=== PATIENT | male | born 1965 | race Caucasian/White ===

== ENCOUNTER 2020-07-15 11:02 | Inpatient (IN) | payer BC ==
[2020-07-15] MEDS ORDERED: ETOMIDATE 2 MG/ML 10 ML VIAL IVP STA (11:09)
[2020-07-15] MEDS ORDERED: HEPARIN SODIUM,PORCINE 5,000 UNIT/ML 1 ML VIAL IV STA (11:12)
[2020-07-15] MEDS ORDERED: ASPIRIN 81 MG PO STA (11:13)
--- NOTE | 2020-07-15 11:15 | ED ---
CPR HPI - General Stated Complaint: cardiac Time Seen by Provider: 07/15/20 11:02 - History of Present Illness Initial Comments: Patient is a 54-year-old male with past medical history of pulmonary fibrosis who presents to the emergency department status post cardiopulmonary arrest. History is provided by EMS. They report that the patient was at home with his and daughter. He is complaining of indigestion which she frequently has. He was taking Tums and carbon tablets at home without improvement in his symptoms. use the pulse ox on the patient and found his heart rate to be 44. Reported to him that she was given a call EMS and at this time is when the patient collapsed. She started do compressions on the patient. Fire did arrive at the scene and found the patient to be in V. fib. He was shocked twice before EMS arrived. EMS reported that they also found the patient to be in V. fib. He was administered 300 mg of amiodarone, 3 epinephrine and [address] a Kevin tube and were able to get rosc after approximately 20 minutes down time. The patient does present to the emergency department in a sinus rhythm. Patient does not have any previous history of cardiac disease. The remainder of HPI is limited - Related Data Home Medications Medication Instructions Recorded Confirmed Cetirizine HCl 10 mg PO DAILY 07/15/20 07/15/20 Loperamide HCl [Imodium A-D] 2 - 4 mg PO QID PRN 07/15/20 07/15/20 Nintedanib Esylate [Ofev] 150 mg PO Q12H 07/15/20 07/15/20 Omeprazole Magnesium [PriLOSEC OTC] 20 mg PO DAILY 07/15/20 07/15/20 Allergies Allergy/AdvReac Type Severity Reaction Status Date / Time Penicillins Allergy Rash/Hives Verified 07/15/20 12:05 Review of Systems ROS Statement: Those systems with pertinent positive or pertinent negative responses have been documented in the HPI. ROS Other: All systems not noted in ROS Statement are negative. General Exam Limitations: altered mental status General appearance: obtunded Head exam: Present: atraumatic, normocephalic, normal inspection Pupils: Present: other (4 mm, equal, sluggish) ENT exam: Present: normal exam, mucous membranes moist, other (kevin tube in place) Neck exam: Present: normal inspection. Absent: tenderness, meningismus, lymphadenopathy Respiratory exam: Present: normal lung sounds bilaterally, other (spontaneous respirations at 18/min). Absent: respiratory distress, wheezes, rales, rhonchi, stridor Cardiovascular Exam: Present: normal rhythm, tachycardia, normal heart sounds. Absent: systolic murmur, diastolic murmur, rubs, gallop, clicks GI/Abdominal exam: Present: soft, normal bowel sounds. Absent: distended, tenderness, guarding, rebound, rigid Extremities exam: Present: other (no spontanous extremity movement) Neurological exam: Present: altered, other (positive gag, spontanous respirations, opened eyes during tube placement.) Skin exam: Present: diaphoretic, pallor Course Vital Signs 07/15/20 11:10 Pulse Rate 104 H Respiratory 18 Rate Blood Pressure 98/78 O2 Sat by Pulse 100 Oximetry Medical Decision Making - Medical Decision Making Upon arrival the patient is probably placed in the trauma bay 2. He is hooked up to continuous pulse ox and cardiac monitoring. The patient does have a palpable carotid pulse. Bedside heart monitor does demonstrate a sinus tachycardia. I did remove the patient's Kevin tube and replace it with an ET tube. I do attempt to pass the tube the patient does open his eyes and gag. He is given 20 mg of etomidate. Tube was secured and patient does have spontaneous respirations on his own around 18. Blood pressures are obtained. 12-lead EKG was performed which does demonstrate ST elevation in the lateral leads. At this time, STEMI was activated. A portable chest x-rays performed to confirm tube placement. An NG tube was placed. The patient was given 4 chewable aspirins and a bolus of heparin. Dr. Quintanilla does present to the emergency department and agrees to take the patient to the [facility]. Patient's family does present to the emergency department after a short period of time. This is discussed with them that the patient has been sent to the [facility] for which they do understand the treatment plan. Patient remained in critical condition at this time - Lab Data Result diagrams: 07/23/20 10:20 07/23/20 10:20 Lab Results 07/15/20 07/15/20 07/15/20 Range/Units 11: 11: 11:20 WBC 46.1 H (3.8-10.6) k/uL RBC 5.32 (4.30-5.90) m/uL Hgb 16.3 (13.0-17.5) gm/dL Hct 52.4 (39.0-53.0) % MCV 98.5 (80.0-100.0) fL MCH 30.7 (25.0-35.0) pg MCHC 31.1 (31.0-37.0) g/dL RDW 13.3 (11.5-15.5) % Plt Count 385 (150-450) k/uL MPV 8.2 Neutrophils % (Manual) 57 % Band Neuts % (Manual) 14 % Lymphocytes % (Manual) 18 % Monocytes % (Manual) 2 % Eosinophils % (Manual) 1 % Basophils % (Manual) 1 % Metamyelocytes % 7 % Myelocytes % 2 % Neutrophils # (Manual) 32.70 H (1.3-7.7) k/uL Lymphocytes # (Manual) 8.30 H (1.0-4.8) k/uL Monocytes # (Manual) 0.92 (0-1.0) k/uL Eosinophils # (Manual) 0.46 (0-0.7) k/uL Basophils # (Manual) 0.46 H (0-0.2) k/uL Metamyelocytes # (Man) 3.23 H (0) k/uL Myelocytes # (Manual) 0.92 H (0) k/uL Nucleated RBCs 0 (0-0) /100 WBC Manual Slide Review Performed Hypochromasia Slight PT 10.2 (9.0-12.0) sec INR 1.0 (<1.2) APTT 28.0 (22.0-30.0) sec Sodium 137 (137-145) mmol/L Potassium 4.2 (3.5-5.1) mmol/L Chloride 104 (98-107) mmol/L Carbon Dioxide 11 L (22-30) mmol/L Anion Gap 22 mmol/L BUN 13 (9-20) mg/dL Creatinine 1.53 H (0.66-1.25) mg/dL Est GFR (CKD-EPI)AfAm 58 (>60 ml/min/1.73 sqM) Est GFR (CKD-EPI)NonAf 50 (>60 ml/min/1.73 sqM) Glucose 288 H (74-99) mg/dL Calcium 9.0 (8.4-10.2) mg/dL Total Bilirubin 1.0 (0.2-1.3) mg/dL AST 225 H (17-59) U/L ALT 114 H (4-49) U/L Alkaline Phosphatase 189 H (38-126) U/L Troponin I (0.000-0.034) ng/mL Total Protein 7.0 (6.3-8.2) g/dL Albumin 3.5 (3.5-5.0) g/dL //20 Range/Units 11:20 WBC (3.8-10.6) k/uL RBC (4.30-5.90) m/uL Hgb (13.0-17.5) gm/dL Hct (39.0-53.0) % MCV (80.0-100.0) fL MCH (25.0-35.0) pg MCHC (31.0-37.0) g/dL RDW (11.5-15.5) % Plt Count (150-450) k/uL MPV Neutrophils % (Manual) % Band Neuts % (Manual) % Lymphocytes % (Manual) % Monocytes % (Manual) % Eosinophils % (Manual) % Basophils % (Manual) % Metamyelocytes % % Myelocytes % % Neutrophils # (Manual) (1.3-7.7) k/uL Lymphocytes # (Manual) (1.0-4.8) k/uL Monocytes # (Manual) (0-1.0) k/uL Eosinophils # (Manual) (0-0.7) k/uL Basophils # (Manual) (0-0.2) k/uL Metamyelocytes # (Man) (0) k/uL Myelocytes # (Manual) (0) k/uL Nucleated RBCs (0-0) /100 WBC Manual Slide Review Hypochromasia PT (9.0-12.0) sec INR (<1.2) APTT (22.0-30.0) sec Sodium (137-145) mmol/L Potassium (3.5-5.1) mmol/L Chloride (98-107) mmol/L Carbon Dioxide (22-30) mmol/L Anion Gap mmol/L BUN (9-20) mg/dL Creatinine (0.66-1.25) mg/dL Est GFR (CKD-EPI)AfAm (>60 ml/min/1.73 sqM) Est GFR (CKD-EPI)NonAf (>60 ml/min/1.73 sqM) Glucose (74-99) mg/dL Calcium (8.4-10.2) mg/dL Total Bilirubin (0.2-1.3) mg/dL AST (17-59) U/L ALT (4-49) U/L Alkaline Phosphatase (38-126) U/L Troponin I 2.630 H* (0.000-0.034) ng/mL Total Protein (6.3-8.2) g/dL Albumin (3.5-5.0) g/dL - EKG Data EKG Comments: EKG done at 1109 and demonstrates a sinus tachycardia with a ventricular rate of 105. MI interval 154. QRS 84. QTC of 457. There is ST elevation in leads 1 and aVL as well as V2. Reciprocal changes and 2, 3 and aVF Disposition Clinical Impression: Cardiac arrest, Ventricular fibrillation, Ventilator dependence Disposition: ADMITTED IP TO THIS HOSP Condition: Serious Is patient prescribed a controlled substance at d/c from ED?: No Decision to Admit Reason: Admit from EC Decision Date: 07/15/20 Decision Time: 11:27
[2020-07-15] MEDS ORDERED: fentaNYL (PF) 50 MCG/ML 2 ML AMP ONE (11:22)
[2020-07-15] MEDS ORDERED: VERAPAMIL 2.5 MG/ML 2 ML AMP ONE (11:22)
[2020-07-15] MEDS ORDERED: LIDOCAINE 1% INJ 10MG/ML (20 ML MDV) ONE (11:22)
[2020-07-15] MEDS ORDERED: HEPARIN SODIUM 1,000 UN/ML (10ML VL) ONE (11:22)
[2020-07-15] MEDS ORDERED: ASPIRIN 300 MG SUPP RECTAL STA (11:29)
[2020-07-15] MEDS: MIDAZOLAM 2 MG/2 ML VIAL IVP ONE ×2 (11:35→11:42)
[2020-07-15] MEDS ORDERED: IV FLUID CONTINUATION 450 ML IV ONE (11:35)
--- NOTE | 2020-07-15 11:38 | XR ---
EXAMINATION TYPE: XR chest 1V portable DATE OF EXAM: 07/15/2020 HISTORY: Shortness of breath. COMPARISON: 07/15/2020 TECHNIQUE: Single view of the chest is submitted. FINDINGS: Diffuse bilateral infiltrates persist. Endotracheal tube is well-positioned. Hilar and mediastinal structures are within normal limits. Degenerative changes are seen of the dorsal spine. IMPRESSION: 1. Stable diffuse bilateral pulmonary infiltrates.
--- NOTE | 2020-07-15 11:40 | P.CRDCN ---
History of Present Illness Consult date: 07/15/20 History of present illness: HISTORY OF PRESENTING ILLNESS This is a 54-year-old male with past medical history significant for apparent cystic fibrosis and no other known medical history who presents status post cardiac arrest. Patient is intubated and history is obtained per chart and EMS. Patient had apparently been complaining of chest pain since this morning and took some antacids without any improvement. Patient then had a cardiac arrest and CPR was performed for approximately 20 minutes with ROSC obtained by EMS. Patient was found to be in V. fib arrest and patient was cardioverted. Patient presented to emergency department and did have a gag as well as opening eyes however not following commands and therefore patient was intubated. Patient has been off of any pressors and EKG was performed which shows ST elevation in the lateral leads. DIAGNOSTICS EKG reveals sinus tachycardia, ST elevation in 1, aVL with reciprocal ST depressions in inferior leads. Chest xray not interpreted yet however diffuse bilateral pulmonary edema. Laboratory pending REVIEW OF SYSTEMS At the time of my exam: Unable to be obtained secondary to intubated, family not at bedside. Apparently history of chest pain which started this morning PHYSICAL EXAMINATION Blood pressure 98/78 heart rate 104 afebrile and maintaining oxygen saturation on ventilator. CONSTITUTIONAL: Intubated, not responsive HEENT: Head is normocephalic. Pupils are equal, round. Sclerae anicteric. +ET tube. No JVD. No carotid bruit. CHEST EXAMINATION: Bilateral crackles HEART EXAMINATION: Tachycardic rate regular and rhythm. S1, S2 heard. No murmurs, gallops or rub. ABDOMEN: Soft, nontender. Positive bowel sounds. EXTREMITIES: 2+ peripheral pulses, no lower extremity edema and no calf tenderness. NEUROLOGIC EXAMINATION: Sedated and unresponsive on ventilator ASSESSMENT 1. Cardiac arrest with V. fib arrest status post defibrillation 2. Altered mental status, possible anoxic brain injury however patient did receive medications for intubation in the emergency department 3. Lateral STEMI 4. Bilateral pulmonary edema on x-ray PLAN Plan for emergency heart catheterization with possible PCI. Supportive care and monitor neurologic status. Check 2-D echo. Further recommendations to follow. Past Medical History Past Medical History: Unable to Obtain History of Any Multi-Drug Resistant Organisms: None Reported Past Surgical History: Unable to Obtain Past Psychological History: No Psychological Hx Reported Smoking Status: Unknown if ever smoked Past Alcohol Use History: None Reported Past Drug Use History: None Reported Medications and Allergies Allergies Allergy/AdvReac Type Severity Reaction Status Date / Time Unable to Assess Allergy Verified 07/15/20 11:21 Physical Exam Vitals: Vital Signs Pulse Resp BP Pulse Ox 07/15/20 11:10 104 H 18 98/78 100 Intake and Output 07/14/20 07/15/20 07/15/20 22:59 06:59 14:59 Other: Weight 113.398 kg Results Current Medications Generic Name Dose Route Start Last Admin Trade Name Freq PRN Reason Stop Dose Admin Heparin Sodium/Sodium Chloride 250 mls @ 10.002 mls/hr 07/15/20 11:15 25,000 unit/ Sodium Chloride IV .Q24H JB Protocol 8.82 UNITS/KG/HR Intake and Output 07/14/20 07/15/20 07/15/20 22:59 06:59 14:59 Other: Weight 113.398 kg Patient Weight 07/16/20 06:59 Weight 113.398 kg
[2020-07-15] MEDS: fentaNYL (PF) 50 MCG/ML 2 ML AMP IVP ONE ×2 (11:42→12:15)
[2020-07-15] MEDS ORDERED: LIDOCAINE 1% INJ 10MG/ML (20 ML MDV) SQ ONE (11:45)
[2020-07-15] MEDS ORDERED: VERAPAMIL SYRINGE (5 MG/10 ML) INTRAARTER ONE (11:47)
[2020-07-15 11:49] LABS: Albumin 3.5 g/dL (3.5-5.0)
[2020-07-15 11:51] LABS: Prothrombin Time 10.2 sec (9.0-12.0)
[2020-07-15 11:52] LABS: Potassium 4.2 mmol/L (3.5-5.1)
[2020-07-15] MEDS ORDERED: HEPARIN SODIUM 1,000 UN/ML (10ML VL) IV ONE (11:52)
[2020-07-15] MEDS ORDERED: NALOXONE 0.4 MG/ML 1 ML VIAL IV PRN (11:54)
[2020-07-15 12:02] LABS: HCT 52.4 % (39.0-53.0); HGB 16.3 gm/dL (13.0-17.5); Hypochromasia Slight; MCH 30.7 pg (25.0-35.0); MCHC 31.1 g/dL (31.0-37.0); MCV 98.5 fL (80.0-100.0); Mean Platelet Volume 8.2; Platelet Count 385 k/uL (150-450); RBC 5.32 m/uL (4.30-5.90); RDW 13.3 % (11.5-15.5); WBC 46.1 k/uL (3.8-10.6)
[2020-07-15] MEDS ORDERED: TIROFIBAN BOLUS 12.5MG/250 ML BAG IV ONE (12:05)
[2020-07-15] MEDS ORDERED: IOPAMIDOL-370 150ML BTL INJ ONE (12:05)
[2020-07-15] MEDS ORDERED: TIROFIBAN 12.5MG-250ML NS 250 ML IV ONE (12:11)
[2020-07-15] MEDS ORDERED: MIDAZOLAM 2 MG/2 ML VIAL IVP ONE (12:15)
[2020-07-15] MEDS ORDERED: IOPAMIDOL-370 100ML BTL INJ ONE (12:16)
--- NOTE | 2020-07-15 12:20 | P.PRCINT ---
Percutaneous Coronary Int. - Percutaneous Coronary Intervention Percutaneous Coronary Intervention: Procedures performed: Bilateral coronary angiography, PCI of the mid LAD with a 3.5 x 12 mm Xience CHAVA Procedure performed by: Dr Romeo Quintanilla DO Indications: Cardiac arrest, lateral STEMI HPI: Patient is a pleasant 54-year-old male with history of cystic fibrosis who presents secondary to cardiac arrest. Apparently he had been having chest pain throughout the morning and then had cardiac arrest with approximately 20 minutes of CPR performed. He was found to be in V. fib and cardioverted. He presented to emergency department and was intubated and had EKG performed that showed lateral ST elevations. Conscious sedation: Conscious sedation was performed under the direct supervion of myself using Versed and Fentanyl for a total of 26 mins. Description of procedure: The risks, benefits and alternatives of heart catheterization and PCI were explained in detail to the patient's family before the procedure and informed consent was obtained. Patient was prepped and draped in the usual fashion. 2% lidocaine was used to anesthetize the right radial artery area. A 6Fr sheath was placed in the right radial artery using modified Seldinger technique. Right coronary angiography was performed with a 5-Fijian FR5 catheter in various views. Left coronary angiography was performed with a 6-Fijian CLS 3.5 guide in various views. A decision was made to intervene on the LAD. Heparin was given for an ACT greater than 250. A 0.014 BMW wire was placed in the distal vessel. Next predilation was performed using a 2.5 x 12mm balloon. A 3.5 x 12 m Xience CHAVA stent was then placed. Angiograms were obtained in multiple views. Pre intervention there was 90 % stenosis and RICARDA 2 flow and post intervention there was 0% residual stenosis and RICARDA 3 flow and no evidence of any dissection. The re was apical 100% stenosis however this was felt best treated medically. The wire was then removed and final angiograms were obtained. The radial sheath was pulled and a TR band was placed with hemostasis achieved. The patient tolerated the procedure well. The patient was transferred to the post catheterization holding area in stable condition. Conclusions: 1. Successful PCI of mid LAD with a 3.5 x 12 mm Xience CHAVA. 2. V. fib cardiac arrest 3. Lateral STEMI Plan: 1. Aggressive risk factor modifications per most recent ACC/AHA guidelines. 2. Continue dual antiplatelets for 12 months. 3. Check 2-D echo. Monitor neurologic status.
[2020-07-15] MEDS ORDERED: NITROGLYCERIN SL TABS 0.4 MG TAB SUBLINGUAL PRN (12:21)
[2020-07-15] MEDS ORDERED: MAG HYDROX/AL HYDROX/SIMETH 30 ML CUP PO PRN (12:21)
[2020-07-15] MEDS ORDERED: ATROPINE SULFATE 0.1 MG/ML 10ML SYRINGE IV PRN (12:21)
[2020-07-15] MEDS ORDERED: ZOLPIDEM 5 MG TAB PO PRN (12:21)
[2020-07-15] MEDS ORDERED: RX INFO: IV CONTRAST WAS GIVEN 1 EACH MISC MISCELLANE PRN (12:21)
[2020-07-15] MEDS ORDERED: TICAGRELOR 90 MG TAB PO STA (12:23)
--- NOTE | 2020-07-15 12:39 | P.PN ---
Progress Note - Text Progress Note Date: 07/15/20 Cardiology progress note, addendum: Discussed with and family and they admit that patient does have a history of pulmonary fibrosis and had been seeing Dr Teresa Rosario out of [facility]. Patient has been getting worked up for possible lung transplant and in fact had an outpt heart cath scheduled for next week for transplant evaluation. We will consult Pulmonary and recommendations appreciated. Romeo Quintanilla, DO
[2020-07-15] MEDS ORDERED: TICAGRELOR 90 MG TAB ONE (12:45)
[2020-07-15 12:56] LABS: Band Neutrophils % 14 %; Basophils # (M) 0.46 k/uL (0-0.2); Eosinophils # (M) 0.46 k/uL (0-0.7); Metamyelocytes # (M) 3.23 k/uL (0); Metamyelocytes % 7 %; Monocytes # (M) 0.92 k/uL (0-1.0); Myelocytes # (M) 0.92 k/uL (0); Myelocytes % 2 %; Neutrophils % (M) 57 %; Nucleated Red Blood Cells 0 /100 WBC (0-0); Total Cells Counted 200
[2020-07-15 13:41] LABS: ABG Base Excess -9.9 mmol/L; ABG HCO3 18 mmol/L (21-25); ABG PCO2 43 mmHg (35-45); ABG PH 7.22 (7.35-7.45); ABG PO2 >400 mmHg (83-108); ABG TCO2 19 mmol/L (19-24); Allen Test Performed? Yes
[2020-07-15] MEDS ORDERED: SODIUM CHLORIDE 0.9% 500 ML 500 ML IV ONE ×2 (13:45→18:43)
[2020-07-15] MEDS ORDERED: SODIUM BICARB 8.4% 50 ML VIAL (1 MEQ/ML) IV ONE (14:25)
--- NOTE | 2020-07-15 17:27 | CT ---
EXAMINATION TYPE: CT brain wo con DATE OF EXAM: 07/15/2020 COMPARISON: None HISTORY: Fall, cardiac arrest. CT DLP: 1115.4 mGycm Automated exposure control for dose reduction was used. Ventricles and sulci appear normal. There is no mass effect nor midline shift. There is no sign of in tracranial hemorrhage. The calvarium is intact. There is no evidence of cerebral edema. There is mild left frontal scalp soft tissue swelling. IMPRESSION: No acute intracranial abnormality.
[2020-07-15 17:34] LABS: Glucose,Whole Blood 124 mg/dL (75-99)
--- NOTE | 2020-07-15 17:43 | P.CNPUL ---
History of Present Illness Consult date: 07/15/20 Requesting physician: Darnell Claudio Reason for consult: other (Critical care management) Chief complaint: Cardiac arrest History of present illness: This is a 54-year-old male patient with known history of pulmonary fibrosis and apparently is on the transplant list at the [facility]. He was supposed to have a pulmonary function tests done today however he was not feeling well. He was complaining of indigestion and developed worsening shortness of breath and his heart rate was 44. Before the was able to call EMS he collapsed at home. He was found to be in ventricular fibrillation and was shocked twice by the fire department. Upon arrival by EMS he was still in ventricular fibrillation had 4 more shocks 3 of epinephrine and bolused with amiodarone. He did develop return of spontaneous circulation and brought here to the emergency room. EKG revealed ST segment elevation in the lateral leads and the patient was subsequently taken emergently to [facility]. He had undergone stenting to the mid LAD lesion that was 90% stenosed. He remained intubated on mechanical ventilator and return to the intensive care unit where he is seen today in consultation. Computed tomography scan of the brain revealed no acute intracranial abnormality. Current vent settings are assist control at a rate of 18, tidal volume 450, FiO2 40% and a PEEP of 5 and arterial blood gases on 100% FiO2 revealed a pO2 greater than 400, pCO2 43 and a pH of 7.22. White count 46. Hemoglobin 16.3. Platelets 385. Sodium 137. Potassium 4.2. Creatinine 1.53. Glucose 288. AST 225. ALT 114. Troponin 2.63. Echocardiogram pending. Currently on propofol at 30 mcg/kg/m. Heparin drip. He was initiated on Brilinta. Review of Systems ROS unobtainable: due to endotracheal tube Past Medical History Past Medical History: Chest Pain / Angina, GERD/Reflux Additional Past Medical History / Comment(s): Idiopathic Pulm Fibrosis, chronic diahrrea, former smoker History of Any Multi-Drug Resistant Organisms: None Reported Past Surgical History: No Surgical Hx Reported Past Psychological History: No Psychological Hx Reported Smoking Status: Former smoker Past Alcohol Use History: None Reported Past Drug Use History: None Reported Medications and Allergies Home Medications Medication Instructions Recorded Confirmed Type Cetirizine HCl 10 mg PO DAILY 07/15/20 07/15/20 History Loperamide HCl [Imodium A-D] 2 - 4 mg PO QID PRN 07/15/20 07/15/20 History Nintedanib Esylate [Ofev] 150 mg PO Q12H 07/15/20 07/15/20 History Omeprazole Magnesium [PriLOSEC OTC] 20 mg PO DAILY 07/15/20 07/15/20 History Allergies Allergy/AdvReac Type Severity Reaction Status Date / Time Penicillins Allergy Rash/Hives Verified 07/15/20 12:05 Physical Exam Vitals: Vital Signs Temp Pulse Pulse Resp BP BP Pulse Ox 07/15/20 13:55 104 H 18 109/75 98 07/15/20 13:25 97 18 122/80 100 07/15/20 13:10 95 19 121/79 100 07/15/20 12:55 92 18 122/81 100 07/15/20 12:40 96.4 F L 94 18 129/79 100 07/15/20 11:10 104 H 18 98/78 100 Intake and Output 07/15/20 07/15/20 07/15/20 06:59 14:59 22:59 Intake Total 761.4 0.227 Output Total 300 Balance 461.4 0.227 Intake: IV 520.7 Intake, IV Titration 90.7 0.227 Amount Tirofiban 12.5MG-250Ml Ns 90.7 250 ml @ 0 mls/hr IV . [facility] Rx#: [id number] propofoL 1,000 mg In 0.227 Empty Bag 1 bag @ Titrate IV .Q0M [facility] Rx#: [id number] Oral 150 Output: Urine 300 Other: Weight 113.398 kg 113.398 kg GENERAL EXAM: Intubated, sedated 54-year-old gentleman. HEAD: Normocephalic. EYES: Normal reaction of pupils, equal size. NOSE: Clear with pink turbinates. THROAT: Oral endotracheal and gastric tube secured in place. No erythema or exudates. NECK: No masses, no JVD. CHEST: No chest wall deformity. LUNGS: Equal air entry with coarse crackles in the bilateral posterior bases. CVS: S1 and S2 normal with no audible murmur, regular rhythm. ABDOMEN: No hepatosplenomegaly, normal bowel sounds, no guarding or rigidity. SPINE: No scoliosis or deformity SKIN: No rashes CENTRAL NERVOUS SYSTEM: No focal deficits, tone is normal in all 4 extremities. EXTREMITIES: There is no peripheral edema. No clubbing, no cyanosis. Peripheral pulses are intact. Results - Laboratory Findings CBC and BMP: 07/15/20 11:20 07/15/20 11:20 ABG ABG pH 7.22 (7.35-7.45) L 07/15/20 13:26 ABG pCO2 43 mmHg (35-45) 07/15/20 13:26 ABG pO2 >400 mmHg (83-108) H 07/15/20 13:26 ABG O2 Saturation 100.0 % (94-97) H 07/15/20 13:26 PT/INR, D-dimer PT 10.2 sec (9.0-12.0) 07/15/20 11: INR 1.0 (<1.2) 07/15/20 11:20 Abnormal lab findings: Abnormal Labs 07/15/20 07/15/20 07/15/20 11:20 11:20 11:20 WBC 46.1 H Neutrophils # (Manual) 32.70 H Lymphocytes # (Manual) 8.30 H Basophils # (Manual) 0.46 H Metamyelocytes # (Man) 3.23 H Myelocytes # (Manual) 0.92 H ABG pH ABG pO2 ABG HCO3 ABG O2 Saturation Carbon Dioxide 11 L Creatinine 1.53 H Glucose 288 H AST 225 H ALT 114 H Alkaline Phosphatase 189 H Troponin I 2.630 H* 07/15/20 13:26 WBC Neutrophils # (Manual) Lymphocytes # (Manual) Basophils # (Manual) Metamyelocytes # (Man) Myelocytes # (Manual) ABG pH 7.22 L ABG pO2 >400 H ABG HCO3 18 L ABG O2 Saturation 100.0 H Carbon Dioxide Creatinine Glucose AST ALT Alkaline Phosphatase Troponin I - Diagnostic Findings Chest x-ray: image reviewed Assessment and Plan Assessment: 1 Cardiopulmonary arrest secondary to an acute ST segment elevation myocardial infarction approximately 20 minutes of CPR was performed including several defibrillations for ventricular fibrillation with subsequent return of spontaneous circulation 2 Coronary artery disease with 90s percent occlusion of the mid LAD with subsequent stent placement today 3 Acute hypoxic respiratory failure secondary to above currently intubated on mechanical ventilator 4 History of pulmonary fibrosis, reportedly on the transplant list at [facility] 5 History of chronic tobacco dependence Plan: The patient was seen and evaluated by Dr. Patton Chest x-ray, labs and ABGs reviewed Continue current ventilator settings for now Assess neurologic status Computed tomography scan of the brain revealed no acute intracranial process Repeat chest x-ray and ABGs in the a.m. We will continue to follow and make further recommendations based on his clinical status I, the cosigning physician, performed a history & physical examination of the patient. Lungs sounds lateral course crackles in the bases. Maintaining good O2 saturations in the 90s on 30% FiO2 via the mechanical ventilator. I discussed the assessment and plan of care with my nurse practitioner, Nette Dudley. I attest to the above consultation as dictated by her. Time with Patient: Greater than 30
--- NOTE | 2020-07-15 18:07 | P.CNNES ---
History of Present Illness Consult date: 07/15/20 Requesting physician: Darnell Claudio Reason for Consult: cardiac arrest and fall History of Present Illness: This is a 54 year-old gentleman with history of pulmonary fibrosis who presented to the emergency department on 07/15/2020 at around 1102 because of cardiac arrest. Patient is unable to by the history because of his condition therefore history is obtained from medical records. No family members at bedside. A ccording to the medical records the patient was at home with his and daughter. He was complaining of indigestion and was frequent. So he started taking Tums without any improvement in his symptoms. used the pulse ox on the patient and found his heart rate to be 44. She went to call EMS and then the patient stood up and fell in a closet. He had cardiac arrest lasting for 20 minutes. He had CPR. He was in Vib per EMS and was shocked twice by EMS. Any during 300 mg was administered, 3 epinephrine and for additional shocks. ROSC was achieved. Patient presented emergency department in a sinus rhythm. He presented emergency department and was intubated. His initial vitals were blood pressure of 598/78, heart rate 104, respiratory of 18, temperature of 96.4 Fahrenheit axillary and the pulse ox of 100% on the mechanical ventilation EKG and was reported as sinus tachycardia with occasional premature ventricular complexes. Low voltage QRS. Septal infarct, age undetermined. Lateral injury pattern. Acute NC/STEMI. Abnormal EKG. Patient was taken to the cardiac cath and he had a successful PCI of mild LAD. The cardiac cath the patient received Versed and fentanyl for a total of 26 minutes. His white blood cells on presentation was 46.1 and it was then neutrophilic but this seems reactive. Troponin is 2.63. Glucose is 288. Creatinine is 1.530. Per the patient ICU nurse she stated that the patient was biting on the vent tube and and as a result the head to start him on propofol. There is no seizure-like activity noted. Review of Systems The review of system as limited because of his condition but the prone positive and negative aspiration right. Past Medical History Past Medical History: Chest Pain / Angina, GERD/Reflux Additional Past Medical History / Comment(s): Idiopathic Pulm Fibrosis, chronic diahrrea, former smoker History of Any Multi-Drug Resistant Organisms: None Reported Past Surgical History: No Surgical Hx Reported Past Psychological History: No Psychological Hx Reported Smoking Status: Former smoker Past Alcohol Use History: None Reported Past Drug Use History: None Reported Medications and Allergies Home Medications Medication Instructions Recorded Confirmed Type Cetirizine HCl 10 mg PO DAILY 07/15/20 07/15/20 History Loperamide HCl [Imodium A-D] 2 - 4 mg PO QID PRN 07/15/20 07/15/20 History Nintedanib Esylate [Ofev] 150 mg PO Q12H 07/15/20 07/15/20 History Omeprazole Magnesium [PriLOSEC OTC] 20 mg PO DAILY 07/15/20 07/15/20 History Allergies Allergy/AdvReac Type Severity Reaction Status Date / Time Penicillins Allergy Rash/Hives Verified 07/15/20 12:05 Physical Examination - Vital Signs Vital Signs: Vital Signs Temp Pulse Pulse Resp BP BP Pulse Ox 07/15/20 13:55 104 H 18 109/75 98 07/15/20 13:25 97 18 122/80 100 07/15/20 13:10 95 19 121/79 100 07/15/20 12:55 92 18 122/81 100 07/15/20 12:40 96.4 F L 94 18 129/79 100 07/15/20 11:10 104 H 18 98/78 100 Intake and Output 07/15/20 07/15/20 07/15/20 06:59 14:59 22:59 Intake Total 761.4 Output Total 300 Balance 461.4 Intake: IV 520.7 Intake, IV Titration 90.7 Amount Tirofiban 12.5MG-250Ml Ns 90.7 250 ml @ 0 mls/hr IV . [facility] Rx#: [id number] Oral 150 Output: Urine 300 Other: Weight 113.398 kg 113.398 kg GENERAL: The patient is intubated on ventilator and on Propofol drip 50mcg/kg/min. HENT: Neck is supple. Left forehead has slight edema from fall. CHEST: The heart rate is regular rate rhythm. No murmurs to auscultation. LUNG: Intubad and on Mechanical ventilaror. Not in acute respiratory distress. Clear to auscultation throughout. Breathing over the vent. ABDOMEN/GI: Bowel sounds present in all 4 quadrants. No tenderness to palpation throughout. NEUROLOGICAL: Limited since patient on sedation. Higher mental function: The patient is comatose, GCS 3. Not opening eyes or following commands. Pupils are rounds and are about 2mm bilaterally and sluggishly reactive to light. Pupils are midline and no gaze deviation. +ve corneal reflex bilaterally. +Positive gag reflex. No facial weakness. Motor: Strength unable to assess because of patient's condition. No spontaneous movement noted. Sensation: Could not be assessed. Reflexes: 1+ throughout. Plantars are mute bilaterally. Results Ventilation study is a PT of 10.2, INR is 1.0, PTT of 28.0. - Laboratory Findings CBC and BMP: 07/15/20 11:20 07/15/20 11:20 Abnormal Lab Findings: Abnormal Labs 07/15/20 07/15/20 07/15/20 11: 11: 11:20 WBC 46.1 H Neutrophils # (Manual) 32.70 H Lymphocytes # (Manual) 8.30 H Basophils # (Manual) 0.46 H Metamyelocytes # (Man) 3.23 H Myelocytes # (Manual) 0.92 H ABG pH ABG pO2 ABG HCO3 ABG O2 Saturation Carbon Dioxide 11 L Creatinine 1.53 H Glucose 288 H AST 225 H ALT 114 H Alkaline Phosphatase 189 H Troponin I 2.630 H* 07/15/20 13:26 WBC Neutrophils # (Manual) Lymphocytes # (Manual) Basophils # (Manual) Metamyelocytes # (Man) Myelocytes # (Manual) ABG pH 7.22 L ABG pO2 >400 H ABG HCO3 18 L ABG O2 Saturation 100.0 H Carbon Dioxide Creatinine Glucose AST ALT Alkaline Phosphatase Troponin I Assessment and Plan Assessment: This is a 54 year-old gentleman with history of pulmonary fibrosis who presented to the emergency department on 07/15/2020 because of cardiac arrest at home lasting 20 minutes. CPR was started and he was in V-fib and received shocked by EMS. As result he was intubated and on ventilaror. EKG showed STEMI Encephalopathy the due primarily anoxic brain injury from his cardiac arrest an d elevated LFT, ALMAZ and current sedation (on Propofol) and received IV sedation during PCI. Cardiac arrest lasting 20 minutes STEMI status post PCI Elevated troponin due to above Acute hypoxic respiratory failure requiring mechanical ventilation Acute kidney injury Elevated liver function tests due to above (like as shock to liver) History of pulmonary fibrosis Plan: CT of the head: No acute intracranial abnormality. I personally reviewed it in the felt maybe there's very subtle loss of vega-white matter differentiation otherwise there is no acute ischemia or any inflammation or hemorrhages seen on the CT of the head that. For now we'll will not start the patient on any antiepileptic drug as since there is no clinical seizure. I notified the nurse to have the holidays sedation and to have good neuro-exam. If patient continues to have change in mentation the will consider getting the routine EEG. Cardiology is on board. Patient is currently on aspirin 81 mg 's well as the Berlant 90 mg twice a day started by cardiology. I'll defer the medical managements and the respiratory management to the primary team/ICU team. The plan was discussed with the patient ICU nurse. Thank you for the consultation. Jose Villa M.D. Neuro-hospitalist Time with Patient: Greater than 30
--- NOTE | 2020-07-15 18:34 | P.HPIM ---
History of Present Illness H&P Date: 07/15/20 Chief Complaint: V Fib Arrest 54 year old man with history of pulmonary fibrosis in line to receive lung transplant (treated with nintedanib) presented after complaining of indigestion, then having syncopal, then pulseless episode. He was down for approximately 20 minutes prior to EMS arrival, during which time his had begun chest compressions. Initial rhythm was V Fib, and patient was shocked 4 times en route with ROSC; he also rec'd 300mg amiodarone, and 3 rounds of epinephrine during the code. Patient was intubated in the field, and had gag reflex. Pt was seen in the emergency room and noted to have septo-lateral STEMI, and cath lab radiology technician was called emergently. Pt underwent revascularation of 90% occluded mid- LAD, with noted 100% apical occlusion. Pt was loaded with brillinta in the lab, and returned to the ICU in stable condition. ROS could not be completed due to patient medical condition. Review of Systems See HPI Past Medical History Past Medical History: Chest Pain / Angina, GERD/Reflux Additional Past Medical History / Comment(s): Idiopathic Pulm Fibrosis, chronic diahrrea, former smoker History of Any Multi-Drug Resistant Organisms: None Reported Past Surgical History: No Surgical Hx Reported Past Psychological History: No Psychological Hx Reported Smoking Status: Former smoker Past Alcohol Use History: None Reported Past Drug Use History: None Reported Medications and Allergies Home Medications Medication Instructions Recorded Confirmed Type Cetirizine HCl 10 mg PO DAILY 07/15/20 07/15/20 History Loperamide HCl [Imodium A-D] 2 - 4 mg PO QID PRN 07/15/20 07/15/20 History Nintedanib Esylate [Ofev] 150 mg PO Q12H 07/15/20 07/15/20 History Omeprazole Magnesium [PriLOSEC OTC] 20 mg PO DAILY 07/15/20 07/15/20 History Allergies Allergy/AdvReac Type Severity Reaction Status Date / Time Penicillins Allergy Rash/Hives Verified 07/15/20 12:05 Physical Exam Osteopathic Statement: *. No significant issues noted on an osteopathic structural exam other than those noted in the History and Physical/Consult. Vitals: Vital Signs Temp Pulse Pulse Resp BP BP Pulse Ox 07/15/20 18:00 104 H 26 H 95/74 96 07/15/20 17:45 104 H 20 95/74 07/15/20 17:30 107 H 20 104/72 99 07/15/20 17:15 104/72 07/15/20 17:00 104/72 07/15/20 16:45 109 H 20 103/60 07/15/20 16:30 106 H 20 101/79 07/15/20 16:15 107 H 20 99/79 07/15/20 16:00 106 H 20 107/71 07/15/20 15:45 106 H 20 104/82 07/15/20 15:30 104 H 24 101/71 95 07/15/20 15:15 104 H 26 H 108/78 07/15/20 15:00 97.5 F L 105 H 18 95 07/15/20 13:55 104 H 18 109/75 98 07/15/20 13:25 97 18 122/80 100 07/15/20 13:10 95 19 121/79 100 07/15/20 12:55 92 18 122/81 100 07/15/20 12:40 96.4 F L 94 18 129/79 100 07/15/20 11:10 104 H 18 98/78 100 Intake and Output 07/15/20 07/15/20 07/15/20 06:59 14:59 22:59 Intake Total 761.4 237.134 Output Total 300 110 Balance 461.4 127.134 Intake: IV 520.7 225 NS @ 75 225 Intake, IV Titration 90.7 12.134 Amount Tirofiban 12.5MG-250Ml Ns 90.7 250 ml @ 0 mls/hr IV . [facility] Rx#: [id number] propofoL 1,000 mg In 12.134 Empty Bag 1 bag @ Titrate IV .Q0M [facility] Rx#: [id number] Oral 150 Output: Urine 300 110 Other: Weight 113.398 kg 113.398 kg Gen: Sedated, intubated HEENT: normocephalic, atraumatic, no JVD Resp: vent settings- rate 18, FiO2 100%, TV 450, PEEP 5 CVS: good distal perfusion x 4, RRR, no murmurs, clicks, gallops GI: soft, NTTP, ND : no SPT, no CVAT, rose catheter is present MSK: no pitting edema, no clubbing Neuro: +gag reflex, cough reflex; difficult to examine remainder of neuro due to sedation Results CBC & Chem 7: 07/15/20 11:20 07/15/20 11: Labs: Abnormal Lab Results - Last 24 Hours (Table) 07/15/20 07/15/20 07/15/20 Range/Units 11: 11: 11: WBC 46.1 H (3.8-10.6) k/uL Neutrophils # (Manual) 32.70 H (1.3-7.7) k/uL Lymphocytes # (Manual) 8.30 H (1.0-4.8) k/uL Basophils # (Manual) 0.46 H (0-0.2) k/uL Metamyelocytes # (Man) 3.23 H (0) k/uL Myelocytes # (Manual) 0.92 H (0) k/uL ABG pH (7.35-7.45) ABG pO2 (83-108) mmHg ABG HCO3 (21-25) mmol/L ABG O2 Saturation (94-97) % Carbon Dioxide 11 L (22-30) mmol/L Creatinine 1.53 H (0.66-1.25) mg/dL Glucose 288 H (74-99) mg/dL POC Glucose (mg/dL) (75-99) mg/dL AST 225 H (17-59) U/L ALT 114 H (4-49) U/L Alkaline Phosphatase 189 H (38-126) U/L Troponin I 2.630 H* (0.000-0.034) ng/mL 07/15/20 07/15/20 Range/Units 13:26 17:32 WBC (3.8-10.6) k/uL Neutrophils # (Manual) (1.3-7.7) k/uL Lymphocytes # (Manual) (1.0-4.8) k/uL Basophils # (Manual) (0-0.2) k/uL Metamyelocytes # (Man) (0) k/uL Myelocytes # (Manual) (0) k/uL ABG pH 7.22 L (7.35-7.45) ABG pO2 >400 H (83-108) mmHg ABG HCO3 18 L (21-25) mmol/L ABG O2 Saturation 100.0 H (94-97) % Carbon Dioxide (22-30) mmol/L Creatinine (0.66-1.25) mg/dL Glucose (74-99) mg/dL POC Glucose (mg/dL) 124 H (75-99) mg/dL AST (17-59) U/L ALT (4-49) U/L Alkaline Phosphatase (38-126) U/L Troponin I (0.000-0.034) ng/mL Thrombosis Risk Factor Assmnt - Choose All That Apply Any of the Below Risk Factors Present?: Yes Each Factor Represents 1 point: Acute [place], Age 41-60 years, Medical pt on bed rest, Obesity (BMI >25) Thrombosis Risk Factor Assessment Total Risk Factor Score: 4 Thrombosis Risk Factor Assessment Level: Moderate Risk Assessment and Plan Assessment: 1. Ventricular Fibrillation related Cardiac Arrest 2. Marcus-lateral STEMI, successful revascularization 3. Pulmonary Fibrosis on nintedanib 4. Anoxic Brain Injury, suspected but not confirmed 54 year old man with pulmonary fibrosis on nintedanib presented with cardiac arrest related to v fib secondary to marcus-lateral STEMI, who underwent successful revascularization with initial neurological status undetermined, but hopeful given gag and cough reflex. Plan: - admit to ICU, telemetry - ICU consult, Neuro consult, Cardiology consult - continue DAPT - sedation trial tomorrow with assessment of neurological function - CTH rule out intracranial bleed - monitor I/Os - titrate on metoprolol in next 24 hours if pressures tolerate - echocardiogram to evaluate function Full Code
[2020-07-15 19:07] LABS: ABG Base Excess -4.9 mmol/L; ABG HCO3 20 mmol/L (21-25); ABG Oxygen Saturation 98.2 % (94-97); ABG PCO2 35 mmHg (35-45); ABG PH 7.37 (7.35-7.45); ABG PO2 132 mmHg (83-108); ABG TCO2 21 mmol/L (19-24); Allen Test Performed? Yes
[2020-07-15] MEDS: TICAGRELOR 90 MG TAB PO SCH (20:46)
[2020-07-15] MEDS: METOPROLOL TARTRATE 25 MG TAB PO SCH (20:46)
[2020-07-15] MEDS: CHLORHEXIDINE GLUCONATE 15 ML CUP MUCOUS MEM SCH (20:46)
[2020-07-16] MEDS: ACETAMINOPHEN TAB 325 MG TAB PO PRN (00:42)
[2020-07-16 04:09] LABS: Glucose,Whole Blood 97 mg/dL (75-99)
[2020-07-16] MEDS: HEPARIN SOD,PORK IN 0.45% NACL 25,000 UNIT in 0.45% NACL 1 250ML.BAG IV SCH ×2 (04:44→12:17)
[2020-07-16 04:45] LABS: ABG Base Excess -3.9 mmol/L; ABG HCO3 21 mmol/L (21-25); ABG Oxygen Saturation 99.4 % (94-97); ABG PCO2 34 mmHg (35-45); ABG PO2 129 mmHg (83-108); ABG TCO2 22 mmol/L (19-24); Allen Test Performed? Yes
[2020-07-16 05:27] LABS: Basophils % (A) 0 %; Eosinophils # (A) 0.1 k/uL (0-0.7); Eosinophils % (A) 0 %; HCT 49.3 % (39.0-53.0); HGB 15.7 gm/dL (13.0-17.5); Lymphocytes # (A) 2.1 k/uL (1.0-4.8); Lymphocytes % (A) 10 %; MCH 30.4 pg (25.0-35.0); MCHC 31.9 g/dL (31.0-37.0); MCV 95.4 fL (80.0-100.0); Mean Platelet Volume 6.9; Monocytes # (A) 0.9 k/uL (0-1.0); Monocytes % (A) 4 %; Neutrophils # (A) 18.8 k/uL (1.3-7.7); Neutrophils % (A) 85 %; Platelet Count 335 k/uL (150-450); RBC 5.17 m/uL (4.30-5.90); RDW 13.7 % (11.5-15.5)
[2020-07-16 06:01] LABS: Magnesium 1.8 mg/dL (1.6-2.3); Phosphorus 4.7 mg/dL (2.5-4.5); Potassium 4.9 mmol/L (3.5-5.1)
--- NOTE | 2020-07-16 08:02 | XR ---
EXAMINATION TYPE: XR chest 1V DATE OF EXAM: 07/16/2020 COMPARISON: 07/15/2020 HISTORY: SOB, Follow Up FINDINGS: Endotracheal tube unchanged in position. NG tube is now seen coursing into the stomach. She's bilateral infiltrates redemonstrated. Stable appearance of the cardio-mediastinal structures at this time. Pleural effusion unchanged. IMPRESSION: 1. Stable infiltrates. Appropriate placement of NG tube. Clinical correlation and follow up until res olution is recommended.
[2020-07-16 08:10] LABS: Glucose,Whole Blood 107 mg/dL (75-99)
[2020-07-16] MEDS: FUROSEMIDE 10 MG/ML 4 ML VIAL IV SCH (08:23)
[2020-07-16] MEDS: ASPIRIN 81 MG PO SCH (08:23)
[2020-07-16] MEDS: CHLORHEXIDINE GLUCONATE 15 ML CUP MUCOUS MEM SCH ×2 (08:23→21:56)
[2020-07-16] MEDS: METOPROLOL TARTRATE 25 MG TAB PO SCH ×2 (08:23→21:56)
[2020-07-16] MEDS: TICAGRELOR 90 MG TAB PO SCH ×2 (08:23→21:56)
[2020-07-16] MEDS: PANTOPRAZOLE 40 MG/10 ML VIAL IV SCH (08:23)
--- NOTE | 2020-07-16 10:16 | P.PN ---
Subjective Principal diagnosis: Cardiac arrest Objective - Vital Signs Vital signs: Vital Signs Temp 98.4 F 07/16/20 08:00 Pulse 89 07/16/20 10:00 Resp 18 07/16/20 10:00 BP 102/75 07/16/20 10:00 Pulse Ox 97 07/16/20 10:00 Intake & Output 07/15/20 07/16/20 07/16/20 18:59 06:59 18:59 Intake Total 685.869 5381.597 75 Output Total 410 420 40 Balance 238.612 5773.597 35 Weight 113.398 kg Intake: IV 745.7 1400 75 NS @ 75 225 900 75 Sodium Chloride 0.9% 500 500 ml 500 ml @ 999 mls/hr IV .[facility] Rx#:[id number] Intake, IV Titration 102.834 229.597 Amount Tirofiban 12.5MG-250Ml Ns 90.7 250 ml @ 0 mls/hr IV . [facility] Rx#: [id number] propofoL 1,000 mg In 12.134 229.597 Empty Bag 1 bag @ Titrate IV .Q0M [facility] Rx#: [id number] Oral 150 Output: Urine 410 420 40 Other: Voiding Method Indwelling Catheter Indwelling Catheter - Exam GENERAL: The patient is intubated on ventilator HENT: Neck is supple. cardiac : The heart rate is regular rate rhythm. No murmurs to auscultation. LUNG: Intubad and on Mechanical ventilaror. ABDOMEN/GI: Bowel sounds present in all 4 quadrants. No tenderness to palpation throughout. NEUROLOGICAL: Limited since patient on sedation. - Labs CBC & Chem 7: 07/16/20 04:46 07/16/20 04:46 Labs: Abnormal Lab Results - Last 24 Hours (Table) 07/15/20 07/15/20 07/15/20 Range/Units 11: 11: 11: WBC 46.1 H (3.8-10.6) k/uL Neutrophils # (1.3-7.7) k/uL Neutrophils # (Manual) 32.70 H (1.3-7.7) k/uL Lymphocytes # (Manual) 8.30 H (1.0-4.8) k/uL Basophils # (Manual) 0.46 H (0-0.2) k/uL Metamyelocytes # (Man) 3.23 H (0) k/uL Myelocytes # (Manual) 0.92 H (0) k/uL ABG pH (7.35-7.45) ABG pCO2 (35-45) mmHg ABG pO2 (83-108) mmHg ABG HCO3 (21-25) mmol/L ABG O2 Saturation (94-97) % Sodium (137-145) mmol/L Carbon Dioxide 11 L (22-30) mmol/L Creatinine 1.53 H (0.66-1.25) mg/dL Glucose 288 H (74-99) mg/dL POC Glucose (mg/dL) (75-99) mg/dL Phosphorus (2.5-4.5) mg/dL AST 225 H (17-59) U/L ALT 114 H (4-49) U/L Alkaline Phosphatase 189 H (38-126) U/L Troponin I 2.630 H* (0.000-0.034) ng/mL 07/15/20 07/15/20 07/15/20 Range/Units 13:26 17:32 19:01 WBC (3.8-10.6) k/uL Neutrophils # (1.3-7.7) k/uL Neutrophils # (Manual) (1.3-7.7) k/uL Lymphocytes # (Manual) (1.0-4.8) k/uL Basophils # (Manual) (0-0.2) k/uL Metamyelocytes # (Man) (0) k/uL Myelocytes # (Manual) (0) k/uL ABG pH 7.22 L (7.35-7.45) ABG pCO2 (35-45) mmHg ABG pO2 >400 H 132 H (83-108) mmHg ABG HCO3 18 L 20 L (21-25) mmol/L ABG O2 Saturation 100.0 H 98.2 H (94-97) % Sodium (137-145) mmol/L Carbon Dioxide (22-30) mmol/L Creatinine (0.66-1.25) mg/dL Glucose (74-99) mg/dL POC Glucose (mg/dL) 124 H (75-99) mg/dL Phosphorus (2.5-4.5) mg/dL AST (17-59) U/L ALT (4-49) U/L Alkaline Phosphatase (38-126) U/L Troponin I (0.000-0.034) ng/mL 07/16/20 07/16/20 07/16/20 Range/Units 04:43 04:46 04:46 WBC 22.0 H (3.8-10.6) k/uL Neutrophils # 18.8 H (1.3-7.7) k/uL Neutrophils # (Manual) (1.3-7.7) k/uL Lymphocytes # (Manual) (1.0-4.8) k/uL Basophils # (Manual) (0-0.2) k/uL Metamyelocytes # (Man) (0) k/uL Myelocytes # (Manual) (0) k/uL ABG pH (7.35-7.45) ABG pCO2 34 L (35-45) mmHg ABG pO2 129 H (83-108) mmHg ABG HCO3 (21-25) mmol/L ABG O2 Saturation 99.4 H (94-97) % Sodium 136 L (137-145) mmol/L Carbon Dioxide (22-30) mmol/L Creatinine 1.37 H (0.66-1.25) mg/dL Glucose 120 H (74-99) mg/dL POC Glucose (mg/dL) (75-99) mg/dL Phosphorus 4.7 H (2.5-4.5) mg/dL AST (17-59) U/L ALT (4-49) U/L Alkaline Phosphatase (38-126) U/L Troponin I (0.000-0.034) ng/mL 07/16/20 Range/Units 08:09 WBC (3.8-10.6) k/uL Neutrophils # (1.3-7.7) k/uL Neutrophils # (Manual) (1.3-7.7) k/uL Lymphocytes # (Manual) (1.0-4.8) k/uL Basophils # (Manual) (0-0.2) k/uL Metamyelocytes # (Man) (0) k/uL Myelocytes # (Manual) (0) k/uL ABG pH (7.35-7.45) ABG pCO2 (35-45) mmHg ABG pO2 (83-108) mmHg ABG HCO3 (21-25) mmol/L ABG O2 Saturation (94-97) % Sodium (137-145) mmol/L Carbon Dioxide (22-30) mmol/L Creatinine (0.66-1.25) mg/dL Glucose (74-99) mg/dL POC Glucose (mg/dL) 107 H (75-99) mg/dL Phosphorus (2.5-4.5) mg/dL AST (17-59) U/L ALT (4-49) U/L Alkaline Phosphatase (38-126) U/L Troponin I (0.000-0.034) ng/mL Microbiology - Last 24 Hours (Table) 07/15/20 23:00 Urine Culture - Preliminary Urine,Catheterized Assessment and Plan Plan: 1. Ventricular Fibrillation related Cardiac Arrest 2. Marcus-lateral STEMI, successful revascularization 3. Pulmonary Fibrosis on nintedanib 4. Encephalopathy the due primarily anoxic brain injury from his cardiac arrest 5. Leukocytosis 6. ALMAZ 2/2 decreased perfusion : scr 1.3 54 year old man with pulmonary fibrosis on nintedanib presented with cardiac arrest related to v fib secondary to marcus-lateral STEMI, who underwent successful revascularization Plan: - ICU consult, Neuro consult, Cardiology consult - on metoprolol , aspirin, Lasix and heparin. Continue supportive care Continue to check neurological status
--- NOTE | 2020-07-16 11:46 | P.PN ---
Subjective Progress Note Date: 07/16/20 Principal diagnosis: Cardiac arrest and [place] This is a 54-year-old gentleman with history of pulmonary fibrosis who was being evaluated at [facility] for possible lung transplant. He was apparently scheduled to have a cardiac catheterization next week. He however was admitted with chest pain and cardiac arrest with resuscitation that was about 20 minutes long. Are Patient revealed critical lesion in the mid LAD and total occlusion of the distal LAD. Patient had stent placement of the mid LAD. Patient has been maintaining sinus rhythm. Patient is intubated. Apparently patient has brain stem reflexes. Still has signs of anoxic encephalopathy. Patient is having good urinary output. Patient is on antiplatelet agents and beta blockers being given through the NG tube. Vital signs are stable. We'll continue current medical therapy. Pulmonary is also following along with neurology. It. Prognosis is guarded at this time Objective - Vital Signs Vital signs: Vital Signs Temp 98.4 F 07/16/20 08:00 Pulse 91 07/16/20 11:00 Resp 11 L 07/16/20 11:00 BP 106/72 07/16/20 11:00 Pulse Ox 97 07/16/20 11:00 Intake & Output 07/15/20 07/16/20 07/16/20 18:59 06:59 18:59 Intake Total 568.316 9498.597 375 Output Total 410 420 640 Balance 797.952 9960.597 -265 Weight 113.398 kg Intake: IV 745.7 1400 375 NS @ 75 225 900 375 Sodium Chloride 0.9% 500 500 ml 500 ml @ 999 mls/hr IV .Q31M [facility] Rx#:[id number] Intake, IV Titration 102.834 229.597 Amount Tirofiban 12.5MG-250Ml Ns 90.7 250 ml @ 0 mls/hr IV . [facility] Rx#: [id number] propofoL 1,000 mg In 12.134 229.597 Empty Bag 1 bag @ Titrate IV .Q0M [facility] Rx#: [id number] Oral 150 Output: Urine 410 420 640 Other: Voiding Method Indwelling Catheter Indwelling Catheter Indwelling Catheter - Exam GENERAL EXAM: Patient is intubated and sedated HEENT: Normocephalic. Normal reaction of pupils, equal size, normal range of extraocular motion. No erythema or exudates in the throat. NECK: No masses, no nuchal rigidity. CHEST: No chest wall deformity. LUNGS: Diminished air entry HEART: S1 and S2 normal . ABDOMEN: Soft SKIN: No rashes CENTRAL NERVOUS SYSTEM: As per neurology. Patient has brain stem reflexes EXTREMITIES: No cyanosis, clubbing or edema. - Labs CBC & Chem 7: 07/16/20 04:46 07/16/20 04:46 Labs: Abnormal Lab Results - Last 24 Hours (Table) 07/15/20 07/15/20 07/15/20 Range/Units 11: 11: 11: WBC 46.1 H (3.8-10.6) k/uL Neutrophils # (1.3-7.7) k/uL Neutrophils # (Manual) 32.70 H (1.3-7.7) k/uL Lymphocytes # (Manual) 8.30 H (1.0-4.8) k/uL Basophils # (Manual) 0.46 H (0-0.2) k/uL Metamyelocytes # (Man) 3.23 H (0) k/uL Myelocytes # (Manual) 0.92 H (0) k/uL ABG pH (7.35-7.45) ABG pCO2 (35-45) mmHg ABG pO2 (83-108) mmHg ABG HCO3 (21-25) mmol/L ABG O2 Saturation (94-97) % Sodium (137-145) mmol/L Carbon Dioxide 11 L (22-30) mmol/L Creatinine 1.53 H (0.66-1.25) mg/dL Glucose 288 H (74-99) mg/dL POC Glucose (mg/dL) (75-99) mg/dL Phosphorus (2.5-4.5) mg/dL AST 225 H (17-59) U/L ALT 114 H (4-49) U/L Alkaline Phosphatase 189 H (38-126) U/L Troponin I 2.630 H* (0.000-0.034) ng/mL 07/15/20 07/15/20 07/15/20 Range/Units 13:26 17:32 19:01 WBC (3.8-10.6) k/uL Neutrophils # (1.3-7.7) k/uL Neutrophils # (Manual) (1.3-7.7) k/uL Lymphocytes # (Manual) (1.0-4.8) k/uL Basophils # (Manual) (0-0.2) k/uL Metamyelocytes # (Man) (0) k/uL Myelocytes # (Manual) (0) k/uL ABG pH 7.22 L (7.35-7.45) ABG pCO2 (35-45) mmHg ABG pO2 >400 H 132 H (83-108) mmHg ABG HCO3 18 L 20 L (21-25) mmol/L ABG O2 Saturation 100.0 H 98.2 H (94-97) % Sodium (137-145) mmol/L Carbon Dioxide (22-30) mmol/L Creatinine (0.66-1.25) mg/dL Glucose (74-99) mg/dL POC Glucose (mg/dL) 124 H (75-99) mg/dL Phosphorus (2.5-4.5) mg/dL AST (17-59) U/L ALT (4-49) U/L Alkaline Phosphatase (38-126) U/L Troponin I (0.000-0.034) ng/mL 07/16/20 07/16/20 07/16/20 Range/Units 04:43 04:46 04:46 WBC 22.0 H (3.8-10.6) k/uL Neutrophils # 18.8 H (1.3-7.7) k/uL Neutrophils # (Manual) (1.3-7.7) k/uL Lymphocytes # (Manual) (1.0-4.8) k/uL Basophils # (Manual) (0-0.2) k/uL Metamyelocytes # (Man) (0) k/uL Myelocytes # (Manual) (0) k/uL ABG pH (7.35-7.45) ABG pCO2 34 L (35-45) mmHg ABG pO2 129 H (83-108) mmHg ABG HCO3 (21-25) mmol/L ABG O2 Saturation 99.4 H (94-97) % Sodium 136 L (137-145) mmol/L Carbon Dioxide (22-30) mmol/L Creatinine 1.37 H (0.66-1.25) mg/dL Glucose 120 H (74-99) mg/dL POC Glucose (mg/dL) (75-99) mg/dL Phosphorus 4.7 H (2.5-4.5) mg/dL AST (17-59) U/L ALT (4-49) U/L Alkaline Phosphatase (38-126) U/L Troponin I (0.000-0.034) ng/mL 07/16/20 Range/Units 08:09 WBC (3.8-10.6) k/uL Neutrophils # (1.3-7.7) k/uL Neutrophils # (Manual) (1.3-7.7) k/uL Lymphocytes # (Manual) (1.0-4.8) k/uL Basophils # (Manual) (0-0.2) k/uL Metamyelocytes # (Man) (0) k/uL Myelocytes # (Manual) (0) k/uL ABG pH (7.35-7.45) ABG pCO2 (35-45) mmHg ABG pO2 (83-108) mmHg ABG HCO3 (21-25) mmol/L ABG O2 Saturation (94-97) % Sodium (137-145) mmol/L Carbon Dioxide (22-30) mmol/L Creatinine (0.66-1.25) mg/dL Glucose (74-99) mg/dL POC Glucose (mg/dL) 107 H (75-99) mg/dL Phosphorus (2.5-4.5) mg/dL AST (17-59) U/L ALT (4-49) U/L Alkaline Phosphatase (38-126) U/L Troponin I (0.000-0.034) ng/mL Microbiology - Last 24 Hours (Table) 07/15/20 23:00 Urine Culture - Preliminary Urine,Catheterized Assessment and Plan (1) S/P coronary artery stent placement Current Visit: Yes Status: Acute Code(s): Z95.5 - PRESENCE OF CORONARY ANGIOPLASTY IMPLANT AND GRAFT SNOMED Code(s): 062456916 (2) Cardiac arrest Current Visit: Yes Status: Acute Code(s): I46.9 - CARDIAC ARREST, CAUSE UNSPECIFIED SNOMED Code(s): 127873118 (3) Hypoxic encephalopathy Current Visit: Yes Status: Acute Code(s): G93.1 - ANOXIC BRAIN DAMAGE, NOT ELSEWHERE CLASSIFIED SNOMED Code(s): 295362916 (4) History of pulmonary fibrosis Current Visit: Yes Status: Acute Code(s): Z87.09 - PERSONAL HISTORY OF OTHER DISEASES OF THE RESPIRATORY SYSTEM SNOMED Code(s): 517515372 Plan: Continue current management. Echocardiogram tomorrow. Further recommendations depend upon clinical course. Time with Patient: Less than 30
[2020-07-16 12:16] LABS: Hemoglobin A1C 5.6 % (4.0-6.0)
--- NOTE | 2020-07-16 13:00 | P.PN ---
Subjective Progress Note Date: 07/16/20 Patient was seen at bedside and the per the patient nurse the patient is on IV Propofol 10 mcg/kg/min. the propofol was off the patient is not followed commands but would open his eyes. There is no jerk in the of any of the extremities. There is no fixed gaze deviation noted by the nurse at. He continues to be breathing over the events. Objective - Vital Signs Vital signs: Vital Signs Temp 98.4 F 07/16/20 08:00 Pulse 91 07/16/20 11:00 Resp 11 L 07/16/20 11:00 BP 106/72 07/16/20 11:00 Pulse Ox 97 07/16/20 11:00 Intake & Output 07/15/20 07/16/20 07/16/20 18:59 06:59 18:59 Intake Total 274.001 3859.597 375 Output Total 410 420 640 Balance 488.129 2485.597 -265 Weight 113.398 kg Intake: IV 745.7 1400 375 NS @ 75 225 900 375 Sodium Chloride 0.9% 500 500 ml 500 ml @ 999 mls/hr IV .Q31M [facility] Rx#:[id number] Intake, IV Titration 102.834 229.597 Amount Tirofiban 12.5MG-250Ml Ns 90.7 250 ml @ 0 mls/hr IV . [facility] Rx#: [id number] propofoL 1,000 mg In 12.134 229.597 Empty Bag 1 bag @ Titrate IV .Q0M [facility] Rx#: [id number] Oral 150 Output: Urine 410 420 640 Other: Voiding Method Indwelling Catheter Indwelling Catheter Indwelling Catheter - Exam GENERAL: The patient is intubated on ventilator and on IV Propofol drip 10mcg/kg/min and was held upon examining patient. HENT: Neck is supple. Left forehead has slight edema from fall. NEUROLOGICAL: Limited since patient on sedation. Higher mental function: The patient is comatose, GCS 3. Opening the eyes occasionally to voice. Otherwise not following commands. Pupils are rounds and are about 3mm bilaterally and sluggishly reactive to light. Pupils are midline and no gaze deviation. +ve corneal reflex bilaterally. +Positive gag and cough reflex. No facial weakness. Motor: Strength unable to assess because of patient's condition. No spontaneous movement noted. Sensation: Could not be assessed. Reflexes: 1+ throughout. Plantars are mute bilaterally. - Labs CBC & Chem 7: 07/16/20 04:46 07/16/20 04:46 Labs: Abnormal Lab Results - Last 24 Hours (Table) 07/15/20 07/15/20 07/15/20 Range/Units 11:20 13:26 17:32 WBC (3.8-10.6) k/uL Neutrophils # (1.3-7.7) k/uL Neutrophils # (Manual) 32.70 H (1.3-7.7) k/uL Lymphocytes # (Manual) 8.30 H (1.0-4.8) k/uL Basophils # (Manual) 0.46 H (0-0.2) k/uL Metamyelocytes # (Man) 3.23 H (0) k/uL Myelocytes # (Manual) 0.92 H (0) k/uL ABG pH 7.22 L (7.35-7.45) ABG pCO2 (35-45) mmHg ABG pO2 >400 H (83-108) mmHg ABG HCO3 18 L (21-25) mmol/L ABG O2 Saturation 100.0 H (94-97) % Sodium (137-145) mmol/L Creatinine (0.66-1.25) mg/dL Glucose (74-99) mg/dL POC Glucose (mg/dL) 124 H (75-99) mg/dL Phosphorus (2.5-4.5) mg/dL 07/15/20 07/16/20 07/16/20 Range/Units 19:01 04:43 04:46 WBC (3.8-10.6) k/uL Neutrophils # (1.3-7.7) k/uL Neutrophils # (Manual) (1.3-7.7) k/uL Lymphocytes # (Manual) (1.0-4.8) k/uL Basophils # (Manual) (0-0.2) k/uL Metamyelocytes # (Man) (0) k/uL Myelocytes # (Manual) (0) k/uL ABG pH (7.35-7.45) ABG pCO2 34 L (35-45) mmHg ABG pO2 132 H 129 H (83-108) mmHg ABG HCO3 20 L (21-25) mmol/L ABG O2 Saturation 98.2 H 99.4 H (94-97) % Sodium 136 L (137-145) mmol/L Creatinine 1.37 H (0.66-1.25) mg/dL Glucose 120 H (74-99) mg/dL POC Glucose (mg/dL) (75-99) mg/dL Phosphorus 4.7 H (2.5-4.5) mg/dL 07/16/20 07/16/20 Range/Units 04:46 08:09 WBC 22.0 H (3.8-10.6) k/uL Neutrophils # 18.8 H (1.3-7.7) k/uL Neutrophils # (Manual) (1.3-7.7) k/uL Lymphocytes # (Manual) (1.0-4.8) k/uL Basophils # (Manual) (0-0.2) k/uL Metamyelocytes # (Man) (0) k/uL Myelocytes # (Manual) (0) k/uL ABG pH (7.35-7.45) ABG pCO2 (35-45) mmHg ABG pO2 (83-108) mmHg ABG HCO3 (21-25) mmol/L ABG O2 Saturation (94-97) % Sodium (137-145) mmol/L Creatinine (0.66-1.25) mg/dL Glucose (74-99) mg/dL POC Glucose (mg/dL) 107 H (75-99) mg/dL Phosphorus (2.5-4.5) mg/dL Microbiology - Last 24 Hours (Table) 07/15/20 23:00 Urine Culture - Preliminary Urine,Catheterized Assessment and Plan Assessment: This is a 54 year-old gentleman with history of pulmonary fibrosis who presented to the emergency department on 07/15/2020 because of cardiac arrest at home lasting 20 minutes. CPR was started and he was in V-fib and received shocked by EMS. As result he was intubated and on ventilaror. EKG showed STEMI Encephalopathy the due primarily anoxic brain injury from his cardiac arrest and elevated LFT, ALMAZ and current sedation (on Propofol) and received IV sedation during PCI. Cardiac arrest lasting 20 minutes STEMI status post PCI Elevated troponin due to above Acute hypoxic respiratory failure requiring mechanical ventilation Acute kidney injury Elevated liver function tests due to above (like as shock to liver) History of pulmonary fibrosis Plan: CT of the head: No acute intracranial abnormality. I personally reviewed it in the felt maybe there's very subtle loss of vega-white matter differentiation otherwise there is no acute ischemia or any inflammation or hemorrhages seen on the CT of the head that. I'll get an EEG for tomorrow (07/17/2020). All loss start the patient on any antiepileptic drug unless there is epileptiform discharges or seizure seen on EEG. I cannot assess the patient's cognitive condition at this moment since too early . Cardiology is on board. Patient is currently on aspirin 81 mg 's well as the Berlant 90 mg twice a day started by cardiology. I'll defer the medical managements and the respiratory management to the primary team/ICU team. The plan was discussed with the patient ICU nurse. Will continue to follow. Jose Villa M.D. Neuro-hospitalist Time with Patient: Greater than 30
--- NOTE | 2020-07-16 13:16 | P.PN ---
Subjective Progress Note Date: 07/16/20 Principal diagnosis: Cardiac arrest This is a 54-year-old male patient with known history of pulmonary fibrosis and apparently is on the transplant list at the [facility]. He was supposed to have a pulmonary function tests done today however he was not feeling well. He was complaining of indigestion and developed worsening shortness of breath and his heart rate was 44. Before the was able to call EMS he collapsed at home. He was found to be in ventricular fibrillation and was shocked twice by the fire department. Upon arrival by EMS he was still in ventricular fibrillation had 4 more shocks 3 of epinephrine and bolused with amiodarone. He did develop return of spontaneous circulation and brought here to the emergency room. EKG revealed ST segment elevation in the lateral leads and the patient was subsequently taken emergently to the [facility]. He had undergone stenting to the mid LAD lesion that was 90% stenosed. He remained intubated on mechanical ventilator and return to the intensive care unit where he is seen today in consultation. Computed tomography scan of the brain revealed no acute intracranial abnormality. Current vent settings are assist control at a rate of 18, tidal volume 450, FiO2 40% and a PEEP of 5 and arterial blood gases on 100% FiO2 revealed a pO2 greater than 400, pCO2 43 and a pH of 7.22. White count 46. Hemoglobin 16.3. Platelets 385. Sodium 137. Potassium 4.2. Creatinine 1.53. Glucose 288. AST 225. ALT 114. Troponin 2.63. Echocardiogram pending. Currently on propofol at 30 mcg/kg/m. Heparin drip. He was initiated on Brilinta. Patient was reevaluated today on 07/16/20, patient remains in the ICU, intubated and mechanically ventilated. He is on assist control rate of 18 tidal volume is 450 FiO2 is 40% and PEEP of 5 ABG showed a pO2 of 129 pCO2 of 34 pH of 7.40. Patient is presently on propofol at 10 mcg/kg/m. Chest x-ray showed interstitial lung disease, cannot rule out underlying congestive heart failure, however I did recommend one dose of Lasix 40 mg IV push 1. Patient is not responsive to any stimuli, opens eyes only there is downward gaze deviation. Breathing over the ventilator set rate all labs were reviewed chest x-ray was also reviewed and the patient will be started on enteral feeding. Objective - Vital Signs Vital signs: Vital Signs Temp 98.4 F 07/16/20 08:00 Pulse 91 07/16/20 11:00 Resp 11 L 07/16/20 11:00 BP 106/72 07/16/20 11:00 Pulse Ox 97 07/16/20 11:00 Intake & Output 07/15/20 07/16/20 07/16/20 18:59 06:59 18:59 Intake Total 931.109 5563.597 375 Output Total 410 420 640 Balance 990.685 4166.597 -265 Weight 113.398 kg Intake: IV 745.7 1400 375 NS @ 75 225 900 375 Sodium Chloride 0.9% 500 500 ml 500 ml @ 999 mls/hr IV .Q31M [facility] Rx#:[id number] Intake, IV Titration 102.834 229.597 Amount Tirofiban 12.5MG-250Ml Ns 90.7 250 ml @ 0 mls/hr IV . [facility] Rx#: [id number] propofoL 1,000 mg In 12.134 229.597 Empty Bag 1 bag @ Titrate IV .Q0M [facility] Rx#: [id number] Oral 150 Output: Urine 410 420 640 Other: Voiding Method Indwelling Catheter Indwelling Catheter Indwelling Catheter - Exam GENERAL EXAM: Intubated, sedated 54-year-old gentleman. HEAD: Normocephalic. EYES: Pupils are 3 mm, sluggishly reactive to light. NOSE: Clear with pink turbinates. THROAT: Oral endotracheal and gastric tube secured in place. No erythema or exudates. NECK: No masses, no JVD. CHEST: No chest wall deformity. LUNGS: Equal air entry with coarse crackles in the bilateral posterior bases. CVS: S1 and S2 normal with no audible murmur, regular rhythm. ABDOMEN: No hepatosplenomegaly, normal bowel sounds, no guarding or rigidity. SPINE: No scoliosis or deformity SKIN: No rashes CENTRAL NERVOUS SYSTEM: Limited mostly because of sedation, patient has a [place] Coma Scale score of 3 opens eyes intermittently. Not following any commands. Pupils are sluggishly reactive. Positive brainstem reflexes. EXTREMITIES: There is no peripheral edema. No clubbing, no cyanosis. Peripheral pulses are intact. - Labs CBC & Chem 7: 07/16/20 04:46 11/26/20 04:46 Labs: Abnormal Lab Results - Last 24 Hours (Table) 07/15/20 07/15/20 07/15/20 Range/Units 13:26 17:32 19:01 WBC (3.8-10.6) k/uL Neutrophils # (1.3-7.7) k/uL ABG pH 7.22 L (7.35-7.45) ABG pCO2 (35-45) mmHg ABG pO2 >400 H 132 H (83-108) mmHg ABG HCO3 18 L 20 L (21-25) mmol/L ABG O2 Saturation 100.0 H 98.2 H (94-97) % Sodium (137-145) mmol/L Creatinine (0.66-1.25) mg/dL Glucose (74-99) mg/dL POC Glucose (mg/dL) 124 H (75-99) mg/dL Phosphorus (2.5-4.5) mg/dL 07/16/20 07/16/20 07/16/20 Range/Units 04:43 04:46 04:46 WBC 22.0 H (3.8-10.6) k/uL Neutrophils # 18.8 H (1.3-7.7) k/uL ABG pH (7.35-7.45) ABG pCO2 34 L (35-45) mmHg ABG pO2 129 H (83-108) mmHg ABG HCO3 (21-25) mmol/L ABG O2 Saturation 99.4 H (94-97) % Sodium 136 L (137-145) mmol/L Creatinine 1.37 H (0.66-1.25) mg/dL Glucose 120 H (74-99) mg/dL POC Glucose (mg/dL) (75-99) mg/dL Phosphorus 4.7 H (2.5-4.5) mg/dL 07/16/20 Range/Units 08:09 WBC (3.8-10.6) k/uL Neutrophils # (1.3-7.7) k/uL ABG pH (7.35-7.45) ABG pCO2 (35-45) mmHg ABG pO2 (83-108) mmHg ABG HCO3 (21-25) mmol/L ABG O2 Saturation (94-97) % Sodium (137-145) mmol/L Creatinine (0.66-1.25) mg/dL Glucose (74-99) mg/dL POC Glucose (mg/dL) 107 H (75-99) mg/dL Phosphorus (2.5-4.5) mg/dL Microbiology - Last 24 Hours (Table) 07/15/20 23:00 Urine Culture - Preliminary Urine,Catheterized Assessment and Plan Assessment: Impression: Cardiopulmonary arrest secondary to acute ST elevation myocardial infarction, prolonged downtime/CPR including several defibrillations until the patient had return of spontaneous circulation. Suspect anoxic brain injury and anoxic metabolic encephalopathy Coronary artery disease with 90% occlusion of mid LAD, status post stent placement. Acute hypoxic respiratory failure secondary to cardiac arrest requiring intubation and mechanical ventilation. History of severe idiopathic pulmonary fibrosis/UIP supposedly the patient is on the list for lung transplant at the [facility] admission. History of chronic tobacco dependence. Recommendation: Continue ventilatory support. Trial of diuresis, chest x-ray is not clear whether this is all fibrosis or could be a component of congestive heart failure, cannot tell, uncertain. Continue the same ventilatory settings. Enteral feeding via nasogastric tube. Continue to monitor daily neurological status with neurology. Depending on his neurological status or improvement, CODE STATUS and possibly comfort care measures may have to be discussed with the family in the next 24-48 hours. Again prognosis is extremely poor and guarded. Critical care time is 33 minutes Time with Patient: Greater than 30
[2020-07-16 17:10] LABS: Glucose,Whole Blood 94 mg/dL (75-99)
[2020-07-17 00:44] LABS: Glucose,Whole Blood 112 mg/dL (75-99)
[2020-07-17 05:32] LABS: Basophils % (A) 0 %; Eosinophils # (A) 0.2 k/uL (0-0.7); Eosinophils % (A) 1 %; HGB 14.2 gm/dL (13.0-17.5); Lymphocytes # (A) 1.9 k/uL (1.0-4.8); Lymphocytes % (A) 10 %; MCH 31.4 pg (25.0-35.0); MCHC 33.7 g/dL (31.0-37.0); MCV 93.1 fL (80.0-100.0); Monocytes # (A) 0.9 k/uL (0-1.0); Monocytes % (A) 4 %; Neutrophils # (A) 16.9 k/uL (1.3-7.7); Neutrophils % (A) 84 %; Platelet Count 278 k/uL (150-450); RBC 4.51 m/uL (4.30-5.90); RDW 13.5 % (11.5-15.5)
[2020-07-17 05:43] LABS: African American GFR (CKD) >90 (>60 ml/min/1.73 sqM); Anion Gap 3 mmol/L; Blood Urea Nitrogen 12 mg/dL (9-20); Calcium 8.7 mg/dL (8.4-10.2); Carbon Dioxide 28 mmol/L (22-30); Chloride 108 mmol/L (98-107); Glucose 114 mg/dL (74-99); Non-African American GFR(CKD) 88 (>60 ml/min/1.73 sqM); Potassium 4.1 mmol/L (3.5-5.1); Sodium 139 mmol/L (137-145)
[2020-07-17 06:34] LABS: Glucose,Whole Blood 108 mg/dL (75-99)
[2020-07-17 07:03] LABS: ABG Base Excess 2.6 mmol/L; ABG HCO3 27 mmol/L (21-25); ABG Oxygen Saturation 98.7 % (94-97); ABG PCO2 39 mmHg (35-45); ABG PH 7.45 (7.35-7.45); ABG PO2 161 mmHg (83-108); ABG TCO2 28 mmol/L (19-24); Allen Test Performed? Yes
--- NOTE | 2020-07-17 07:52 | XR ---
EXAMINATION TYPE: XR chest 1V DATE OF EXAM: 07/17/2020 COMPARISON: 07/16/2020 HISTORY: SOB, Follow Up FINDINGS: Indwelling tubes and catheters are unchanged. Diffuse bilateral patchy infiltrates appear unchanged. Stable appearance of the cardio-mediastinal structures at this time. IMPRESSION: 1. Stable portable chest. Clinical correlation and follow up until resolution is recommended.
[2020-07-17] MEDS: METOPROLOL TARTRATE 25 MG TAB PO SCH ×2 (08:07→20:07)
[2020-07-17] MEDS: CHLORHEXIDINE GLUCONATE 15 ML CUP MUCOUS MEM SCH ×2 (08:07→20:07)
[2020-07-17] MEDS: ASPIRIN 81 MG PO SCH (08:07)
[2020-07-17] MEDS: TICAGRELOR 90 MG TAB PO SCH ×2 (08:07→20:07)
[2020-07-17] MEDS: PANTOPRAZOLE 40 MG/10 ML VIAL IV SCH (08:07)
[2020-07-17] MEDS: FUROSEMIDE 10 MG/ML 4 ML VIAL IV SCH (08:07)
[2020-07-17] MEDS: HEPARIN SOD,PORK IN 0.45% NACL 25,000 UNIT in 0.45% NACL 1 250ML.BAG IV SCH (09:13)
--- NOTE | 2020-07-17 09:27 | P.PN ---
Subjective Progress Note Date: 07/17/20 The patient was seen at bedside and he remains to be intubated on ventilator. Per the nurse when the patient is off sedation (Propofol drip), he is not responding or following command. No seizure-like activity witnessed by the nurse. No gaze deviation. Overnight he was yawning. Sometimes he was biting on the tube so the sedation had to restarted. His Propofol drip was held for 30 minutes prior to arrival and he is not following commands. His white blood cells are trending down on presentation he had 46.1 and outs 20.0 likely to reactive from his myocardial infarction Objective - Vital Signs Vital signs: Vital Signs Temp 98.8 F 07/17/20 05:00 Pulse 89 07/17/20 06:00 Resp 23 07/17/20 06:00 BP 103/71 07/17/20 06:00 Pulse Ox 96 07/17/20 06:00 Intake & Output 07/16/20 07/17/20 07/17/20 18:59 06:59 18:59 Intake Total 1066.924 924.679 Output Total 1255 720 Balance -188.076 204.679 Weight 106 kg Intake: IV 900 825 NS @ 75 900 825 Intake, IV Titration 166.924 99.679 Amount propofoL 1,000 mg In 78.926 99.679 Empty Bag 1 bag @ Titrate IV .Q0M [facility] Rx#: [id number] propofoL 1,000 mg In 87.998 Empty Bag 1 bag @ Titrate IV .Q0M [facility] Rx#: [id number] Output: Gastric Drainage 250 Urine 1255 470 Other: Voiding Method Indwelling Catheter Indwelling Catheter - Exam GENERAL: The patient is intubated on ventilator and on IV Propofol drip--held for 30 minutes prior to arrival. HENT: Neck is supple. Left forehead has slight edema from fall. NEUROLOGICAL: Limited because of patient's condition Higher mental function: The patient is comatose. GCS 6 (E4, V1, M1). Eyes are open but not following commands or attempting to verbalize. Pupils are rounds and are about 3mm bilaterally and sluggishly reactive to light. Pupils are midline and no gaze deviation. +ve corneal reflex bilaterally. +Positive gag and cough reflex. No facial weakness. Motor: Strength unable to assess because of patient's condition. No spontaneous movement noted. Sensation: Could not be assessed. Reflexes: 1+ throughout. Plantars are mute bilaterally. - Labs CBC & Chem 7: 07/17/20 04:20 07/17/20 04:20 Labs: Abnormal Lab Results - Last 24 Hours (Table) 07/16/20 07/17/20 07/17/20 Range/Units 08:09 00:42 04:20 WBC 20.0 H (3.8-10.6) k/uL Neutrophils # 16.9 H (1.3-7.7) k/uL ABG pO2 (83-108) mmHg ABG HCO3 (21-25) mmol/L ABG Total CO2 (19-24) mmol/L ABG O2 Saturation (94-97) % Chloride (98-107) mmol/L Glucose (74-99) mg/dL POC Glucose (mg/dL) 107 H 112 H (75-99) mg/dL 07/17/20 07/17/20 07/17/20 Range/Units 04:20 06:33 07:00 WBC (3.8-10.6) k/uL Neutrophils # (1.3-7.7) k/uL ABG pO2 161 H (83-108) mmHg ABG HCO3 27 H (21-25) mmol/L ABG Total CO2 28 H (19-24) mmol/L ABG O2 Saturation 98.7 H (94-97) % Chloride 108 H (98-107) mmol/L Glucose 114 H (74-99) mg/dL POC Glucose (mg/dL) 108 H (75-99) mg/dL Microbiology - Last 24 Hours (Table) 07/15/20 23:00 Urine Culture - Final Urine,Catheterized Assessment and Plan Assessment: This is a 54 year-old gentleman with history of pulmonary fibrosis who presented to the emergency department on 07/15/2020 because of cardiac arrest at home lasting 20 minutes. CPR was started and he was in V-fib and received shocked by EMS. As result he was intubated and on ventilaror. EKG showed STEMI Anoxic brain injury due to cardiac arrest (unsure to what degree) Encephalopathy the due primarily anoxic brain injury from his cardiac arrest and elevated LFT, ALMAZ and current sedation (on Propofol) and received IV sedation during PCI. Cardiac arrest lasting 20 minutes STEMI status post PCI Elevated troponin due to above Leukocystosis--likely reactive Acute hypoxic respiratory failure requiring mechanical ventilation Acute kidney injury--resolved Elevated liver function tests due to above (like as shock to liver) History of pulmonary fibrosis Plan: CT of the head: No acute intracranial abnormality. I personally reviewed it in the felt maybe there's very subtle loss of vega-white matter differentiation otherwise there is no acute ischemia or any inflammation or hemorrhages seen on the CT of the head that. Pending EEG for today. I will not start the patient on any antiepileptic drug unless there is epileptiform discharges or seizure seen on EEG. I ordered repeat LFTs and I ordered ammonia level and TSH level. I will repeat CT head today. I cannot assess the patient expected cognitive recovery at this time as it is too soon to state. I think with time will have a better idea how patient does. Cardiology is on board. Patient is currently on aspirin 81 mg 's well as the Berlant 90 mg twice a day started by cardiology. I'll defer the medical managements and the respiratory management to the primary team/ICU team. I spoke with the patient's (Francisca) via phone and notified her of the patient condition and that I cannot state to what degree his anoxic brain injury and to what degree his recovery will be at this time. I told her within 1-2 weeks post cardiac arrest we will have a better understanding of his condition. The plan was discussed with the patient ICU team. There is no neurology coverage over the weekend. Please Perfect Serve me if any concerns. Jose Villa M.D. Neuro-hospitalist Time with Patient: Less than 30
[2020-07-17 11:09] LABS: Glucose,Whole Blood 110 mg/dL (75-99)
--- NOTE | 2020-07-17 11:52 | P.PN ---
Subjective Principal diagnosis: Cardiac arrest remains intubated on MV Objective - Vital Signs Vital signs: Vital Signs Temp 99.9 F H 07/17/20 08:00 Pulse 86 07/17/20 11:00 Resp 18 07/17/20 11:08 BP 106/71 07/17/20 11:00 Pulse Ox 97 07/17/20 11:00 Intake & Output 07/16/20 07/17/20 07/17/20 18:59 06:59 18:59 Intake Total 0021.307 1886.679 435.34 Output Total 1255 750 780 Balance -188.076 349.679 -344.66 Weight 106 kg Intake: IV 900 900 375 NS @ 75 900 900 375 Intake, IV Titration 166.924 199.679 0.34 Amount propofoL 1,000 mg In 78.926 199.679 0.34 Empty Bag 1 bag @ Titrate IV .Q0M [facility] Rx#: [id number] propofoL 1,000 mg In 87.998 Empty Bag 1 bag @ Titrate IV .Q0M [facility] Rx#: [id number] Other 60 Output: Gastric Drainage 250 Urine 1255 500 780 Other: Voiding Method Indwelling Catheter Indwelling Catheter Indwelling Catheter - Exam GENERAL: The patient is intubated on ventilator HENT: Neck is supple. cardiac : The heart rate is regular rate rhythm. No murmurs to auscultation. LUNG: Intubad and on Mechanical ventilaror.decreased bs ABDOMEN/GI: Bowel sounds present in all 4 quadrants. No tenderness to palpation throughout. NEUROLOGICAL: Limited since patient on sedation. - Labs CBC & Chem 7: 07/17/20 04:20 07/17/20 04:20 Labs: Abnormal Lab Results - Last 24 Hours (Table) 07/17/20 07/17/20 07/17/20 Range/Units 00:42 04:20 04:20 WBC 20.0 H (3.8-10.6) k/uL Neutrophils # 16.9 H (1.3-7.7) k/uL ABG pO2 (83-108) mmHg ABG HCO3 (21-25) mmol/L ABG Total CO2 (19-24) mmol/L ABG O2 Saturation (94-97) % Chloride 108 H (98-107) mmol/L Glucose 114 H (74-99) mg/dL POC Glucose (mg/dL) 112 H (75-99) mg/dL AST (17-59) U/L ALT (4-49) U/L 07/17/20 07/17/20 07/17/20 Range/Units 06:33 07:00 08:39 WBC (3.8-10.6) k/uL Neutrophils # (1.3-7.7) k/uL ABG pO2 161 H (83-108) mmHg ABG HCO3 27 H (21-25) mmol/L ABG Total CO2 28 H (19-24) mmol/L ABG O2 Saturation 98.7 H (94-97) % Chloride (98-107) mmol/L Glucose (74-99) mg/dL POC Glucose (mg/dL) 108 H (75-99) mg/dL AST 172 H (17-59) U/L ALT 97 H (4-49) U/L 07/17/20 Range/Units 11:08 WBC (3.8-10.6) k/uL Neutrophils # (1.3-7.7) k/uL ABG pO2 (83-108) mmHg ABG HCO3 (21-25) mmol/L ABG Total CO2 (19-24) mmol/L ABG O2 Saturation (94-97) % Chloride (98-107) mmol/L Glucose (74-99) mg/dL POC Glucose (mg/dL) 110 H (75-99) mg/dL AST (17-59) U/L ALT (4-49) U/L Microbiology - Last 24 Hours (Table) 07/15/20 23:00 Urine Culture - Final Urine,Catheterized Assessment and Plan Plan: 1. Ventricular Fibrillation related Cardiac Arrest 2. Marcus-lateral STEMI, successful revascularization 3. Pulmonary Fibrosis on nintedanib 4. Encephalopathy the due primarily anoxic brain injury from his cardiac arrest 5. Leukocytosis down to 20,000 6. ALMAZ 2/2 decreased perfusion : scr 1.3 , resolved 54 year old man with pulmonary fibrosis on nintedanib presented with cardiac arrest related to v fib secondary to marcus-lateral STEMI, who underwent successful revascularization Plan: - ICU consult, Neuro consult, Cardiology consult, input appreciated - on metoprolol , aspirin, Lasix and heparin. Continue supportive care Continue to check neurological status
--- NOTE | 2020-07-17 11:58 | P.PN ---
Subjective Progress Note Date: 07/17/20 Principal diagnosis: Cardiac arrest and DC This is a 54-year-old gentleman with history of pulmonary fibrosis who was being evaluated at [facility] for possible lung transplant. He was apparently scheduled to have a cardiac catheterization next week. He however was admitted with chest pain and cardiac arrest with resuscitation that was about 20 minutes long. Are Patient revealed critical lesion in the mid LAD and total occlusion of the distal LAD. Patient had stent placement of the mid LAD. Patient has been maintaining sinus rhythm. Patient is intubated. Apparently patient has brain stem reflexes. Still has signs of anoxic encephalopathy. Patient is having good urinary output. Patient is on antiplatelet agents and beta blockers being given through the NG tube. Vital signs are stable. We'll continue current medical therapy. Pulmonary is also following along with neurology. It. Prognosis is guarded at this time. 07/17/2020: This patient with pulmonary fibrosis who was admitted with cardiac arrest seemed to be hemodynamically stable. His mental status hasn't shown much improvement. He is off sedation so far no clear signs of improvement in his mental status. No arrhythmias noted. Vital signs are otherwise stable. Chest x-rays clear. Continue his Supportive care. Continue current medical therapy. Neuro follow-up and recommendations. Prognosis seemed to be poor at this time Objective - Vital Signs Vital signs: Vital Signs Temp 99.9 F H 07/17/20 08:00 Pulse 86 07/17/20 11:00 Resp 18 07/17/20 11:08 BP 106/71 07/17/20 11:00 Pulse Ox 97 07/17/20 11:00 Intake & Output 07/16/20 07/17/20 07/17/20 18:59 06:59 18:59 Intake Total 1039.699 2023.679 510.34 Output Total 1255 750 930 Balance -188.076 349.679 -419.66 Weight 106 kg Intake: IV 900 900 450 NS @ 75 900 900 450 Intake, IV Titration 166.924 199.679 0.34 Amount propofoL 1,000 mg In 78.926 199.679 0.34 Empty Bag 1 bag @ Titrate IV .Q0M [facility] Rx#: [id number] propofoL 1,000 mg In 87.998 Empty Bag 1 bag @ Titrate IV .Q0M [facility] Rx#: [id number] Other 60 Output: Gastric Drainage 250 Urine 1255 500 930 Other: Voiding Method Indwelling Catheter Indwelling Catheter Indwelling Catheter - Exam GENERAL EXAM: Patient is intubated and sedated HEENT: Normocephalic. Normal reaction of pupils, equal size, normal range of extraocular motion. No erythema or exudates in the throat. NECK: No masses, no nuchal rigidity. CHEST: No chest wall deformity. LUNGS: Diminished air entry HEART: S1 and S2 normal . ABDOMEN: Soft SKIN: No rashes CENTRAL NERVOUS SYSTEM: As per neurology. Patient has brain stem reflexes EXTREMITIES: No cyanosis, clubbing or edema. - Labs CBC & Chem 7: 07/17/20 04:20 07/17/20 04:20 Labs: Abnormal Lab Results - Last 24 Hours (Table) 07/17/20 07/17/20 07/17/20 Range/Units 00:42 04:20 04:20 WBC 20.0 H (3.8-10.6) k/uL Neutrophils # 16.9 H (1.3-7.7) k/uL ABG pO2 (83-108) mmHg ABG HCO3 (21-25) mmol/L ABG Total CO2 (19-24) mmol/L ABG O2 Saturation (94-97) % Chloride 108 H (98-107) mmol/L Glucose 114 H (74-99) mg/dL POC Glucose (mg/dL) 112 H (75-99) mg/dL AST (17-59) U/L ALT (4-49) U/L 07/17/20 07/17/20 07/17/20 Range/Units 06:33 07:00 08:39 WBC (3.8-10.6) k/uL Neutrophils # (1.3-7.7) k/uL ABG pO2 161 H (83-108) mmHg ABG HCO3 27 H (21-25) mmol/L ABG Total CO2 28 H (19-24) mmol/L ABG O2 Saturation 98.7 H (94-97) % Chloride (98-107) mmol/L Glucose (74-99) mg/dL POC Glucose (mg/dL) 108 H (75-99) mg/dL AST 172 H (17-59) U/L ALT 97 H (4-49) U/L 07/17/20 Range/Units 11:08 WBC (3.8-10.6) k/uL Neutrophils # (1.3-7.7) k/uL ABG pO2 (83-108) mmHg ABG HCO3 (21-25) mmol/L ABG Total CO2 (19-24) mmol/L ABG O2 Saturation (94-97) % Chloride (98-107) mmol/L Glucose (74-99) mg/dL POC Glucose (mg/dL) 110 H (75-99) mg/dL AST (17-59) U/L ALT (4-49) U/L Microbiology - Last 24 Hours (Table) 07/15/20 23:00 Urine Culture - Final Urine,Catheterized Assessment and Plan (1) S/P coronary artery stent placement Current Visit: Yes Status: Acute Code(s): Z95.5 - PRESENCE OF CORONARY ANGIOPLASTY IMPLANT AND GRAFT SNOMED Code(s): 174385330 (2) Cardiac arrest Current Visit: Yes Status: Acute Code(s): I46.9 - CARDIAC ARREST, CAUSE UNSPECIFIED SNOMED Code(s): 957617443 (3) Hypoxic encephalopathy Current Visit: Yes Status: Acute Code(s): G93.1 - ANOXIC BRAIN DAMAGE, NOT ELSEWHERE CLASSIFIED SNOMED Code(s): 144828510 (4) History of pulmonary fibrosis Current Visit: Yes Status: Acute Code(s): Z87.09 - PERSONAL HISTORY OF OTHER DISEASES OF THE RESPIRATORY SYSTEM SNOMED Code(s): 756121238 Plan: Hemodynamically stable. Neurologically no significant improvement. Continue current measures and supportive care.
--- NOTE | 2020-07-17 14:58 | EEG ---
ELECTROENCEPHALOGRAM REPORT EEG REPORT: DATE OF SERVICE: 07/17/2020 CLINICAL HISTORY: This is a 54-year-old gentleman with reported history of pulmonary hypertension that presented to the Emergency Department on 07/15/2020 after cardiac arrest lasting for 20 minutes. The patient continues to have altered mental status. This video EEG was obtained to evaluate for seizure and epileptiform activity. RELEVANT MEDICATION: Patient is on IV propofol drip and was held for 30 minutes prior to the EEG procedure. EEG TYPE: A routine 21 channel EEG was performed with video using the 10-20 electrode placement system. DESCRIPTION: Wakefulness is only obtained. There is no posterior dominant rhythm seen over bilateral hemisphere. The background consists of low voltage 7-8 hertz non rhythmic, over the bilateral hemisphere. There was no physiological stage 2 sleep. There are excessive fast activity seen over bilateral hemisphere. INTERICTAL AND ICTAL: None ACTIVATION PROCEDURE: Photic stimulation was performed and no photic drive was seen over bilateral hemispheres. Hyperventilation was not performed. CLINICAL INTERPRETATION: This is an abnormal routine EEG. The background slowing is suggestive of mild to moderate encephalopathy. There are no focal slowing, epileptiform discharges or seizure seen during the study. The excessive fast activity seen is likely due to medication effect. Clinical correlation is recommended. MMODL / IJN: [id number] / MATTHEW
--- NOTE | 2020-07-17 15:01 | P.PN ---
Subjective Progress Note Date: 07/17/20 Principal diagnosis: Cardiac arrest This is a 54-year-old male patient with known history of pulmonary fibrosis and apparently is on the transplant list at the [facility]. He was supposed to have a pulmonary function tests done today however he was not feeling well. He was complaining of indigestion and developed worsening shortness of breath and his heart rate was 44. Before the was able to call EMS he collapsed at home. He was found to be in ventricular fibrillation and was shocked twice by the fire department. Upon arrival by EMS he was still in ventricular fibrillation had 4 more shocks 3 of epinephrine and bolused with amiodarone. He did develop return of spontaneous circulation and brought here to the emergency room. EKG revealed ST segment elevation in the lateral leads and the patient was subsequently taken emergently to the [facility]. He had undergone stenting to the mid LAD lesion that was 90% stenosed. He remained intubated on mechanical ventilator and return to the intensive care unit where he is seen today in consultation. Computed tomography scan of the brain revealed no acute intracranial abnormality. Current vent settings are assist control at a rate of 18, tidal volume 450, FiO2 40% and a PEEP of 5 and arterial blood gases on 100% FiO2 revealed a pO2 greater than 400, pCO2 43 and a pH of 7.22. White count 46. Hemoglobin 16.3. Platelets 385. Sodium 137. Potassium 4.2. Creatinine 1.53. Glucose 288. AST 225. ALT 114. Troponin 2.63. Echocardiogram pending. Currently on propofol at 30 mcg/kg/m. Heparin drip. He was initiated on Brilinta. Patient was reevaluated today on 07/16/20, patient remains in the ICU, intubated and mechanically ventilated. He is on assist control rate of 18 tidal volume is 450 FiO2 is 40% and PEEP of 5 ABG showed a pO2 of 129 pCO2 of 34 pH of 7.40. Patient is presently on propofol at 10 mcg/kg/m. Chest x-ray showed interstitial lung disease, cannot rule out underlying congestive heart failure, however I did recommend one dose of Lasix 40 mg IV push 1. Patient is not responsive to any stimuli, opens eyes only there is downward gaze deviation. Breathing over the ventilator set rate all labs were reviewed chest x-ray was also reviewed and the patient will be started on enteral feeding. Patient was reevaluated today on 07/17/20, remains in the ICU, intubated, and mechanically ventilated. His ventilator settings are assist control rate of 18 tidal volume is 450 FiO2 is 40% and PEEP is 5. ABG showed a pO2 of 161 pCO2 of 39 pH of 7.45. Patient was on minimal dose of propofol at 30 mcg/kg/m, however I recommended that we hold propofol this morning, and would like to assess mental status again off propofol. Patient is also scheduled to have EGD this mo rning. Patient is not responding to any commands, no gaze deviation noted today. At times noted by nurses that he was biting on the endotracheal tube had to be placed on small amount of sedation. Chest x-ray continues to show diffuse interstitial lung disease consistent with pulmonary fibrosis. His WBC count today is 20 hemoglobin is 14.2 hematocrit is 42. Electrolytes are normal, renal profile is normal. Liver enzymes, are borderline elevated/AST and ALP. Ammonia level is normal. Objective - Vital Signs Vital signs: Vital Signs Temp 98.6 F 07/17/20 12:00 Pulse 92 07/17/20 13:00 Resp 28 H 07/17/20 13:00 BP 112/76 07/17/20 13:00 Pulse Ox 94 L 07/17/20 13:00 Intake & Output 07/16/20 07/17/20 07/17/20 18:59 06:59 18:59 Intake Total 1349.412 6460.679 737.778 Output Total 3531 671 5858 Balance -188.076 349.679 -287.222 Weight 106 kg Intake: IV 900 900 675 NS @ 75 900 900 675 Intake, IV Titration 166.924 199.679 2.778 Amount propofoL 1,000 mg In 78.926 199.679 2.778 Empty Bag 1 bag @ Titrate IV .Q0M [facility] Rx#: [id number] propofoL 1,000 mg In 87.998 Empty Bag 1 bag @ Titrate IV .Q0M [facility] Rx#: [id number] Other 60 Output: Gastric Drainage 250 Urine 7548 046 2265 Other: Voiding Method Indwelling Catheter Indwelling Catheter Indwelling Catheter - Exam GENERAL EXAM: Intubated, sedated 54-year-old gentleman. HEAD: Normocephalic. EYES: Pupils are 3 mm, sluggishly reactive to light. NOSE: Clear with pink turbinates. THROAT: Oral endotracheal and gastric tube secured in place. No erythema or exudates. NECK: No masses, no JVD. CHEST: No chest wall deformity. LUNGS: Equal air entry with coarse crackles in the bilateral posterior bases. CVS: S1 and S2 normal with no audible murmur, regular rhythm. ABDOMEN: No hepatosplenomegaly, normal bowel sounds, no guarding or rigidity. SPINE: No scoliosis or deformity SKIN: No rashes CENTRAL NERVOUS SYSTEM: Sedated, opens eyes intermittently. Not following any commands. Pupils are sluggishly reactive. Positive brainstem reflexes. EXTREMITIES: There is no peripheral edema. No clubbing, no cyanosis. Peripheral pulses are intact. - Labs CBC & Chem 7: 07/17/20 04:20 07/17/20 04:20 Labs: Abnormal Lab Results - Last 24 Hours (Table) 07/17/20 07/17/20 07/17/20 Range/Units 00:42 04:20 04:20 WBC 20.0 H (3.8-10.6) k/uL Neutrophils # 16.9 H (1.3-7.7) k/uL ABG pO2 (83-108) mmHg ABG HCO3 (21-25) mmol/L ABG Total CO2 (19-24) mmol/L ABG O2 Saturation (94-97) % Chloride 108 H (98-107) mmol/L Glucose 114 H (74-99) mg/dL POC Glucose (mg/dL) 112 H (75-99) mg/dL AST (17-59) U/L ALT (4-49) U/L 07/17/20 07/17/20 07/17/20 Range/Units 06:33 07:00 08:39 WBC (3.8-10.6) k/uL Neutrophils # (1.3-7.7) k/uL ABG pO2 161 H (83-108) mmHg ABG HCO3 27 H (21-25) mmol/L ABG Total CO2 28 H (19-24) mmol/L ABG O2 Saturation 98.7 H (94-97) % Chloride (98-107) mmol/L Glucose (74-99) mg/dL POC Glucose (mg/dL) 108 H (75-99) mg/dL AST 172 H (17-59) U/L ALT 97 H (4-49) U/L 07/17/20 Range/Units 11:08 WBC (3.8-10.6) k/uL Neutrophils # (1.3-7.7) k/uL ABG pO2 (83-108) mmHg ABG HCO3 (21-25) mmol/L ABG Total CO2 (19-24) mmol/L ABG O2 Saturation (94-97) % Chloride (98-107) mmol/L Glucose (74-99) mg/dL POC Glucose (mg/dL) 110 H (75-99) mg/dL AST (17-59) U/L ALT (4-49) U/L Microbiology - Last 24 Hours (Table) 07/15/20 23:00 Urine Culture - Final Urine,Catheterized Assessment and Plan Assessment: Impression: Cardiopulmonary arrest secondary to acute ST elevation myocardial infarction, prolonged downtime/CPR including several defibrillations until the patient had return of spontaneous circulation. Suspect anoxic brain injury and anoxic metabolic encephalopathy Coronary artery disease with 90% occlusion of mid LAD, status post stent placement. Acute hypoxic respiratory failure secondary to cardiac arrest requiring intubation and mechanical ventilation. History of severe idiopathic pulmonary fibrosis/UIP supposedly the patient is on the list for lung transplant at the [facility] admission. History of chronic tobacco dependence. Recommendation: Continue ventilatory support. Nutritional support. Continue the same ventilatory settings. Hemodynamic support if necessary. Enteral feeding via nasogastric tube. Continue to monitor daily neurological status Discussed his condition with neurology on the case today. Uncertain at this point whether the patient would have any reversible neurological function. Depending on his neurological status or improvement, further decisions will be made. Critical care time is greater than 30 minutes. Time with Patient: Greater than 30
[2020-07-17 17:07] LABS: Glucose,Whole Blood 91 mg/dL (75-99)
--- NOTE | 2020-07-17 18:26 | CT ---
EXAMINATION TYPE: CT brain wo con DATE OF EXAM: 07/17/2020 COMPARISON: 03/14/2020 HISTORY: ams CT DLP: 1172.4 mGycm Automated exposure control for dose reduction was used. Ventricles have normal size. There is no mass effect nor midline shift. There is no sign of intracran ial hemorrhage. The calvarium is intact. There appears to be some effacement of the sulci in both cer ebral hemispheres. There is slight loss of the normal vega-white matter differential density. The rem ainder of exam is unremarkable. IMPRESSION: There appears to be some diffuse cerebral edema which is a change compared to recent exam.
[2020-07-17] MEDS: ACETAMINOPHEN TAB 325 MG TAB PO PRN (22:09)
[2020-07-17 23:21] LABS: Glucose,Whole Blood 101 mg/dL (75-99)
[2020-07-18 04:35] LABS: Basophils # (A) 0.1 k/uL (0-0.2); Basophils % (A) 0 %; Eosinophils # (A) 0.3 k/uL (0-0.7); Eosinophils % (A) 2 %; HCT 41.9 % (39.0-53.0); HGB 13.1 gm/dL (13.0-17.5); Lymphocytes # (A) 2.4 k/uL (1.0-4.8); Lymphocytes % (A) 15 %; MCH 29.7 pg (25.0-35.0); MCHC 31.3 g/dL (31.0-37.0); MCV 94.7 fL (80.0-100.0); Mean Platelet Volume 7.1; Monocytes # (A) 0.8 k/uL (0-1.0); Monocytes % (A) 5 %; Neutrophils # (A) 12.2 k/uL (1.3-7.7); Neutrophils % (A) 77 %; Platelet Count 255 k/uL (150-450); RBC 4.42 m/uL (4.30-5.90); RDW 13.9 % (11.5-15.5)
[2020-07-18 04:51] LABS: ALT 70 U/L (4-49); AST 121 U/L (17-59); African American GFR (CKD) >90 (>60 ml/min/1.73 sqM); Alkaline Phosphatase 85 U/L (38-126); Anion Gap 0 mmol/L; Blood Urea Nitrogen 15 mg/dL (9-20); Calcium 8.9 mg/dL (8.4-10.2); Carbon Dioxide 32 mmol/L (22-30); Chloride 105 mmol/L (98-107); Glucose 107 mg/dL (74-99); Non-African American GFR(CKD) 81 (>60 ml/min/1.73 sqM); Sodium 137 mmol/L (137-145); Total Bilirubin 1.7 mg/dL (0.2-1.3)
[2020-07-18 04:58] LABS: ABG Base Excess 3.7 mmol/L; ABG HCO3 28 mmol/L (21-25); ABG Oxygen Saturation 97.3 % (94-97); ABG PCO2 41 mmHg (35-45); ABG PH 7.44 (7.35-7.45); ABG PO2 97 mmHg (83-108); ABG TCO2 29 mmol/L (19-24); Allen Test Performed? Yes
[2020-07-18 06:07] LABS: Glucose,Whole Blood 90 mg/dL (75-99)
--- NOTE | 2020-07-18 07:07 | XR ---
EXAMINATION TYPE: XR chest 1V DATE OF EXAM: 07/18/2020 CLINICAL HISTORY: Difficulty breathing progress study. TECHNIQUE: Single AP portable semiupright view of the chest is obtained. COMPARISON: Chest x-ray from one day earlier and older studies FINDINGS: Stable endotracheal and orogastric tubes. Reticular increased markings bilaterally remain present. Cardiac silhouette size stable and mildly en larged. Multilevel spurring in the thoracic spine is redemonstrated. No pleural effusion or pneumotho rax noted. IMPRESSION: Diffuse bilateral edema and/or infiltrates suspected. Cannot exclude underlying chronic f ibrotic change without older comparison x-ray. No significant change from one day earlier.
[2020-07-18] MEDS ORDERED: MANNITOL 20% PMX 500 ML in SALINE 1 500ML.BAG IV ONE ×2 (07:30→14:00)
--- NOTE | 2020-07-18 07:48 | P.PN ---
Progress Note - Text Progress Note Date: 07/18/20 CT head on 07/17/20 that was done late during the day: was reported as there appears to be some diffuse cerebral edema which is a change compared to recent exam (07/15/20). I personally reviewed the CT head and felt there is loss of vega and white matter differentiation throughout as result of cerebral edema. The lateral ventricles and third ventricles seem somewhat constricted while the 4th ventricle is open. As of result of cerebral edema from cardiac arrest, I ordered Mannitol 1g/kg nahid ding dose STAT dose and for another repeat in 6 hours. I also started the patient on 3% hyertonic 40cc/hour. Na goal is 145-155. Na Q4-6 hour checks Osmolality Q4-6 hour checks. The Plan was discussed with the patient's nurse. Please Perfect Serve me if needed.
[2020-07-18] MEDS ORDERED: SODIUM CHLORIDE 3%(HYPERTONIC) 500 ML IV ONE (08:00)
[2020-07-18] MEDS ORDERED: SODIUM CHLORIDE 0.9% 1,000 ML IV ONE (08:09)
--- NOTE | 2020-07-18 09:09 | P.PN ---
Subjective Progress Note Date: 07/18/20 Principal diagnosis: Cardiac arrest and [place] This is a 54-year-old gentleman with history of pulmonary fibrosis who was being evaluated at [facility] for possible lung transplant. He was apparently scheduled to have a cardiac catheterization next week. He however was admitted with chest pain and cardiac arrest with resuscitation that was about 20 minutes long. Are Patient revealed critical lesion in the mid LAD and total occlusion of the distal LAD. Patient had stent placement of the mid LAD. Patient has been maintaining sinus rhythm. Patient is intubated. Apparently patient has brain stem reflexes. Still has signs of anoxic encephalopathy. Patient is having good urinary output. Patient is on antiplatelet agents and beta blockers being given through the NG tube. Vital signs are stable. We'll continue current medical therapy. Pulmonary is also following along with neurology. It. Prognosis is guarded at this time. 07/17/2020: This patient with pulmonary fibrosis who was admitted with cardiac arrest seemed to be hemodynamically stable. His mental status hasn't shown much improvement. He is off sedation so far no clear signs of improvement in his mental status. No arrhythmias noted. Vital signs are otherwise stable. Chest x-rays clear. Continue his Supportive care. Continue current medical therapy. Neuro follow-up and recommendations. Prognosis seemed to be poor at this time. 07/18/2020: This patient's mental status hasn't shown any improvement. Apparently, computed tomography scan showed edema of the brain. Patient is being treated with 3% normal saline. Chest x-ray shows diffuse infiltrates consistent with pulmonary fibrosis. Cardiac was patient remains stable and no arrhythmias noted. Patient is going to have an echocardiogram. Continue current medical therapy. Prognosis is guarded Objective - Vital Signs Vital signs: Vital Signs Temp 98.4 F 07/18/20 04:00 Pulse 80 07/18/20 07:00 Resp 21 07/18/20 07:00 BP 101/69 07/18/20 07:00 Pulse Ox 99 07/18/20 07:00 Intake & Output 07/17/20 07/18/20 07/18/20 18:59 06:59 18:59 Intake Total 1985.876 0361.718 100.122 Output Total 1600 360 30 Balance -497.032 719.718 70.122 Weight 101.3 kg Intake: IV 975 825 75 NS @ 75 975 825 75 Intake, IV Titration 67.968 254.718 25.122 Amount propofoL 1,000 mg In 67.968 254.718 25.122 Empty Bag 1 bag @ Titrate IV .Q0M [facility] Rx#: [id number] Other 60 Output: Urine 1600 360 30 Other: Voiding Method Indwelling Catheter Indwelling Catheter - Exam GENERAL EXAM: Patient is intubated and sedated HEENT: Normocephalic. Normal reaction of pupils, equal size, normal range of extraocular motion. No erythema or exudates in the throat. NECK: No masses, no nuchal rigidity. CHEST: No chest wall deformity. LUNGS: Diminished air entry HEART: S1 and S2 normal . ABDOMEN: Soft SKIN: No rashes CENTRAL NERVOUS SYSTEM: As per neurology. Patient has brain stem reflexes EXTREMITIES: No cyanosis, clubbing or edema. - Labs CBC & Chem 7: 07/18/20 04:05 07/18/20 04:05 Labs: Abnormal Lab Results - Last 24 Hours (Table) 07/17/20 07/17/20 07/17/20 Range/Units 08:39 11:08 23:20 WBC (3.8-10.6) k/uL Neutrophils # (1.3-7.7) k/uL ABG HCO3 (21-25) mmol/L ABG Total CO2 (19-24) mmol/L ABG O2 Saturation (94-97) % Carbon Dioxide (22-30) mmol/L Glucose (74-99) mg/dL POC Glucose (mg/dL) 110 H 101 H (75-99) mg/dL Total Bilirubin (0.2-1.3) mg/dL AST 172 H (17-59) U/L ALT 97 H (4-49) U/L Total Protein (6.3-8.2) g/dL Albumin (3.5-5.0) g/dL 07/18/20 07/18/20 07/18/20 Range/Units 04:05 04:05 04:54 WBC 16.0 H (3.8-10.6) k/uL Neutrophils # 12.2 H (1.3-7.7) k/uL ABG HCO3 28 H (21-25) mmol/L ABG Total CO2 29 H (19-24) mmol/L ABG O2 Saturation 97.3 H (94-97) % Carbon Dioxide 32 H (22-30) mmol/L Glucose 107 H (74-99) mg/dL POC Glucose (mg/dL) (75-99) mg/dL Total Bilirubin 1.7 H (0.2-1.3) mg/dL AST 121 H (17-59) U/L ALT 70 H (4-49) U/L Total Protein 6.0 L (6.3-8.2) g/dL Albumin 3.0 L (3.5-5.0) g/dL Microbiology - Last 24 Hours (Table) 07/15/20 23:00 Urine Culture - Final Urine,Catheterized Assessment and Plan (1) S/P coronary artery stent placement Current Visit: Yes Status: Acute Code(s): Z95.5 - PRESENCE OF CORONARY ANGIOPLASTY IMPLANT AND GRAFT SNOMED Code(s): 723137553 (2) Cardiac arrest Current Visit: Yes Status: Acute Code(s): I46.9 - CARDIAC ARREST, CAUSE UNSPECIFIED SNOMED Code(s): 074826134 (3) Hypoxic encephalopathy Current Visit: Yes Status: Acute Code(s): G93.1 - ANOXIC BRAIN DAMAGE, NOT ELSEWHERE CLASSIFIED SNOMED Code(s): 063310564 (4) History of pulmonary fibrosis Current Visit: Yes Status: Acute Code(s): Z87.09 - PERSONAL HISTORY OF OTHER DISEASES OF THE RESPIRATORY SYSTEM SNOMED Code(s): 333645614 Plan: No significant change in the mental status. Cardiac was stable. Patient is going to get an echocardiogram and continue current medical therapy
--- NOTE | 2020-07-18 10:39 | P.PN ---
Subjective Principal diagnosis: Cardiac arrest remains intubated on MV sedation turned off responds to painful stimuli Objective - Vital Signs Vital signs: Vital Signs Temp 98.4 F 07/18/20 04:00 Pulse 80 07/18/20 07:00 Resp 21 07/18/20 07:00 BP 101/69 07/18/20 07:00 Pulse Ox 99 07/18/20 07:00 Intake & Output 07/17/20 07/18/20 07/18/20 18:59 06:59 18:59 Intake Total 8990.154 0194.718 100.122 Output Total 1600 360 30 Balance -497.032 719.718 70.122 Weight 101.3 kg 101.3 kg Intake: IV 975 825 75 NS @ 75 975 825 75 Intake, IV Titration 67.968 254.718 25.122 Amount propofoL 1,000 mg In 67.968 254.718 25.122 Empty Bag 1 bag @ Titrate IV .Q0M [facility] Rx#: [id number] Other 60 Output: Urine 1600 360 30 Other: Voiding Method Indwelling Catheter Indwelling Catheter - Exam GENERAL: The patient is intubated on ventilator, off sedation HENT: Neck is supple. cardiac : The heart rate is regular rate rhythm. No murmurs to auscultation. LUNG: Intubad and on Mechanical ventilaror.decreased bs ABDOMEN/GI: Bowel sounds present in all 4 quadrants. No tenderness to palpation throughout. NEUROLOGICAL: responds to painful stimuli - Labs CBC & Chem 7: 07/18/20 04:05 07/18/20 04:05 Labs: Abnormal Lab Results - Last 24 Hours (Table) 07/17/20 07/17/20 07/18/20 Range/Units 11:08 23:20 04:05 WBC 16.0 H (3.8-10.6) k/uL Neutrophils # 12.2 H (1.3-7.7) k/uL ABG HCO3 (21-25) mmol/L ABG Total CO2 (19-24) mmol/L ABG O2 Saturation (94-97) % Carbon Dioxide (22-30) mmol/L Glucose (74-99) mg/dL POC Glucose (mg/dL) 110 H 101 H (75-99) mg/dL Total Bilirubin (0.2-1.3) mg/dL AST (17-59) U/L ALT (4-49) U/L Total Protein (6.3-8.2) g/dL Albumin (3.5-5.0) g/dL 07/18/20 07/18/20 Range/Units 04:05 04:54 WBC (3.8-10.6) k/uL Neutrophils # (1.3-7.7) k/uL ABG HCO3 28 H (21-25) mmol/L ABG Total CO2 29 H (19-24) mmol/L ABG O2 Saturation 97.3 H (94-97) % Carbon Dioxide 32 H (22-30) mmol/L Glucose 107 H (74-99) mg/dL POC Glucose (mg/dL) (75-99) mg/dL Total Bilirubin 1.7 H (0.2-1.3) mg/dL AST 121 H (17-59) U/L ALT 70 H (4-49) U/L Total Protein 6.0 L (6.3-8.2) g/dL Albumin 3.0 L (3.5-5.0) g/dL Assessment and Plan Plan: 1. Ventricular Fibrillation related Cardiac Arrest, 2D ECHO 2. Marcus-lateral STEMI, successful revascularization 3. Pulmonary Fibrosis on nintedanib 4. Encephalopathy the due primarily anoxic brain injury from his cardiac arrest 5. Leukocytosis down to 16,000 6. ALMAZ 2/2 decreased perfusion : scr 1.3 , resolved down to 1 7. Cerebral edema on brain CT: neurology following , on hypertonic solution 54 year old man with pulmonary fibrosis on nintedanib presented with cardiac arrest related to v fib secondary to marcus-lateral STEMI, who underwent successful revascularization Plan: - ICU consult, Neuro consult, Cardiology consult, input appreciated - on metoprolol , aspirin, Lasix and heparin. Continue supportive care Continue to check neurological status off sedation on 3% saline
--- NOTE | 2020-07-18 11:26 | XR ---
EXAMINATION TYPE: XR chest 1V portable DATE OF EXAM: 07/18/2020 CLINICAL HISTORY: Right sided central venous catheter placement. TECHNIQUE: Single AP portable semiupright view of the chest is obtained. COMPARISON: Chest x-ray from earlier today and older studies FINDINGS: New right subclavian Mediport catheter terminating in SVC. No pneumothorax noted. Stable endotracheal and orogastric tubes. Reticular increased markings diffusely and bilaterally rem ain present. Cardiac silhouette size stable and mildly enlarged. Multilevel spurring in the thoracic spine is redemonstrated. IMPRESSION: New right subclavian central venous catheter terminates in SVC. No pneumothorax. Other fi ndings stable.
--- NOTE | 2020-07-18 12:01 | ECHOF ---
Referral Reason:cardiac arrest MEASUREMENTS -------- HEIGHT: 180.3 cm WEIGHT: 101.2 kg BP: IVSd: 0.8 cm (0.6 - 1.1) LVIDd: 4.1 cm (3.9 - 5.3) LVPWd: 1.1 cm (0.6 - 1.1) EDV(Teich): 76 ml IVSs: 1.2 cm LVIDs: 3.6 cm LVPWs: 1.3 cm %IVS Thck: 55 % ESV(Teich): 53 ml EF(Teich): 30 % %FS: 14 % SV(Teich): 23 ml LVLd A4C: 8.8 cm LVEDV MOD A4C: 125 ml LVLs A4C: 8.4 cm LVESV MOD A4C: 72 ml LVEF MOD A4C: 42 % SV MOD A4C: 53 ml LALs A4C: 4.7 cm LAAs A4C: 15.8 cm LAESV A-L A4C: 45 ml LAESV MOD A4C: 43 ml LALs A2C: 4.9 cm LAAs A2C: 12.9 cm LAESV A-L A2C: 29 ml LAESV MOD A2C: 27 ml LAESV(A-L): 37 ml LAESV Index (A-L): 16.75 ml/m Ao Diam: 2.8 cm (2.0 - 3.7) LA Diam: 2.9 cm (2.7 - 3.8) AV Cusp: 2.1 cm (1.5 - 2.6) EPSS: 0.3 cm MV E Jamal: 0.77 m/s MV DecT: 176 ms MV Dec Door: 4.4 m/s MV A Jamal: 0.76 m/s MV E/A Ratio: 1.02 MV PHT: 51 ms MR Vmax: 1.53 m/s MR maxP.41 mmHg AV Vmax: 1.07 m/s AV maxP.56 mmHg TR Vmax: 1.70 m/s TR maxP.53 mmHg RAP: 5.00 mmHg RVSP: 16.53 mmHg MV EF SLOPE: 94.85 mm/s (70 - 150) MV EXCURSION: 21.17 mm (> 18.000) FINDINGS -------- This was a technically difficult study with suboptimal views. Pt. on a vent. The left ventricular size is normal. Left ventricular wall thickness is normal. Overall left vent ricular systolic function is moderate-severely impaired with, an EF between 30 - 35 %. Basal le septal LV wall motion is hypokinetic. Mid anteroseptal LV wall motion is hypokinetic. Apical an terior LV wall motion is hypokinetic. Apical lateral LV wall motion is hypokinetic. Apical infe rior LV wall motion is hypokinetic. Apical septum LV wall motion is hypokinetic. The right ventricle is normal in size. The left atrial size is normal. Normal LA size by volume 22+/-6 ml/m2. The right atrial size is normal. The aortic valve is trileaflet and appears structurally normal. The mitral valve is normal. There is trace mitral regurgitation. The tricuspid valve appears structurally normal. Trace tricuspid regurgitation present. Right deanna tricular systolic pressure is normal at < 35 mmHg. The pulmonic valve was not well visualized. The aortic root size is normal. There is no pericardial effusion. CONCLUSIONS -------- 1. The left ventricular size is normal. 2. Left ventricular wall thickness is normal. 3. Overall left ventricular systolic function is moderate-severely impaired with, an EF between 30 - 35 %. 4. Basal anteroseptal LV wall motion is hypokinetic. 5. Mid anteroseptal LV wall motion is hypokinetic. 6. Apical anterior LV wall motion is hypokinetic. 7. Apical lateral LV wall motion is hypokinetic. 8. Apical inferior LV wall motion is hypokinetic. 9. Apical septum LV wall motion is hypokinetic. 10. There is trace mitral regurgitation. 11. Trace tricuspid regurgitation present. 12. There is no pericardial effusion. ACQUISITIONS LIBRARIAN: Monica Valles, JANNETTE
[2020-07-18 12:05] LABS: Glucose,Whole Blood 94 mg/dL (75-99)
[2020-07-18 12:52] LABS: Sodium 138 mmol/L (137-145)
[2020-07-18] MEDS: CHLORHEXIDINE GLUCONATE 15 ML CUP MUCOUS MEM SCH ×2 (12:55→20:32)
[2020-07-18] MEDS: ASPIRIN 81 MG PO SCH (12:55)
[2020-07-18] MEDS: METOPROLOL TARTRATE 25 MG TAB PO SCH ×2 (12:55→20:32)
[2020-07-18] MEDS: PANTOPRAZOLE 40 MG/10 ML VIAL IV SCH (12:55)
[2020-07-18] MEDS: FUROSEMIDE 10 MG/ML 4 ML VIAL IV SCH (12:55)
[2020-07-18] MEDS: TICAGRELOR 90 MG TAB PO SCH ×2 (12:55→20:33)
--- NOTE | 2020-07-18 14:12 | P.PN ---
Subjective Progress Note Date: 07/18/20 Principal diagnosis: Cardiac arrest This is a 54-year-old male patient with known history of pulmonary fibrosis and apparently is on the transplant list at the [facility]. He was supposed to have a pulmonary function tests done today however he was not feeling well. He was complaining of indigestion and developed worsening shortness of breath and his heart rate was 44. Before the was able to call EMS he collapsed at home. He was found to be in ventricular fibrillation and was shocked twice by the fire department. Upon arrival by EMS he was still in ventricular fibrillation had 4 more shocks 3 of epinephrine and bolused with amiodarone. He did develop return of spontaneous circulation and brought here to the emergency room. EKG revealed ST segment elevation in the lateral leads and the patient was subsequently taken emergently to the [facility]. He had undergone stenting to the mid LAD lesion that was 90% stenosed. He remained intubated on mechanical ventilator and return to the intensive care unit where he is seen today in consultation. Computed tomography scan of the brain revealed no acute intracranial abnormality. Current vent settings are assist control at a rate of 18, tidal volume 450, FiO2 40% and a PEEP of 5 and arterial blood gases on 100% FiO2 revealed a pO2 greater than 400, pCO2 43 and a pH of 7.22. White count 46. Hemoglobin 16.3. Platelets 385. Sodium 137. Potassium 4.2. Creatinine 1.53. Glucose 288. AST 225. ALT 114. Troponin 2.63. Echocardiogram pending. Currently on propofol at 30 mcg/kg/m. Heparin drip. He was initiated on Brilinta. Patient was reevaluated today on 07/16/20, patient remains in the ICU, intubated and mechanically ventilated. He is on assist control rate of 18 tidal volume is 450 FiO2 is 40% and PEEP of 5 ABG showed a pO2 of 129 pCO2 of 34 pH of 7.40. Patient is presently on propofol at 10 mcg/kg/m. Chest x-ray showed interstitial lung disease, cannot rule out underlying congestive heart failure, however I did recommend one dose of Lasix 40 mg IV push 1. Patient is not responsive to any stimuli, opens eyes only there is downward gaze deviation. Breathing over the ventilator set rate all labs were reviewed chest x-ray was also reviewed and the patient will be started on enteral feeding. Patient was reevaluated today on 07/17/20, remains in the ICU, intubated, and mechanically ventilated. His ventilator settings are assist control rate of 18 tidal volume is 450 FiO2 is 40% and PEEP is 5. ABG showed a pO2 of 161 pCO2 of 39 pH of 7.45. Patient was on minimal dose of propofol at 30 mcg/kg/m, however I recommended that we hold propofol this morning, and would like to assess mental status again off propofol. Patient is also scheduled to have EGD this mo rning. Patient is not responding to any commands, no gaze deviation noted today. At times noted by nurses that he was biting on the endotracheal tube had to be placed on small amount of sedation. Chest x-ray continues to show diffuse interstitial lung disease consistent with pulmonary fibrosis. His WBC count today is 20 hemoglobin is 14.2 hematocrit is 42. Electrolytes are normal, renal profile is normal. Liver enzymes, are borderline elevated/AST and ALP. Ammonia level is normal. Patient was reevaluated today on 07/18/20, remains intubated and mechanically ventilated. Patient is presently on assist control rate of 18 tidal volume is 450 FiO2 40% and PEEP is 5. ABG showed a pO2 of 97 pCO2 41 pH of 7.44. Patient is now off propofol, he was on 20 mcg/kg/m, and the plan is to hold off propofol lung enough to continue to assess mental status. Patient remains unresponsive to any stimuli. CT of the brain yesterday showed diffuse cerebral edema, and he is down placed on mannitol by neurology at 1 g/kg loading dose, and he was placed on 3% hypertonic saline at 40 mL per hour. The goal is to reach a sodium of 145-155. Considering the patient has poor IV access, went ahead and placed a right subclavian central line. Also placed a left radial arterial line for hemodynamic monitoring. Chest x-ray continues to show evidence of pulmonary fibrosis. Consistent with usual interstitial pneumonitis/UIP. Labs today showed WBC of 16 hemoglobin is 13.0. Celexa lites are normal renal profile is normal. Objective - Vital Signs Vital signs: Vital Signs Temp 99.7 F H 07/18/20 13:00 Pulse 101 H 07/18/20 13:00 Resp 27 H 07/18/20 13:00 BP 123/84 07/18/20 11:00 Pulse Ox 96 07/18/20 13:00 Intake & Output 07/17/20 07/18/20 07/18/20 18:59 06:59 18:59 Intake Total 3000.208 1037.718 2355.122 Output Total 1600 360 185 Balance -497.032 292.152 4015.122 Weight 101.3 kg 101.3 kg Intake: IV 753 205 6469 Mannitol 20% Pmx 500 ml 1000 In Saline 1 500ml.bag @ 500 mls/hr IV ONCE ONE Rx #:[id number] NS @ 75 975 825 330 Sodium Chloride 0.9% 1, 1000 000 ml @ 999 mls/hr IV . Q1H1M [facility] Rx#:[id number] Intake, IV Titration 67.968 254.718 25.122 Amount propofoL 1,000 mg In 67.968 254.718 25.122 Empty Bag 1 bag @ Titrate IV .Q0M [facility] Rx#: [id number] Other 60 Output: Urine 1600 360 185 Other: Voiding Method Indwelling Catheter Indwelling Catheter ABP, PAP, CO, CI - Last Documented Arterial Blood Pressure 156/78 - Exam GENERAL EXAM: Intubated, sedated 54-year-old gentleman. HEAD: Normocephalic. Endotracheal tube is intact, however the patient has significant whitish secretions and requires frequent suctioning. EYES: Pupils are 3 mm, sluggishly reactive to light. NOSE: Clear with pink turbinates. THROAT: Oral endotracheal and gastric tube secured in place. No erythema or exudates. NECK: No masses, no JVD. CHEST: No chest wall deformity. LUNGS: Equal air entry with coarse crackles in the bilateral posterior bases. CVS: S1 and S2 normal with no audible murmur, regular rhythm. ABDOMEN: No hepatosplenomegaly, normal bowel sounds, no guarding or rigidity. SKIN: No rashes CENTRAL NERVOUS SYSTEM: Sedated, opens eyes intermittently. Not following any commands. Pupils are sluggishly reactive. Positive brainstem reflexes. EXTREMITIES: There is no peripheral edema. positive clubbing, no cyanosis. Peripheral pulses are intact. - Labs CBC & Chem 7: 07/18/20 04:05 07/18/20 12:30 Labs: Abnormal Lab Results - Last 24 Hours (Table) 07/17/20 07/18/20 07/18/20 Range/Units 23:20 04:05 04:05 WBC 16.0 H (3.8-10.6) k/uL Neutrophils # 12.2 H (1.3-7.7) k/uL ABG HCO3 (21-25) mmol/L ABG Total CO2 (19-24) mmol/L ABG O2 Saturation (94-97) % Carbon Dioxide 32 H (22-30) mmol/L Glucose 107 H (74-99) mg/dL POC Glucose (mg/dL) 101 H (75-99) mg/dL Total Bilirubin 1.7 H (0.2-1.3) mg/dL AST 121 H (17-59) U/L ALT 70 H (4-49) U/L Total Protein 6.0 L (6.3-8.2) g/dL Albumin 3.0 L (3.5-5.0) g/dL 07/18/20 Range/Units 04:54 WBC (3.8-10.6) k/uL Neutrophils # (1.3-7.7) k/uL ABG HCO3 28 H (21-25) mmol/L ABG Total CO2 29 H (19-24) mmol/L ABG O2 Saturation 97.3 H (94-97) % Carbon Dioxide (22-30) mmol/L Glucose (74-99) mg/dL POC Glucose (mg/dL) (75-99) mg/dL Total Bilirubin (0.2-1.3) mg/dL AST (17-59) U/L ALT (4-49) U/L Total Protein (6.3-8.2) g/dL Albumin (3.5-5.0) g/dL Assessment and Plan Assessment: Impression: Cardiopulmonary arrest secondary to acute ST elevation myocardial infarction, prolonged downtime/CPR including several defibrillations until the patient had return of spontaneous circulation. Suspect anoxic brain injury and anoxic metabolic encephalopathy. No change in neurological status since admission. Coronary artery disease with 90% occlusion of mid LAD, status post stent placement. Acute hypoxic respiratory failure secondary to cardiac arrest requiring intubation and mechanical ventilation. History of severe idiopathic pulmonary fibrosis/UIP supposedly the patient is on the list for lung transplant at the [facility] admission. History of chronic tobacco dependence. Diffuse cerebral edema secondary to anoxic brain injury and cardiac arrest. Neurology is recommending mannitol. And hypertonic saline. Severe clubbing secondary to underlying interstitial lung disease/UIP. Recommendation: Continue mannitol and hypertonic saline. Continue ventilatory support. Nutritional support./Enteral feeding. Continue the same ventilatory settings. Hemodynamic support Continue to monitor neurological status daily. Depending on his neurological status or improvement, further decisions will be made. And then would be able to approach the family regarding comfort care measures depending on the recommendation of the neurologist. Critical care time is greater than 30 minutes. Excluding time placed on procedures. Time with Patient: Greater than 30
[2020-07-18 14:47] LABS: Appearance,Urine Clear (Clear); Bilirubin,Urine Negative (Negative); Blood,Urine Moderate (Negative); Color,Urine Light Yellow; Glucose,Urine (UA) Negative (Negative); Ketones,Urine Negative (Negative); Leukocyte Esterase,Urine Negative (Negative); Mucus,Urine Rare /hpf; Nitrite,Urine Negative (Negative); Protein,Urine Negative (Negative); RBC,Urine 84 /hpf (0-5); Specific Gravity,Urine 1.023 (1.001-1.035); Urobilinogen,Urine <2.0 mg/dL (<2.0); WBC,Urine 2 /hpf (0-5)
--- NOTE | 2020-07-18 15:35 | PCN ---
PROCEDURE NOTE OPERATIVE REPORT: Placement of the left radial arterial line. PREOPERATIVE DIAGNOSIS: Cardiac arrest and anoxic brain injury. POSTOP DIAGNOSIS: Cardiac arrest and anoxic brain injury. ANESTHESIA: Used none deployed. PROCEDURE DETAILS: The left wrist was prepared in a sterile fashion and drapes were applied. The left radial artery was palpated, cannulated, and a guidewire was placed. A Cook catheter was inserted over the guidewire, and the guidewire was removed. Good blood flow, good waveform noted. No evidence of any immediate complications. Line was secured using 3.0 silk sutures. MMODL / IJN: [id number] /
--- NOTE | 2020-07-18 15:35 | PCN ---
PROCEDURE NOTE OPERATIVE REPORT: Placement of the right subclavian triple-lumen catheter. PREOPERATIVE DIAGNOSIS: Post cardiac arrest and anoxic brain injury. POSTOPERATIVE DIAGNOSIS: Post cardiac arrest and anoxic brain injury. ANESTHESIA USED: 2 mL of 1% lidocaine. PROCEDURE DETAILS: The patient was placed in a supine position, the area of the right subclavian area was prepared in a sterile fashion and drapes were applied. The area below the right clavicle was anesthetized using lidocaine. Then using the infraclavicular approach, the right subclavian vein was easily cannulated, a guidewire was placed, the area around the guidewire was dilated. Then a triple-lumen catheter was inserted over the guidewire, the guidewire was removed. Good blood flow noted in the 3 different ports of the triple-lumen catheter. The line was secured using 3.0 silk sutures. Chest x- ray postoperatively showed adequate placement of the line and no complications. MMODL / IJN: [id number] / [facility]#: [id number]
[2020-07-18 16:58] LABS: Sodium 141 mmol/L (137-145)
[2020-07-18 17:32] LABS: Glucose,Whole Blood 107 mg/dL (75-99)
[2020-07-18] MEDS ORDERED: ARTIFICIAL TEARS OINTMENT 3.5 GM TUBE BOTH EYES PRN (19:24)
[2020-07-18 21:02] LABS: Sodium 146 mmol/L (137-145)
--- NOTE | 2020-07-18 23:48 | P.PN ---
Progress Note - Text Progress Note Date: 07/18/20 per discussion with RN and set up and charger, we are awaiting call back from [facility] regarding accepting the patient for transfer due to lack of neurology coverage this weekend patient needs neuro intensive care management
[2020-07-19] MEDS ORDERED: SODIUM CHLORIDE 3%(HYPERTONIC) 500 ML IV ONE (00:15)
[2020-07-19 01:30] LABS: Glucose,Whole Blood 119 mg/dL (75-99)
[2020-07-19 02:03] LABS: Sodium 147 mmol/L (137-145)
--- NOTE | 2020-07-19 02:29 | CT ---
EXAM: CT Head Without Intravenous Contrast CLINICAL HISTORY: ITS.REASON CT Reason: cerebral edema TECHNIQUE: Axial computed tomography images of the head/brain without intravenous contrast. CTDI is 50.8 mGy and DLP is 1345.4 mGy-cm. This CT exam was performed using one or more of the following dose reduction techniques: automated exposure control, adjustment of the mA and/or kV according to patient size, and/or use of iterative reconstruction technique. COMPARISON: 07/17/2001 FINDINGS: Brain: No hemorrhage or mass effect. Unchanged diffuse cerebral edema. Ventricles: No hydrocephalus. Bones/joints: Unremarkable. Soft tissues: Unremarkable. Sinuses: Unremarkable. Mastoid air cells: Clear. IMPRESSION: No acute hemorrhage, hydrocephalus, or mass effect. Unchanged diffuse cerebral edema.
[2020-07-19 04:35] LABS: Basophils # (A) 0.1 k/uL (0-0.2); Basophils % (A) 0 %; Eosinophils # (A) 0.2 k/uL (0-0.7); Eosinophils % (A) 1 %; HCT 41.6 % (39.0-53.0); HGB 13.6 gm/dL (13.0-17.5); Lymphocytes # (A) 1.4 k/uL (1.0-4.8); Lymphocytes % (A) 8 %; MCHC 32.6 g/dL (31.0-37.0); MCV 95.1 fL (80.0-100.0); Mean Platelet Volume 7.5; Monocytes % (A) 6 %; Neutrophils # (A) 14.6 k/uL (1.3-7.7); Neutrophils % (A) 84 %; Platelet Count 308 k/uL (150-450); RBC 4.37 m/uL (4.30-5.90); RDW 13.4 % (11.5-15.5); WBC 17.5 k/uL (3.8-10.6)
[2020-07-19 05:02] LABS: ABG Base Excess 5.7 mmol/L; ABG HCO3 30 mmol/L (21-25); ABG Oxygen Saturation 98.3 % (94-97); ABG PCO2 43 mmHg (35-45); ABG PH 7.45 (7.35-7.45); ABG PO2 130 mmHg (83-108); ABG TCO2 31 mmol/L (19-24); Allen Test Performed? Yes
[2020-07-19 05:03] LABS: ALT 56 U/L (4-49); AST 88 U/L (17-59); African American GFR (CKD) >90 (>60 ml/min/1.73 sqM); Albumin 3.2 g/dL (3.5-5.0); Alkaline Phosphatase 96 U/L (38-126); Anion Gap 2 mmol/L; Blood Urea Nitrogen 17 mg/dL (9-20); Calcium 9.2 mg/dL (8.4-10.2); Carbon Dioxide 34 mmol/L (22-30); Chloride 112 mmol/L (98-107); Glucose 127 mg/dL (74-99); Non-African American GFR(CKD) >90 (>60 ml/min/1.73 sqM); Potassium 3.7 mmol/L (3.5-5.1); Sodium 148 mmol/L (137-145); Total Bilirubin 1.8 mg/dL (0.2-1.3); Total Protein 6.7 g/dL (6.3-8.2)
[2020-07-19 06:07] LABS: Glucose,Whole Blood 119 mg/dL (75-99)
--- NOTE | 2020-07-19 06:24 | XR ---
EXAMINATION TYPE: XR chest 1V DATE OF EXAM: 07/19/2020 CLINICAL HISTORY: Difficulty breathing progress study. TECHNIQUE: Single AP portable upright view of the chest is obtained. COMPARISON: Chest x-ray from one day earlier and older studies. FINDINGS: Stable endotracheal tube, orogastric tube, and right subclavian central venous catheter. Reticular and alveolar increased markings bilaterally remain present with some overall improved aerat ion. Cardiac silhouette size is less prominent, upper limits of normal. Multilevel spurring in the th oracic spine is redemonstrated. No pleural effusion or pneumothorax noted. IMPRESSION: Persistent but improving bilateral multifocal infiltrates and/or edema.
--- NOTE | 2020-07-19 08:18 | P.PN ---
Subjective Progress Note Date: 07/19/20 Principal diagnosis: Cardiac arrest and [facility] This is a 54-year-old gentleman with history of pulmonary fibrosis who was being evaluated at [facility] for possible lung transplant. He was apparently scheduled to have a cardiac catheterization next week. He however was admitted with chest pain and cardiac arrest with resuscitation that was about 20 minutes long. Are Patient revealed critical lesion in the mid LAD and total occlusion of the distal LAD. Patient had stent placement of the mid LAD. Patient has been maintaining sinus rhythm. Patient is intubated. Apparently patient has brain stem reflexes. Still has signs of anoxic encephalopathy. Patient is having good urinary output. Patient is on antiplatelet agents and beta blockers being given through the NG tube. Vital signs are stable. We'll continue current medical therapy. Pulmonary is also following along with neurology. It. Prognosis is guarded at this time. 07/17/2020: This patient with pulmonary fibrosis who was admitted with cardiac arrest seemed to be hemodynamically stable. His mental status hasn't shown much improvement. He is off sedation so far no clear signs of improvement in his mental status. No arrhythmias noted. Vital signs are otherwise stable. Chest x-rays clear. Continue his Supportive care. Continue current medical therapy. Neuro follow-up and recommendations. Prognosis seemed to be poor at this time. 07/18/2020: This patient's mental status hasn't shown any improvement. Apparently, computed tomography scan showed edema of the brain. Patient is being treated with 3% normal saline. Chest x-ray shows diffuse infiltrates consistent with pulmonary fibrosis. Cardiac was patient remains stable and no arrhythmias noted. Patient is going to have an echocardiogram. Continue current medical therapy. Prognosis is guarded 07/19/2020: The patient's mental status hasn't changed. Repeat the computed tomography scan of the brain showed persistent edema which is diffuse. Patient is on IV. He percent saline. His sodium level is about 149. Yesterday patient had problems with urination. After replacing the Zaldivar catheter patient, patient put out good amount of urine. Patient is maintaining sinus rhythm. His echocardiogram showed severe hypokinesia of the anteroapical and anteroseptal areas with an ejection fraction of 30-35%. We'll continue current medical therapy. Continued respiratory support. There is a plan that patient may be transferred to [facility]. Prognosis is guarded Objective - Vital Signs Vital signs: Vital Signs Temp 100.1 F H 07/19/20 04:00 Pulse 90 07/19/20 07:00 Resp 23 07/19/20 07:00 BP 118/79 07/19/20 07:00 Pulse Ox 94 L 07/19/20 07:00 Intake & Output 07/18/20 07/19/20 07/19/20 18:59 06:59 18:59 Intake Total 2605.122 720 30 Output Total 5490 765 40 Balance -2884.878 -45 -10 Weight 101.3 kg 102.5 kg Intake: IV 2580 420 30 Mannitol 20% Pmx 500 ml 1000 In Saline 1 500ml.bag @ 500 mls/hr IV ONCE ONE Rx #:[id number] NS @ 75 580 240 10 Sodium Chloride 0.9% 1, 1000 000 ml @ 999 mls/hr IV . Q1H1M ONE Rx#:[id number] Sodium Chloride 3%( 180 20 Hypertonic) 500 ml @ 40 mls/hr IV .[id number] ONE Rx #:[id number] Intake, IV Titration 25.122 Amount propofoL 1,000 mg In 25.122 Empty Bag 1 bag @ Titrate IV .Q0M [facility] Rx#: [id number] Tube Feeding 270 Other 30 Output: Urine 5490 765 40 Other: Voiding Method Indwelling Catheter Indwelling Catheter ABP, PAP, CO, CI - Last Documented Arterial Blood Pressure 121/62 - Exam GENERAL EXAM: Patient is intubated and sedated HEENT: Normocephalic. Normal reaction of pupils, equal size, normal range of extraocular motion. No erythema or exudates in the throat. NECK: No masses, no nuchal rigidity. CHEST: No chest wall deformity. LUNGS: Diminished air entry HEART: S1 and S2 normal . ABDOMEN: Soft SKIN: No rashes CENTRAL NERVOUS SYSTEM: As per neurology. Patient has brain stem reflexes EXTREMITIES: No cyanosis, clubbing or edema. - Labs CBC & Chem 7: 07/19/20 04:15 07/19/20 04:15 Labs: Abnormal Lab Results - Last 24 Hours (Table) 07/18/20 07/18/20 07/18/20 Range/Units 13:45 16:36 17:31 WBC (3.8-10.6) k/uL Neutrophils # (1.3-7.7) k/uL ABG pO2 (83-108) mmHg ABG HCO3 (21-25) mmol/L ABG Total CO2 (19-24) mmol/L ABG O2 Saturation (94-97) % Sodium (137-145) mmol/L Chloride (98-107) mmol/L Carbon Dioxide (22-30) mmol/L Glucose (74-99) mg/dL POC Glucose (mg/dL) 107 H (75-99) mg/dL Osmolality 311 H (280-301) mosm/kg Total Bilirubin (0.2-1.3) mg/dL AST (17-59) U/L ALT (4-49) U/L Albumin (3.5-5.0) g/dL Urine Blood Moderate H (Negative) Urine RBC 84 H (0-5) /hpf Urine Mucus Rare H (None) /hpf 07/18/20 07/19/20 07/19/20 Range/Units 20:35 01:18 01:29 WBC (3.8-10.6) k/uL Neutrophils # (1.3-7.7) k/uL ABG pO2 (83-108) mmHg ABG HCO3 (21-25) mmol/L ABG Total CO2 (19-24) mmol/L ABG O2 Saturation (94-97) % Sodium 146 H 147 H (137-145) mmol/L Chloride (98-107) mmol/L Carbon Dioxide (22-30) mmol/L Glucose (74-99) mg/dL POC Glucose (mg/dL) 119 H (75-99) mg/dL Osmolality 312 H 316 H (280-301) mosm/kg Total Bilirubin (0.2-1.3) mg/dL AST (17-59) U/L ALT (4-49) U/L Albumin (3.5-5.0) g/dL Urine Blood (Negative) Urine RBC (0-5) /hpf Urine Mucus (None) /hpf 07/19/20 07/19/20 07/19/20 Range/Units 04:15 04:15 04:58 WBC 17.5 H (3.8-10.6) k/uL Neutrophils # 14.6 H (1.3-7.7) k/uL ABG pO2 130 H (83-108) mmHg ABG HCO3 30 H (21-25) mmol/L ABG Total CO2 31 H (19-24) mmol/L ABG O2 Saturation 98.3 H (94-97) % Sodium 148 H (137-145) mmol/L Chloride 112 H (98-107) mmol/L Carbon Dioxide 34 H (22-30) mmol/L Glucose 127 H (74-99) mg/dL POC Glucose (mg/dL) (75-99) mg/dL Osmolality (280-301) mosm/kg Total Bilirubin 1.8 H (0.2-1.3) mg/dL AST 88 H (17-59) U/L ALT 56 H (4-49) U/L Albumin 3.2 L (3.5-5.0) g/dL Urine Blood (Negative) Urine RBC (0-5) /hpf Urine Mucus (None) /hpf 07/19/20 Range/Units 06:05 WBC (3.8-10.6) k/uL Neutrophils # (1.3-7.7) k/uL ABG pO2 (83-108) mmHg ABG HCO3 (21-25) mmol/L ABG Total CO2 (19-24) mmol/L ABG O2 Saturation (94-97) % Sodium (137-145) mmol/L Chloride (98-107) mmol/L Carbon Dioxide (22-30) mmol/L Glucose (74-99) mg/dL POC Glucose (mg/dL) 119 H (75-99) mg/dL Osmolality (280-301) mosm/kg Total Bilirubin (0.2-1.3) mg/dL AST (17-59) U/L ALT (4-49) U/L Albumin (3.5-5.0) g/dL Urine Blood (Negative) Urine RBC (0-5) /hpf Urine Mucus (None) /hpf Assessment and Plan (1) S/P coronary artery stent placement Current Visit: Yes Status: Acute Code(s): Z95.5 - PRESENCE OF CORONARY ANGIOPLASTY IMPLANT AND GRAFT SNOMED Code(s): 007783084 (2) Cardiac arrest Current Visit: Yes Status: Acute Code(s): I46.9 - CARDIAC ARREST, CAUSE UNSPECIFIED SNOMED Code(s): 545923427 (3) Hypoxic encephalopathy Current Visit: Yes Status: Acute Code(s): G93.1 - ANOXIC BRAIN DAMAGE, NOT ELSEWHERE CLASSIFIED SNOMED Code(s): 973658017 (4) History of pulmonary fibrosis Current Visit: Yes Status: Acute Code(s): Z87.09 - PERSONAL HISTORY OF OTHER DISEASES OF THE RESPIRATORY SYSTEM SNOMED Code(s): 832385178 Plan: Patient's urinary output has improved. Mental status hasn't improved. Being treated for cerebral edema. Possible transfer to [facility]. She
[2020-07-19] MEDS: ASPIRIN 81 MG PO SCH (10:04)
[2020-07-19] MEDS: TICAGRELOR 90 MG TAB PO SCH ×2 (10:04→20:32)
[2020-07-19] MEDS: PANTOPRAZOLE 40 MG/10 ML VIAL IV SCH (10:04)
[2020-07-19] MEDS: METOPROLOL TARTRATE 25 MG TAB PO SCH ×2 (10:04→20:32)
[2020-07-19] MEDS: FUROSEMIDE 10 MG/ML 4 ML VIAL IV SCH (10:04)
[2020-07-19] MEDS: CHLORHEXIDINE GLUCONATE 15 ML CUP MUCOUS MEM SCH ×2 (10:05→20:32)
--- NOTE | 2020-07-19 13:02 | P.PN ---
Subjective Progress Note Date: 07/19/20 Principal diagnosis: Cardiac arrest This is a 54-year-old male patient with known history of pulmonary fibrosis and apparently is on the transplant list at the [facility]. He was supposed to have a pulmonary function tests done today however he was not feeling well. He was complaining of indigestion and developed worsening shortness of breath and his heart rate was 44. Before the was able to call EMS he collapsed at home. He was found to be in ventricular fibrillation and was shocked twice by the fire department. Upon arrival by EMS he was still in ventricular fibrillation had 4 more shocks 3 of epinephrine and bolused with amiodarone. He did develop return of spontaneous circulation and brought here to the emergency room. EKG revealed ST segment elevation in the lateral leads and the patient was subsequently taken emergently to the [facility]. He had undergone stenting to the mid LAD lesion that was 90% stenosed. He remained intubated on mechanical ventilator and return to the intensive care unit where he is seen today in consultation. Computed tomography scan of the brain revealed no acute intracranial abnormality. Current vent settings are assist control at a rate of 18, tidal volume 450, FiO2 40% and a PEEP of 5 and arterial blood gases on 100% FiO2 revealed a pO2 greater than 400, pCO2 43 and a pH of 7.22. White count 46. Hemoglobin 16.3. Platelets 385. Sodium 137. Potassium 4.2. Creatinine 1.53. Glucose 288. AST 225. ALT 114. Troponin 2.63. Echocardiogram pending. Currently on propofol at 30 mcg/kg/m. Heparin drip. He was initiated on Brilinta. Patient was reevaluated today on 07/16/20, patient remains in the ICU, intubated and mechanically ventilated. He is on assist control rate of 18 tidal volume is 450 FiO2 is 40% and PEEP of 5 ABG showed a pO2 of 129 pCO2 of 34 pH of 7.40. Patient is presently on propofol at 10 mcg/kg/m. Chest x-ray showed interstitial lung disease, cannot rule out underlying congestive heart failure, however I did recommend one dose of Lasix 40 mg IV push 1. Patient is not responsive to any stimuli, opens eyes only there is downward gaze deviation. Breathing over the ventilator set rate all labs were reviewed chest x-ray was also reviewed and the patient will be started on enteral feeding. Patient was reevaluated today on 07/17/20, remains in the ICU, intubated, and mechanically ventilated. His ventilator settings are assist control rate of 18 tidal volume is 450 FiO2 is 40% and PEEP is 5. ABG showed a pO2 of 161 pCO2 of 39 pH of 7.45. Patient was on minimal dose of propofol at 30 mcg/kg/m, however I recommended that we hold propofol this morning, and would like to assess mental status again off propofol. Patient is also scheduled to have EGD this mo rning. Patient is not responding to any commands, no gaze deviation noted today. At times noted by nurses that he was biting on the endotracheal tube had to be placed on small amount of sedation. Chest x-ray continues to show diffuse interstitial lung disease consistent with pulmonary fibrosis. His WBC count today is 20 hemoglobin is 14.2 hematocrit is 42. Electrolytes are normal, renal profile is normal. Liver enzymes, are borderline elevated/AST and ALP. Ammonia level is normal. Patient was reevaluated today on 07/18/20, remains intubated and mechanically ventilated. Patient is presently on assist control rate of 18 tidal volume is 450 FiO2 40% and PEEP is 5. ABG showed a pO2 of 97 pCO2 41 pH of 7.44. Patient is now off propofol, he was on 20 mcg/kg/m, and the plan is to hold off propofol lung enough to continue to assess mental status. Patient remains unresponsive to any stimuli. CT of the brain yesterday showed diffuse cerebral edema, and he is down placed on mannitol by neurology at 1 g/kg loading dose, and he was placed on 3% hypertonic saline at 40 mL per hour. The goal is to reach a sodium of 145-155. Considering the patient has poor IV access, went ahead and placed a right subclavian central line. Also placed a left radial arterial line for hemodynamic monitoring. Chest x-ray continues to show evidence of pulmonary fibrosis. Consistent with usual interstitial pneumonitis/UIP. Labs today showed WBC of 16 hemoglobin is 13.0. Celexa lites are normal renal profile is normal. Patient was reevaluated today on 07/19/20, remains intubated and mechanically ventilated. Patient is on assist control rate of 18 tidal volume is 450 FiO2 is 40% and PEEP of 5 . Patient remains unresponsive, has been off propofol for the last 24 hours, and no responses whatsoever except opening eyes on his own intermittently. Does not respond to any verbal or painful stimuli. His ABG today showed a pO2 of 130 pCO2 of 43 pH of 7.45. Patient is not requiring any pressors, he is done with the mannitol effusion, and he is now on 3% saline as recommended by neurology to get his sodium up to the low [address] of the brain showed no change continues to have cerebral edema in spite of mannitol and in spite of hypertonic saline. Then urologist who was on the case is recommending transferring the patient to [facility], however considering his overall clinical status, I don't believe he will be accepted at [facility], the admitting physician will try and discussed the case with the transfer team at [facility], but again I have a feeling that the patient will not be accepted. Patient is on enteral feeding up to goal. Chest x-ray today showed no change, patient has clearly severe interstitial lung disease consistent with usual interstitial pneumonitis. Objective - Vital Signs Vital signs: Vital Signs Temp 99.3 F 07/19/20 08:00 Pulse 92 07/19/20 11:00 Resp 18 07/19/20 11:00 BP 118/79 07/19/20 07:00 Pulse Ox 95 07/19/20 11:00 Intake & Output 07/18/20 07/19/20 07/19/20 18:59 06:59 18:59 Intake Total 2605.122 720 153.69 Output Total 5490 765 740 Balance -2884.878 -45 -586.31 Weight 101.3 kg 102.5 kg Intake: IV 2580 420 150 Mannitol 20% Pmx 500 ml 1000 In Saline 1 500ml.bag @ 500 mls/hr IV ONCE ONE Rx #:[id number] NS @ 75 580 240 50 Sodium Chloride 0.9% 1, 1000 000 ml @ 999 mls/hr IV . Q1H1M ONE Rx#:[id number] Sodium Chloride 3%( 180 100 Hypertonic) 500 ml @ 40 mls/hr IV .[id number] ONE Rx #:[id number] Intake, IV Titration 25.122 3.69 Amount propofoL 1,000 mg In 25.122 3.69 Empty Bag 1 bag @ Titrate IV .Q0M [facility] Rx#: [id number] Tube Feeding 270 Other 30 Output: Urine 5490 765 740 Other: Voiding Method Indwelling Catheter Indwelling Catheter ABP, PAP, CO, CI - Last Documented Arterial Blood Pressure 90/55 - Exam GENERAL EXAM: Revealed 54-year-old on mechanical ventilation, unresponsive to any stimuli, opens eyes intermittently , no other neurological responses noted HEAD: Normocephalic. Endotracheal tube is intact, however the patient has significant whitish secretions and requires frequent suctioning. Intermittently biting on the endotracheal tube, may have to sedate again. EYES: Pupils are 3 mm, sluggishly reactive to light. NOSE: Clear with pink turbinates. THROAT: Normal mucous membranes, endotracheal tube is intact. Orogastric tube is intact. NECK: No masses, no JVD. CHEST: No chest wall deformity. LUNGS: Fine crackles and Velcro rales at the bases bilaterally. CVS: S1 and S2 normal with no audible murmur, regular rhythm. ABDOMEN: No hepatosplenomegaly, normal bowel sounds, no guarding or rigidity. SKIN: No rashes CENTRAL NERVOUS SYSTEM: Sedated, opens eyes intermittently. Not following any commands. Pupils are sluggishly reactive. Positive brainstem reflexes. EXTREMITIES: Severe clubbing noted in upper extremities and lower extremities/dose. No edema, no cyanosis. - Labs CBC & Chem 7: 07/19/20 04:15 07/19/20 12:10 Labs: Abnormal Lab Results - Last 24 Hours (Table) 07/18/20 07/18/20 07/18/20 Range/Units 13:45 16:36 17:31 WBC (3.8-10.6) k/uL Neutrophils # (1.3-7.7) k/uL ABG pO2 (83-108) mmHg ABG HCO3 (21-25) mmol/L ABG Total CO2 (19-24) mmol/L ABG O2 Saturation (94-97) % Sodium (137-145) mmol/L Chloride (98-107) mmol/L Carbon Dioxide (22-30) mmol/L Glucose (74-99) mg/dL POC Glucose (mg/dL) 107 H (75-99) mg/dL Osmolality 311 H (280-301) mosm/kg Total Bilirubin (0.2-1.3) mg/dL AST (17-59) U/L ALT (4-49) U/L Albumin (3.5-5.0) g/dL Urine Blood Moderate H (Negative) Urine RBC 84 H (0-5) /hpf Urine Mucus Rare H (None) /hpf 07/18/20 07/19/20 07/19/20 Range/Units 20:35 01:18 01:29 WBC (3.8-10.6) k/uL Neutrophils # (1.3-7.7) k/uL ABG pO2 (83-108) mmHg ABG HCO3 (21-25) mmol/L ABG Total CO2 (19-24) mmol/L ABG O2 Saturation (94-97) % Sodium 146 H 147 H (137-145) mmol/L Chloride (98-107) mmol/L Carbon Dioxide (22-30) mmol/L Glucose (74-99) mg/dL POC Glucose (mg/dL) 119 H (75-99) mg/dL Osmolality 312 H 316 H (280-301) mosm/kg Total Bilirubin (0.2-1.3) mg/dL AST (17-59) U/L ALT (4-49) U/L Albumin (3.5-5.0) g/dL Urine Blood (Negative) Urine RBC (0-5) /hpf Urine Mucus (None) /hpf 07/19/20 07/19/20 07/19/20 Range/Units 04:15 04:15 04:15 WBC 17.5 H (3.8-10.6) k/uL Neutrophils # 14.6 H (1.3-7.7) k/uL ABG pO2 (83-108) mmHg ABG HCO3 (21-25) mmol/L ABG Total CO2 (19-24) mmol/L ABG O2 Saturation (94-97) % Sodium 148 H (137-145) mmol/L Chloride 112 H (98-107) mmol/L Carbon Dioxide 34 H (22-30) mmol/L Glucose 127 H (74-99) mg/dL POC Glucose (mg/dL) (75-99) mg/dL Osmolality 315 H (280-301) mosm/kg Total Bilirubin 1.8 H (0.2-1.3) mg/dL AST 88 H (17-59) U/L ALT 56 H (4-49) U/L Albumin 3.2 L (3.5-5.0) g/dL Urine Blood (Negative) Urine RBC (0-5) /hpf Urine Mucus (None) /hpf 07/19/20 07/19/20 07/19/20 Range/Units 04:58 06:05 12:10 WBC (3.8-10.6) k/uL Neutrophils # (1.3-7.7) k/uL ABG pO2 130 H (83-108) mmHg ABG HCO3 30 H (21-25) mmol/L ABG Total CO2 31 H (19-24) mmol/L ABG O2 Saturation 98.3 H (94-97) % Sodium (137-145) mmol/L Chloride (98-107) mmol/L Carbon Dioxide (22-30) mmol/L Glucose (74-99) mg/dL POC Glucose (mg/dL) 119 H (75-99) mg/dL Osmolality 317 H (280-301) mosm/kg Total Bilirubin (0.2-1.3) mg/dL AST (17-59) U/L ALT (4-49) U/L Albumin (3.5-5.0) g/dL Urine Blood (Negative) Urine RBC (0-5) /hpf Urine Mucus (None) /hpf 07/19/20 Range/Units 12:10 WBC (3.8-10.6) k/uL Neutrophils # (1.3-7.7) k/uL ABG pO2 (83-108) mmHg ABG HCO3 (21-25) mmol/L ABG Total CO2 (19-24) mmol/L ABG O2 Saturation (94-97) % Sodium 150 H (137-145) mmol/L Chloride (98-107) mmol/L Carbon Dioxide (22-30) mmol/L Glucose (74-99) mg/dL POC Glucose (mg/dL) (75-99) mg/dL Osmolality (280-301) mosm/kg Total Bilirubin (0.2-1.3) mg/dL AST (17-59) U/L ALT (4-49) U/L Albumin (3.5-5.0) g/dL Urine Blood (Negative) Urine RBC (0-5) /hpf Urine Mucus (None) /hpf Assessment and Plan Assessment: Impression: Cardiopulmonary arrest secondary to acute ST elevation myocardial infarction, prolonged downtime/CPR including several defibrillations until the patient had return of spontaneous circulation. Patient was intubated on 07/15/20 upon presentation, and no significant change has been noted neurologically since admission. Suspect anoxic brain injury and anoxic metabolic encephalopathy. No change in neurological status since admission. Coronary artery disease with 90% occlusion of mid LAD, status post stent placement. Acute hypoxic respiratory failure secondary to cardiac arrest requiring i ntubation and mechanical ventilation. History of severe idiopathic pulmonary fibrosis/UIP supposedly the patient is on the list for lung transplant list at the [facility]. History of chronic tobacco dependence. Diffuse cerebral edema secondary to anoxic brain injury and cardiac arrest. No major improvement with mannitol and hypertonic saline. Severe clubbing secondary to underlying interstitial lung disease/UIP. Recommendation: Continue hypertonic saline as recommended by neurology. Continue ventilatory support. Nutritional support./Enteral feeding. Continue the same ventilatory settings. May have to sedate the patient if he continues biting on the endotracheal tube. However will use small dose of propofol if needed. Hemodynamic support Continue to monitor neurological status daily. It is worthwhile discussing his condition with neurology staff or transfer team staff at [facility], but very unlikely the patient will be accepted. Depending on his neurological status in the next couple of days, would consider discussing his overall prognostic picture with family, and consider comfort care measures. The admitting physician and has been doing so and discussing his status with on a regular basis. Critical care time is over 30 minutes Time with Patient: Greater than 30
[2020-07-19 13:03] LABS: Glucose,Whole Blood 126 mg/dL (75-99)
--- NOTE | 2020-07-19 14:34 | P.PN ---
Subjective Progress Note Date: 07/19/20 Principal diagnosis: unresponsive Patient is a 54-year-old male with a history of pulmonary fibrosis, angina, and GERD who initially complained of indigestion, but had a syncopal episode and became pulseless. His weight*bystander CPR and then EMS continued CPR. He had Ros within the emergency department. Probable down time was 20+ minutes. He was found to have ST segment elevated myocardial infarction emergently to the Route Sales Driver with a stent placed to the LAD. He was started on broad went up from the Route Sales Driver and admitted to the ICU. Critical care and neurology were c onsulted. Neurology reviewed his CT head and thought there was subtle vega- white matter differentiation loss. He underwent an echocardiogram which showed left ventricle hypokinesis with an ejection fraction of 30-35%. He was started on Lasix. He was noted to be unresponsive on the vent however was breathing over the vent. On the morning of 07/17 he underwent an EEG which showed background slowing suggestive mild to moderate encephalopathy. Neurology initially felt we would know more about the neuro possible recovery 1-2 weeks after his cardiac arrest. Repeat CT brain was done on the evening of 07/17/20 which shows diffuse cerebral edema with slight loss of the normal vega-white matter differentiation. Neurology does not cover hospital over the weekend however they were able to take a phone call on 07/18 due to the diffucse cerebral edema they recommended initiating 3% saline as well as mannitol. Patient was monitored closely. He continues to breathe over the vent have a pos itive cough but no gag. On the evening of 07/18 transfer process was initiated with Crissy Warner, We were not able to speak with a physician. Patient seen and examined at bedside with nursing present as well as Dr. Knight. He has no purposeful movements at this point in time. Patient had been held for greater than 24 hours. General: Ill-appearing, no distress, appears at stated age Derm: warm, dry, clubbing bilateral hands and feet Head: atraumatic, normocephalic, symmetric Eyes: EOMI, no lid lag, anicteric sclera Mouth: no lip lesion, mucus membranes moist Cardiovascular: S1S2 reg, no murmur, positive posterior tibial pulse bilateral, Lungs: CTA bilateral, no rhonchi, no rales , no accessory muscle use Abdominal: soft, nontender to palpation, no guarding, no appreciable organome lesvia Ext: no gross muscle atrophy, no edema, no contractures Neuro: Pupils dilated and sluggishly reactive Breathing over the vent, , positive cough, no gag, during doll's testing his eyes fixated on the ceiling, no withdrawal to pain in all 4 extremities or supraorbital ridge, no tremors, Psych: Nonresponsive on vent without sedation STEMI with stent to the LAD Ischemic systolic cardiomyopathy Diffuse cerebral edema due anoxic encephalopathy Hypernatremia Acute hypoxic respiratory failure secondary to cardiopulmonary arrest Severe idiopathic pulmonary fibrosis/UIP being worked up for lung transplant at [facility] History of chronic tobacco abuse Ventricular fibrillation Leukocytosis, reactive Acute kidney injury, resolved Ischemic hepatitis, improving Case was discussed with Crissy Warner however they declined transfer of the patient as per neurologist will not be available this weekend. Also spoke with [facility] and they declined to transfer of the patient has refill his overall prognosis is poor and he could not benefit him greater than what we are doing here. I updated his Francisca over the phone for approximately 22 minutes regarding his change in plan of care, not transferring the patient, and his overall poor prognosis secondary to diffuse cerebral edema secondary to anoxic encephalopathy. She is asking about possible trach and PEG of the patient and when these will be occurring. She is wondering how long it'll take him to recover. I again discussed that I do not think he will have significant neurologic recovery. We will repeat his head CT in the morning to assess the extent of cerebral edema. She is asking about possibility of a repeat EEG which I will defer to the neurologist who is here tomorrow. He will continue supp ortive care with tube feedings. We'll attempt to hold sedation as able. We'll continue with every 4 hours electrolytes for sodium monitoring. He has been taken off of mannitol. If neuro status worsens then consider cerebral perfusion scan. Continue with aspirin, Birllenta DVT prophylaxis: SCDs Discussed with: nursing, [facility] team 3 different times, Crissy Hansen physician, and Dr. Daisy No Anticipated discharge: unknown Anticipated discharge place: unknown A total of 95 minutes was spent on the care of this complex patient more than 50% of the time was spent in counseling and care coordination. [phone] at bedside, [phone] on phone with (will count as face to face in light of COVID-19 Pandemic). 55 minutes of face to face time. Objective - Vital Signs Vital signs: Vital Signs Temp 99.3 F 07/19/20 12:00 Pulse 87 07/19/20 13:00 Resp 23 07/19/20 13:00 BP 118/79 07/19/20 07:00 Pulse Ox 96 07/19/20 13:00 Intake & Output 07/18/20 07/19/20 07/19/20 18:59 06:59 18:59 Intake Total 2605.122 720 301.789 Output Total 5490 765 890 Balance -2884.878 -45 -588.211 Weight 101.3 kg 102.5 kg Intake: IV 2580 420 210 Mannitol 20% Pmx 500 ml 1000 In Saline 1 500ml.bag @ 500 mls/hr IV ONCE ONE Rx #:[id number] NS @ 75 580 240 70 Sodium Chloride 0.9% 1, 1000 000 ml @ 999 mls/hr IV . Q1H1M ONE Rx#:[id number] Sodium Chloride 3%( 180 140 Hypertonic) 500 ml @ 40 mls/hr IV .[id number] ONE Rx #:[id number] Intake, IV Titration 25.122 91.789 Amount propofoL 1,000 mg In 25.122 91.789 Empty Bag 1 bag @ Titrate IV .Q0M [facility] Rx#: [id number] Tube Feeding 270 Other 30 Output: Urine 5490 765 890 Other: Voiding Method Indwelling Catheter Indwelling Catheter Indwelling Catheter ABP, PAP, CO, CI - Last Documented Arterial Blood Pressure 96/52 - Labs CBC & Chem 7: 07/19/20 04:15 07/19/20 12:10 Labs: Abnormal Lab Results - Last 24 Hours (Table) 07/18/20 07/18/20 07/18/20 Range/Units 13:45 16:36 17:31 WBC (3.8-10.6) k/uL Neutrophils # (1.3-7.7) k/uL ABG pO2 (83-108) mmHg ABG HCO3 (21-25) mmol/L ABG Total CO2 (19-24) mmol/L ABG O2 Saturation (94-97) % Sodium (137-145) mmol/L Chloride (98-107) mmol/L Carbon Dioxide (22-30) mmol/L Glucose (74-99) mg/dL POC Glucose (mg/dL) 107 H (75-99) mg/dL Osmolality 311 H (280-301) mosm/kg Total Bilirubin (0.2-1.3) mg/dL AST (17-59) U/L ALT (4-49) U/L Albumin (3.5-5.0) g/dL Urine Blood Moderate H (Negative) Urine RBC 84 H (0-5) /hpf Urine Mucus Rare H (None) /hpf 07/18/20 07/19/20 07/19/20 Range/Units 20:35 01:18 01:29 WBC (3.8-10.6) k/uL Neutrophils # (1.3-7.7) k/uL ABG pO2 (83-108) mmHg ABG HCO3 (21-25) mmol/L ABG Total CO2 (19-24) mmol/L ABG O2 Saturation (94-97) % Sodium 146 H 147 H (137-145) mmol/L Chloride (98-107) mmol/L Carbon Dioxide (22-30) mmol/L Glucose (74-99) mg/dL POC Glucose (mg/dL) 119 H (75-99) mg/dL Osmolality 312 H 316 H (280-301) mosm/kg Total Bilirubin (0.2-1.3) mg/dL AST (17-59) U/L ALT (4-49) U/L Albumin (3.5-5.0) g/dL Urine Blood (Negative) Urine RBC (0-5) /hpf Urine Mucus (None) /hpf 07/19/20 07/19/20 07/19/20 Range/Units 04:15 04:15 04:15 WBC 17.5 H (3.8-10.6) k/uL Neutrophils # 14.6 H (1.3-7.7) k/uL ABG pO2 (83-108) mmHg ABG HCO3 (21-25) mmol/L ABG Total CO2 (19-24) mmol/L ABG O2 Saturation (94-97) % Sodium 148 H (137-145) mmol/L Chloride 112 H (98-107) mmol/L Carbon Dioxide 34 H (22-30) mmol/L Glucose 127 H (74-99) mg/dL POC Glucose (mg/dL) (75-99) mg/dL Osmolality 315 H (280-301) mosm/kg Total Bilirubin 1.8 H (0.2-1.3) mg/dL AST 88 H (17-59) U/L ALT 56 H (4-49) U/L Albumin 3.2 L (3.5-5.0) g/dL Urine Blood (Negative) Urine RBC (0-5) /hpf Urine Mucus (None) /hpf 07/19/20 07/19/20 07/19/20 Range/Units 04:58 06:05 12:10 WBC (3.8-10.6) k/uL Neutrophils # (1.3-7.7) k/uL ABG pO2 130 H (83-108) mmHg ABG HCO3 30 H (21-25) mmol/L ABG Total CO2 31 H (19-24) mmol/L ABG O2 Saturation 98.3 H (94-97) % Sodium (137-145) mmol/L Chloride (98-107) mmol/L Carbon Dioxide (22-30) mmol/L Glucose (74-99) mg/dL POC Glucose (mg/dL) 119 H (75-99) mg/dL Osmolality 317 H (280-301) mosm/kg Total Bilirubin (0.2-1.3) mg/dL AST (17-59) U/L ALT (4-49) U/L Albumin (3.5-5.0) g/dL Urine Blood (Negative) Urine RBC (0-5) /hpf Urine Mucus (None) /hpf 07/19/20 07/19/20 Range/Units 12:10 13:01 WBC (3.8-10.6) k/uL Neutrophils # (1.3-7.7) k/uL ABG pO2 (83-108) mmHg ABG HCO3 (21-25) mmol/L ABG Total CO2 (19-24) mmol/L ABG O2 Saturation (94-97) % Sodium 150 H (137-145) mmol/L Chloride (98-107) mmol/L Carbon Dioxide (22-30) mmol/L Glucose (74-99) mg/dL POC Glucose (mg/dL) 126 H (75-99) mg/dL Osmolality (280-301) mosm/kg Total Bilirubin (0.2-1.3) mg/dL AST (17-59) U/L ALT (4-49) U/L Albumin (3.5-5.0) g/dL Urine Blood (Negative) Urine RBC (0-5) /hpf Urine Mucus (None) /hpf
[2020-07-19 17:21] LABS: Glucose,Whole Blood 99 mg/dL (75-99)
[2020-07-19 18:49] LABS: Sodium 147 mmol/L (137-145)
[2020-07-19] MEDS: SODIUM CHLORIDE 3%(HYPERTONIC) 500 ML IV SCH (20:32)
[2020-07-19 23:47] LABS: Glucose,Whole Blood 111 mg/dL (75-99)
[2020-07-20 00:33] LABS: Sodium 150 mmol/L (137-145)
[2020-07-20 03:35] LABS: ABG Base Excess 8.6 mmol/L; ABG HCO3 32 mmol/L (21-25); ABG Oxygen Saturation 98.8 % (94-97); ABG PCO2 45 mmHg (35-45); ABG PH 7.47 (7.35-7.45); ABG PO2 166 mmHg (83-108); ABG TCO2 34 mmol/L (19-24); Allen Test Performed? Yes
[2020-07-20 05:40] LABS: Glucose,Whole Blood 112 mg/dL (75-99)
[2020-07-20 06:01] LABS: HCT 39.7 % (39.0-53.0); HGB 12.5 gm/dL (13.0-17.5); MCH 30.5 pg (25.0-35.0); MCHC 31.4 g/dL (31.0-37.0); Mean Platelet Volume 7.7; Platelet Count 326 k/uL (150-450); RBC 4.09 m/uL (4.30-5.90); RDW 13.9 % (11.5-15.5); WBC 15.6 k/uL (3.8-10.6)
[2020-07-20 06:15] LABS: African American GFR (CKD) >90 (>60 ml/min/1.73 sqM); Anion Gap 3 mmol/L; Blood Urea Nitrogen 25 mg/dL (9-20); Calcium 9.2 mg/dL (8.4-10.2); Carbon Dioxide 34 mmol/L (22-30); Chloride 113 mmol/L (98-107); Glucose 130 mg/dL (74-99); Non-African American GFR(CKD) >90 (>60 ml/min/1.73 sqM); Potassium 3.5 mmol/L (3.5-5.1); Sodium 150 mmol/L (137-145)
[2020-07-20] MEDS: POTASSIUM BICARBONATE/CIT AC 20 MEQ TABLET.EFF NG-TUBE SCH ×2 (07:06→07:58)
--- NOTE | 2020-07-20 08:28 | XR ---
EXAMINATION TYPE: XR chest 1V portable DATE OF EXAM: 07/20/2020 COMPARISON: 07/19/2020 INDICATION: Pneumonia TECHNIQUE: Single frontal view of the chest is obtained. FINDINGS: The heart size is normal. The pulmonary vasculature is normal. There is diffuse increased lung markings bilaterally. Endotracheal tube tip is above the suzie. Naso gastric tube transverses the thorax. Right central venous catheter is stable with tip in the right at rium. IMPRESSION: 1. Diffuse increased lung markings compatible with pneumonia. Findings are stable from comparison
[2020-07-20] MEDS: TICAGRELOR 90 MG TAB PO SCH ×2 (11:10→21:31)
[2020-07-20] MEDS: ASPIRIN 81 MG PO SCH (11:11)
[2020-07-20] MEDS: CHLORHEXIDINE GLUCONATE 15 ML CUP MUCOUS MEM SCH ×2 (11:11→21:31)
[2020-07-20] MEDS: PANTOPRAZOLE 40 MG/10 ML VIAL IV SCH (11:11)
[2020-07-20] MEDS: FUROSEMIDE 10 MG/ML 4 ML VIAL IV SCH (11:11)
[2020-07-20] MEDS: METOPROLOL TARTRATE 25 MG TAB PO SCH ×2 (11:11→21:31)
[2020-07-20 12:24] LABS: Sodium 152 mmol/L (137-145)
[2020-07-20] MEDS: levETIRAcetam IV 500 MG in SODIUM CHLORIDE 0.9% 100 ML IVPB SCH ×2 (14:05→21:31)
--- NOTE | 2020-07-20 16:23 | P.PN ---
Subjective Progress Note Date: 07/20/20 Principal diagnosis: Cardiac arrest and PA This is a 54-year-old gentleman with history of pulmonary fibrosis who was being evaluated at [facility] for possible lung transplant. He was apparently scheduled to have a cardiac catheterization next week. He however was admitted with chest pain and cardiac arrest with resuscitation that was about 20 minutes long. Are Patient revealed critical lesion in the mid LAD and total occlusion of the distal LAD. Patient had stent placement of the mid LAD. Patient has been maintaining sinus rhythm. Patient is intubated. Apparently patient has brain stem reflexes. Still has signs of anoxic encephalopathy. Patient is having good urinary output. Patient is on antiplatelet agents and beta blockers being given through the NG tube. Vital signs are stable. We'll continue current medical therapy. Pulmonary is also following along with neurology. It. Prognosis is guarded at this time. 07/17/2020: This patient with pulmonary fibrosis who was admitted with cardiac arrest seemed to be hemodynamically stable. His mental status hasn't shown much improvement. He is off sedation so far no clear signs of improvement in his mental status. No arrhythmias noted. Vital signs are otherwise stable. Chest x-rays clear. Continue his Supportive care. Continue current medical therapy. Neuro follow-up and recommendations. Prognosis seemed to be poor at this time. 07/18/2020: This patient's mental status hasn't shown any improvement. Apparently, computed tomography scan showed edema of the brain. Patient is being treated with 3% normal saline. Chest x-ray shows diffuse infiltrates consistent with pulmonary fibrosis. Cardiac was patient remains stable and no arrhythmias noted. Patient is going to have an echocardiogram. Continue current medical therapy. Prognosis is guarded 07/19/2020: The patient's mental status hasn't changed. Repeat the computed tomography scan of the brain showed persistent edema which is diffuse. Patient is on IV. He percent saline. His sodium level is about 149. Yesterday patient had problems with urination. After replacing the Zaldivar catheter patient, patient put out good amount of urine. Patient is maintaining sinus rhythm. His echocardiogram showed severe hypokinesia of the anteroapical and anteroseptal areas with an ejection fraction of 30-35%. We'll continue current medical therapy. Continued respiratory support. There is a plan that patient may be transferred to [facility]. Prognosis is guarded. 07/20/2020: This patient's neurological status hasn't improved. Attends to transfer to tertiary center were not successful. Hemodynamically patient remains stable. Urine output is fair. No arrhythmias are detected. We'll cont inue current medical therapy. Apparently is interested in having tracheostomy. His prognosis appears to be poor. We'll continue current medical measurements. Family physician and also custodial engineer are discussing with the family regarding possible comfort care. Objective - Vital Signs Vital signs: Vital Signs Temp 98.7 F 07/20/20 13:00 Pulse 107 H 07/20/20 16:00 Resp 29 H 07/20/20 16:00 BP 118/79 07/20/20 08:00 Pulse Ox 93 L 07/20/20 16:00 Intake & Output 07/19/20 07/20/20 07/20/20 18:59 06:59 18:59 Intake Total 8689.112 9698.795 898.038 Output Total 1215 510 985 Balance -132.806 619.795 -86.962 Weight 101.1 kg Intake: IV 270 273 270 0.9 NS 80 NS @ 75 130 110 10 Pressure bag 33 30 Sodium Chloride 3%( 130 50 Hypertonic) 500 ml @ 10 mls/hr IV .Q24H [facility] Rx#: [id number] Sodium Chloride 3%( 140 Hypertonic) 500 ml @ 40 mls/hr IV .[id number] [facility] Rx #:[id number] levETIRAcetam IV 500 mg 100 In Sodium Chloride 0.9% 100 ml @ 400 mls/hr IVPB Q12HR [facility] Rx#:[id number] Intake, IV Titration 182.194 181.795 63.038 Amount propofoL 1,000 mg In 182.194 181.795 63.038 Empty Bag 1 bag @ Titrate IV .Q0M [facility] Rx#: [id number] Tube Feeding 540 585 495 Lipid 10 Sodium Chloride 3%( 10 Hypertonic) 500 ml @ 10 mls/hr IV .Q24H [facility] Rx#: [id number] Other 90 90 60 Output: Urine 1215 510 985 Other: Voiding Method Indwelling Catheter Indwelling Catheter Indwelling Catheter ABP, PAP, CO, CI - Last Documented Arterial Blood Pressure 114/62 - Exam GENERAL EXAM: Patient is intubated and sedated HEENT: Normocephalic. Normal reaction of pupils, equal size, normal range of extraocular motion. No erythema or exudates in the throat. NECK: No masses, no nuchal rigidity. CHEST: No chest wall deformity. LUNGS: Diminished air entry HEART: S1 and S2 normal . ABDOMEN: Soft SKIN: No rashes CENTRAL NERVOUS SYSTEM: As per neurology. Patient has brain stem reflexes EXTREMITIES: No cyanosis, clubbing or edema. - Labs CBC & Chem 7: 07/20/20 05:30 07/20/20 16:08 Labs: Abnormal Lab Results - Last 24 Hours (Table) 07/19/20 07/19/20 07/19/20 Range/Units 18:23 23:45 23:45 WBC (3.8-10.6) k/uL RBC (4.30-5.90) m/uL Hgb (13.0-17.5) gm/dL ABG pH (7.35-7.45) ABG pO2 (83-108) mmHg ABG HCO3 (21-25) mmol/L ABG Total CO2 (19-24) mmol/L ABG O2 Saturation (94-97) % Sodium 147 H 150 H (137-145) mmol/L Chloride (98-107) mmol/L Carbon Dioxide (22-30) mmol/L BUN (9-20) mg/dL Glucose (74-99) mg/dL POC Glucose (mg/dL) 111 H (75-99) mg/dL Osmolality 319 H 319 H (280-301) mosm/kg 07/20/20 07/20/20 07/20/20 Range/Units 03:30 05:30 05:30 WBC 15.6 H (3.8-10.6) k/uL RBC 4.09 L (4.30-5.90) m/uL Hgb 12.5 L (13.0-17.5) gm/dL ABG pH 7.47 H (7.35-7.45) ABG pO2 166 H (83-108) mmHg ABG HCO3 32 H (21-25) mmol/L ABG Total CO2 34 H (19-24) mmol/L ABG O2 Saturation 98.8 H (94-97) % Sodium 150 H (137-145) mmol/L Chloride 113 H (98-107) mmol/L Carbon Dioxide 34 H (22-30) mmol/L BUN 25 H (9-20) mg/dL Glucose 130 H (74-99) mg/dL POC Glucose (mg/dL) (75-99) mg/dL Osmolality (280-301) mosm/kg 07/20/20 07/20/20 07/20/20 Range/Units 05:39 12:00 16:08 WBC (3.8-10.6) k/uL RBC (4.30-5.90) m/uL Hgb (13.0-17.5) gm/dL ABG pH (7.35-7.45) ABG pO2 (83-108) mmHg ABG HCO3 (21-25) mmol/L ABG Total CO2 (19-24) mmol/L ABG O2 Saturation (94-97) % Sodium 152 H 151 H (137-145) mmol/L Chloride (98-107) mmol/L Carbon Dioxide (22-30) mmol/L BUN (9-20) mg/dL Glucose (74-99) mg/dL POC Glucose (mg/dL) 112 H (75-99) mg/dL Osmolality 321 H (280-301) mosm/kg Assessment and Plan (1) S/P coronary artery stent placement Current Visit: Yes Status: Acute Code(s): Z95.5 - PRESENCE OF CORONARY ANGIOPLASTY IMPLANT AND GRAFT SNOMED Code(s): 827101681 (2) Cardiac arrest Current Visit: Yes Status: Acute Code(s): I46.9 - CARDIAC ARREST, CAUSE UNSPECIFIED SNOMED Code(s): 530489960 (3) Hypoxic encephalopathy Current Visit: Yes Status: Acute Code(s): G93.1 - ANOXIC BRAIN DAMAGE, NOT ELSEWHERE CLASSIFIED SNOMED Code(s): 917245986 (4) History of pulmonary fibrosis Current Visit: Yes Status: Acute Code(s): Z87.09 - PERSONAL HISTORY OF OTHER DISEASES OF THE RESPIRATORY SYSTEM SNOMED Code(s): 446779869 Plan: Patient's urinary output has improved. Mental status hasn't improved. Being treated for cerebral edema. Possible transfer to [facility]. Patient's neurological status is poor. Hemodynamically stable. Discussions are being held with family regarding possible comfort care.
--- NOTE | 2020-07-20 16:41 | P.PN ---
Subjective Progress Note Date: 07/20/20 (delayed charting seen at 0945) Principal diagnosis: unresponsive Patient is a 54-year-old male with a history of pulmonary fibrosis, angina, and GERD who initially complained of indigestion, but had a syncopal episode and became pulseless. His weight*bystander CPR and then EMS continued CPR. He had Ros within the emergency department. Probable down time was 20+ minutes. He was found to have ST segment elevated myocardial infarction emergently to the Proj Engineer with a stent placed to the LAD. He was started on broad went up from the Proj Engineer and admitted to the ICU. Critical care and neurology were consulted. Neurology reviewed his CT head and thought there was subtle vega- white matter differentiation loss. He underwent an echocardiogram which showed left ventricle hypokinesis with an ejection fraction of 30-35%. He was started on Lasix. He was noted to be unresponsive on the vent however was breathing over the vent. On the morning of 07/17 he underwent an EEG which showed background slowing suggestive mild to moderate encephalopathy. Neurology initially felt we would know more about the neuro possible recovery 1-2 weeks after his cardiac arrest. Repeat CT brain was done on the evening of 07/17/20 which shows diffuse cerebral edema with slight loss of the normal vega-white matter differentiation. Neurology does not cover hospital over the weekend however they were able to take a phone call on 07/18 due to the diffucse cerebral edema they recommended initiating 3% saline as well as mannitol. Patient was monitored closely. He continues to breathe over the vent have a positive cough but no gag. Both Crissy Warner and Devin Segovia have decline the patient in transfer. Patient seen and examined at bedside. No acute events overnight. General: Ill-appearing, no distress, appears at stated age Derm: warm, dry, clubbing bilateral hands and feet Head: atraumatic, normocephalic, symmetric Eyes: EOMI, no lid lag, anicteric sclera Mouth: no lip lesion, mucus membranes moist Cardiovascular: S1S2 reg, no murmur, positive posterior tibial pulse bilateral, Lungs: CTA bilateral, no rhonchi, no rales , no accessory muscle use Abdominal: soft, nontender to palpation, no guarding, no appreciable organomegaly Ext: no gross muscle atrophy, no edema, no contractures Neuro: Pupils equal round reactive to light, breathing over the vent, , positive cough, no gag, during doll's testing his eyes fixated on the ceiling, no withdrawal to pain in all 4 extremities or supraorbital ridge, no tremors, Psych: Nonresponsive on vent STEMI with stent to the LAD Ischemic systolic cardiomyopathy Diffuse cerebral edema due anoxic encephalopathy Hypernatremia Acute hypoxic respiratory failure secondary to cardiopulmonary arrest Severe idiopathic pulmonary fibrosis/UIP being worked up for lung transplant at [facility] History of chronic tobacco abuse Ventricular fibrillation Leukocytosis, reactive Acute kidney injury, resolved Ischemic hepatitis, improving Continue with aspirin, Birllenta, supportive care with tube feedings, continue management as per pulmonary recommendations, Cardio recs, neuro recs. Poor overal all prognosis. Continue with Keppra for seizure prophylaxis. 3% per neruology recs updated at bedside. She wants to wait 10 days to see if he will recover, She is aware of poor prognosis, she expresses that she will not trach him but is hoping for a miracle. She states that people who have survivied longer down times keep reaching out to her adn telling her not to given up hope. DVT prophylaxis: SCDs Discussed with: nursing, Dr. Jason Villa, and Dr. Ashley Villa Anticipated discharge: unknown Anticipated discharge place: unknown A total of 35 minutes was spent on the care of this complex patient more than 50% of the time was spent in counseling and care coordination. [phone] at bedside, [phone] on phone with (will count as face to face in light of COVID-19 Pandemic). 55 minutes of face to face time. Objective - Vital Signs Vital signs: Vital Signs Temp 98.7 F 07/20/20 13:00 Pulse 107 H 07/20/20 16:00 Resp 29 H 07/20/20 16:00 BP 118/79 07/20/20 08:00 Pulse Ox 93 L 07/20/20 16:00 Intake & Output 07/19/20 07/20/20 07/20/20 18:59 06:59 18:59 Intake Total 0465.921 1740.795 956.038 Output Total 0055 700 9021 Balance -132.806 619.795 -78.962 Weight 101.1 kg Intake: IV 270 273 283 0.9 NS 90 NS @ 75 130 110 10 Pressure bag 33 33 Sodium Chloride 3%( 130 50 Hypertonic) 500 ml @ 10 mls/hr IV .Q24H [facility] Rx#: [id number] Sodium Chloride 3%( 140 Hypertonic) 500 ml @ 40 mls/hr IV .[id number] ONE Rx #:[id number] levETIRAcetam IV 500 mg 100 In Sodium Chloride 0.9% 100 ml @ 400 mls/hr IVPB Q12HR [facility] Rx#:[id number] Intake, IV Titration 182.194 181.795 63.038 Amount propofoL 1,000 mg In 182.194 181.795 63.038 Empty Bag 1 bag @ Titrate IV .Q0M [facility] Rx#: [id number] Tube Feeding 540 585 540 Lipid 10 Sodium Chloride 3%( 10 Hypertonic) 500 ml @ 10 mls/hr IV .Q24H [facility] Rx#: [id number] Other 90 90 60 Output: Urine 0773 498 0680 Other: Voiding Method Indwelling Catheter Indwelling Catheter Indwelling Catheter ABP, PAP, CO, CI - Last Documented Arterial Blood Pressure 114/62 - Labs CBC & Chem 7: 07/20/20 05:30 07/20/20 16:08 Labs: Abnormal Lab Results - Last 24 Hours (Table) 07/19/20 07/19/20 07/19/20 Range/Units 18:23 23:45 23:45 WBC (3.8-10.6) k/uL RBC (4.30-5.90) m/uL Hgb (13.0-17.5) gm/dL ABG pH (7.35-7.45) ABG pO2 (83-108) mmHg ABG HCO3 (21-25) mmol/L ABG Total CO2 (19-24) mmol/L ABG O2 Saturation (94-97) % Sodium 147 H 150 H (137-145) mmol/L Chloride (98-107) mmol/L Carbon Dioxide (22-30) mmol/L BUN (9-20) mg/dL Glucose (74-99) mg/dL POC Glucose (mg/dL) 111 H (75-99) mg/dL Osmolality 319 H 319 H (280-301) mosm/kg 07/20/20 07/20/20 07/20/20 Range/Units 03:30 05:30 05:30 WBC 15.6 H (3.8-10.6) k/uL RBC 4.09 L (4.30-5.90) m/uL Hgb 12.5 L (13.0-17.5) gm/dL ABG pH 7.47 H (7.35-7.45) ABG pO2 166 H (83-108) mmHg ABG HCO3 32 H (21-25) mmol/L ABG Total CO2 34 H (19-24) mmol/L ABG O2 Saturation 98.8 H (94-97) % Sodium 150 H (137-145) mmol/L Chloride 113 H (98-107) mmol/L Carbon Dioxide 34 H (22-30) mmol/L BUN 25 H (9-20) mg/dL Glucose 130 H (74-99) mg/dL POC Glucose (mg/dL) (75-99) mg/dL Osmolality (280-301) mosm/kg 07/20/20 07/20/20 07/20/20 Range/Units 05:39 12:00 16:08 WBC (3.8-10.6) k/uL RBC (4.30-5.90) m/uL Hgb (13.0-17.5) gm/dL ABG pH (7.35-7.45) ABG pO2 (83-108) mmHg ABG HCO3 (21-25) mmol/L ABG Total CO2 (19-24) mmol/L ABG O2 Saturation (94-97) % Sodium 152 H 151 H (137-145) mmol/L Chloride (98-107) mmol/L Carbon Dioxide (22-30) mmol/L BUN (9-20) mg/dL Glucose (74-99) mg/dL POC Glucose (mg/dL) 112 H (75-99) mg/dL Osmolality 321 H (280-301) mosm/kg
--- NOTE | 2020-07-20 18:02 | P.PN ---
Progress Note - Text Progress Note Date: 07/20/20 Advanced Care Planning: Diagnoses: Anoxic encephalopathy with cerebral edema Discussion: Person(s) present and participating in discussion: Juliette Summary:[ We had a detailed discussion of patient current neurologic status. That he has some very basic brainstem reflexes. That I do not think his brain will recover from this event. She wants to continue to give him time to see if he will recover. She would not want to trach and peg him at this point. We discussed DNR status. She initially wanted to consider the possibility. She then spoke with neurology and decided to make him a DNR. We will continue with daily updates. A total of 17 minutes of face to face time was spent discussing advanced care planning.
--- NOTE | 2020-07-20 18:04 | P.PN ---
Subjective Progress Note Date: 07/20/20 Patient was seen at bedside and he can decrease to be intubated on ventilator. He was on propofol and it was held for about 1 hour prior to my arrival. Patient was on propofol 30 mcg/kg/min. per the patient nurse the patient has brainstem reflexes bothered neck no spontaneous movement. No seizure-like a ctivity is noted. Patient continues not to be responding or following commands upon having the sedation off. Patient continues to be on 3% hypertonic saline and he is within the range of 145-155. Over the weekend the the primary team attempted to transfer the patient to a different facility because of the cerebral edema but he was declined by 2 facilities. Objective - Vital Signs Vital signs: Vital Signs Temp 98.7 F 07/20/20 13:00 Pulse 107 H 07/20/20 16:00 Resp 29 H 07/20/20 16:00 BP 118/79 07/20/20 08:00 Pulse Ox 93 L 07/20/20 16:00 Intake & Output 07/19/20 07/20/20 07/20/20 18:59 06:59 18:59 Intake Total 0917.676 8804.795 956.038 Output Total 1815 002 8961 Balance -132.806 619.795 -78.962 Weight 101.1 kg Intake: IV 270 273 283 0.9 NS 90 NS @ 75 130 110 10 Pressure bag 33 33 Sodium Chloride 3%( 130 50 Hypertonic) 500 ml @ 10 mls/hr IV .Q24H [facility] Rx#: [id number] Sodium Chloride 3%( 140 Hypertonic) 500 ml @ 40 mls/hr IV .[id number] ONE Rx #:[id number] levETIRAcetam IV 500 mg 100 In Sodium Chloride 0.9% 100 ml @ 400 mls/hr IVPB Q12HR [facility] Rx#:[id number] Intake, IV Titration 182.194 181.795 63.038 Amount propofoL 1,000 mg In 182.194 181.795 63.038 Empty Bag 1 bag @ Titrate IV .Q0M [facility] Rx#: [id number] Tube Feeding 540 585 540 Lipid 10 Sodium Chloride 3%( 10 Hypertonic) 500 ml @ 10 mls/hr IV .Q24H [facility] Rx#: [id number] Other 90 90 60 Output: Urine 0923 665 6646 Other: Voiding Method Indwelling Catheter Indwelling Catheter Indwelling Catheter ABP, PAP, CO, CI - Last Documented Arterial Blood Pressure 114/62 - Exam GENERAL: The patient is intubated on ventilator and on IV Propofol drip--held for 30 minutes prior to arrival. HENT: Neck is supple. Left forehead has slight edema from fall. NEUROLOGICAL: Limited because of patient's condition Higher mental function: The patient is comatose. GCS 5 (E3, V1, M1). Not following commands or attempting to verbalize. Pupils are rounds and are about 3-4mm bilaterally and sluggishly reactive to light. Primary gaze is looking downward and there seem to be vertical nystagmuss. +ve corneal reflex bilaterally. +Positive gag and cough reflex. No facial weakness. Motor: Strength unable to assess because of patient's condition. No spontaneous movement noted. No posturing is noted. Sensation: Could not be assessed. Reflexes: 1+ throughout. Plantars are mute bilaterally. - Labs CBC & Chem 7: 07/20/20 05:30 07/20/20 16:08 Labs: Abnormal Lab Results - Last 24 Hours (Table) 07/19/20 07/19/20 07/19/20 Range/Units 18:23 23:45 23:45 WBC (3.8-10.6) k/uL RBC (4.30-5.90) m/uL Hgb (13.0-17.5) gm/dL ABG pH (7.35-7.45) ABG pO2 (83-108) mmHg ABG HCO3 (21-25) mmol/L ABG Total CO2 (19-24) mmol/L ABG O2 Saturation (94-97) % Sodium 147 H 150 H (137-145) mmol/L Chloride (98-107) mmol/L Carbon Dioxide (22-30) mmol/L BUN (9-20) mg/dL Glucose (74-99) mg/dL POC Glucose (mg/dL) 111 H (75-99) mg/dL Osmolality 319 H 319 H (280-301) mosm/kg 07/20/20 07/20/20 07/20/20 Range/Units 03:30 05:30 05:30 WBC 15.6 H (3.8-10.6) k/uL RBC 4.09 L (4.30-5.90) m/uL Hgb 12.5 L (13.0-17.5) gm/dL ABG pH 7.47 H (7.35-7.45) ABG pO2 166 H (83-108) mmHg ABG HCO3 32 H (21-25) mmol/L ABG Total CO2 34 H (19-24) mmol/L ABG O2 Saturation 98.8 H (94-97) % Sodium 150 H (137-145) mmol/L Chloride 113 H (98-107) mmol/L Carbon Dioxide 34 H (22-30) mmol/L BUN 25 H (9-20) mg/dL Glucose 130 H (74-99) mg/dL POC Glucose (mg/dL) (75-99) mg/dL Osmolality (280-301) mosm/kg 07/20/20 07/20/20 07/20/20 Range/Units 05:39 12:00 16:08 WBC (3.8-10.6) k/uL RBC (4.30-5.90) m/uL Hgb (13.0-17.5) gm/dL ABG pH (7.35-7.45) ABG pO2 (83-108) mmHg ABG HCO3 (21-25) mmol/L ABG Total CO2 (19-24) mmol/L ABG O2 Saturation (94-97) % Sodium 152 H 151 H (137-145) mmol/L Chloride (98-107) mmol/L Carbon Dioxide (22-30) mmol/L BUN (9-20) mg/dL Glucose (74-99) mg/dL POC Glucose (mg/dL) 112 H (75-99) mg/dL Osmolality 321 H (280-301) mosm/kg Assessment and Plan Assessment: This is a 54 year-old gentleman with history of pulmonary fibrosis who presented to the emergency department on 07/15/2020 because of cardiac arrest at home lasting 20 minutes. CPR was started and he was in V-fib and received shocked by EMS. As result he was intubated and on ventilaror. EKG showed STEMI Anoxic brain injury due to cardiac arrest Encephalopathy the due primarily anoxic brain injury from his cardiac arrest and elevated LFT, current sedation (on IV Propofol) Hypernatremia due to hypertonic saline. Cardiac arrest lasting 20 minutes STEMI status post PCI Elevated troponin due to above Leukocystosis--likely reactive Acute hypoxic respiratory failure requiring mechanical ventilation Acute kidney injury--resolved Elevated liver function tests due to above (like as shock to liver)---improving History of pulmonary fibrosis Plan: CT of the head: No acute intracranial abnormality. Repeat CT of the head on the 07/19/2020 was reported as no acute hemorrhage, hydrocephalus or mass effect. Unchanged. Diffuse cerebral edema. I'll repeat the CT of the head for tomorrow at 4:30am in the morning EEG on 07/17/2020: The background slowing suggestive of mild to moderate encephalopathy. There are no focal slowing, epileptiform discharges or seizure seen during the study. Excessive fast activity is a likely due to medication (sedation) effect. Ordered routine EEG 07/20/20 pre-liminary report: The study was obscured because of signfiicant artificant throughout the study. There are few EPOCS without myogenic artificat and no seizure or epileptiform discharges seen. Will repeat EEG tomorrow and will attempt to give patient NIMBEX prior to the study. Because of the patient the vertical nystagmus. I start the patient on prophyl axis Keppra 500 mg twice a day. Continue 3% with the goal of sodium between 145-155. Sodium checks every 4-6 hours. Cardiology is on board. Patient is currently on aspirin 81 mg 's well as the Berlant 90 mg twice a day started by cardiology. I'll defer the medical managements and the respiratory management to the primary team/ICU team. I spoke with the patient's (Francisca) in person and notified about the patient condition and that the patient has brainstem function but no cerebral function since presentation. I notified her that the patient did suffer an anoxic brain injury from the cardiac arrest. The patient stated that she will everything to be done and then she'll reev aluate her decision this coming Monday or Monday. Patient does not want the patient to get a trach and she was to hold off as much as possible. She said that if the patient has another cardiac event, then she does not know any further intervention on him. The plan was discussed with ICU team and primary team. Jose Villa M.D. Neuro-hospitalist Time with Patient: Greater than 30
[2020-07-20 18:40] LABS: Glucose,Whole Blood 118 mg/dL (75-99)
--- NOTE | 2020-07-20 18:51 | PN ---
PROGRESS NOTE PULMONARY/CRITICAL CARE PROGRESS NOTE: DATE OF SERVICE: July 20, 2020 Critical care time: 34 minutes. This is a 54-year-old gentleman who was admitted back on July 15. He came with a cardiopulmonary arrest and an ST-segment elevation myocardial infarction. He went to the botany laboratory assistant and had a stent placed to the LAD. He had a prolonged period of resuscitation lasting 20-40 minutes before he had return of spontaneous circulation. The patient was intubated on the same day, July 15. He remains on the mechanical ventilator. He is on the volume assist-control mode rate of 18, tidal volume 450, FiO2 35% to be dropped to 30% and a PEEP of 5. Blood gases show pO2 of 166, PCO2 of 45 and a pH of 7.46. He is on saline at KVO. 3% saline at 10 mL an hour, Diprivan is currently off. Vital high-protein at 45 with a goal of 45. He apparently is showing significant cerebral edema on CT scans. That is the reason for the 3% saline. An EEG was ordered. He has been seen by Dr. Jose Villa the neurologist. The patient could be a candidate for tracheostomy and PEG tube should the want to continue with full support at this time. Overall prognosis though remains very poor. PHYSICAL EXAMINATION: VITAL SIGNS: Current vital signs are reviewed. Temperature is 98.7, heart rate 99, respiratory rate 29, blood pressure 116/63, and saturations are 92-94%. GENERAL: Appears in no acute distress. HEENT: Examination is grossly unremarkable. NECK: Supple. Full range of motion. No adenopathy. Neck veins are flat. He does have an orally placed endotracheal tube and NG tube. CARDIOVASCULAR: Examination reveals tachycardia. Heart rate 106. S1, S2 normal. LUNGS: Reveal some bibasilar crackles. Breath sounds equal. ABDOMEN: Soft. Bowel sounds are noted. EXTREMITIES are intact. No cyanosis or edema. There is clubbing of the hands and feet. SKIN is without rash. NEUROLOGIC: Examination cannot be adequately assessed. He is poorly responsive/unresponsive. LABORATORY DATA: Reviewed. White count 15.6, hemoglobin 12.5, hematocrit 39.7, platelet count 326,000, blood gases have been noted. PO2 166, pCO2 45, pH of 7.47. This blood gas is consistent with a metabolic alkalosis and hyperoxia. Sodium 150, potassium 3.5, chloride 113, CO2 34, anion gap is 3 BUN and creatinine were 35 and 0.86. Calcium 8.2. Microbiology is currently negative. A chest x-ray today shows changes of interstitial lung disease/pulmonary fibrosis. CURRENT MEDICATIONS: Reviewed. The patient is on Tylenol, Artificial Tears, aspirin, chlorhexidine, Lasix, Keppra, Maalox, metoprolol, Narcan, Protonix, propofol, and Brilinta. In addition, the patient is on saline at KVO, 3% saline at 10 mL an hour, Diprivan p.r.n., and Vital high-protein at goal which is 45 mL an hour. ASSESSMENT: 1. Status post cardiopulmonary arrest on July 15, with prolonged cardiopulmonary resuscitation and eventual return of spontaneous circulation. 2. ST-segment elevation myocardial infarction. 3. Status post stent, to the LAD. 4. Rule out anoxic brain injury secondary to prolonged resuscitation. 5. Acute hypoxemic respiratory failure. 6. Idiopathic pulmonary fibrosis, apparently listed for lung transplantation at [facility]. 7. History of chronic tobacco dependence. 8. Diffuse cerebral edema secondary to anoxic brain injury/cardiopulmonary arrest. 9. 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 PLAN: The patient's FiO2 was dropped from 35%-30%. The patient will have propofol as needed. The patient is being nourished with Vital high-protein at goal which is 45 mL an hour. The patient will have a repeat EEG. If the family wants to continue and persist with mechanical ventilation, I think tracheostomy and PEG tube should be done right away. No additional recommendations are made. Overall prognosis is very poor. We will continue to follow. We will have discussions with the family as well. Critical care time 34 minutes. MMODL / IJN: [id number] /
--- NOTE | 2020-07-20 19:36 | EEG ---
ELECTROENCEPHALOGRAM REPORT DATE OF SERVICE: 07/20/2020 CLINICAL HISTORY: This is a 54-year-old gentleman who presents with a history of pulmonary fibrosis who presented to the emergency department on 07/15/2020 after cardiac arrest lasting 20 minutes. The patient has altered mental status. The video EEG was obtained to evaluate procedures and epileptiform activity. RELEVANT MEDICATION: IV propofol. EEG TYPE: A routine 21 channel was performed with video using the 10/20 electrode placement system. DESCRIPTION: The patient is intubated on ventilators and on IV sedation. For the most part, the entire EEG is obscured by myogenic artifact over bilateral hemisphere. There are very few EPOCS where there is minimal myogenic artifact and there was no appreciable activity seen. INTERICTAL AND ICTAL: None. ACTIVATION PROCEDURES: Photic stimulation was not performed. Hyperventilation was not performed. CLINICAL INTERPRETATION: This is an abnormal routine EEG. The EEG was obscured predominantly because of myogenic artifact throughout the study. There is no appreciated epileptiform discharges or seizure seen on few EPOCS where no myogenic artifact. Recommend repeating a routine EEG. Clinical correlation is recommended. MMODL / IJN: [id number] / MTDD
[2020-07-20] MEDS: SODIUM CHLORIDE 3%(HYPERTONIC) 500 ML IV SCH (20:08)
[2020-07-21 00:16] LABS: Glucose,Whole Blood 106 mg/dL (75-99)
[2020-07-21 04:33] LABS: ABG Base Excess 8.7 mmol/L; ABG HCO3 32 mmol/L (21-25); ABG Oxygen Saturation 97.8 % (94-97); ABG PCO2 42 mmHg (35-45); ABG PH 7.49 (7.35-7.45); ABG PO2 109 mmHg (83-108); ABG TCO2 33 mmol/L (19-24); Allen Test Performed? Yes
--- NOTE | 2020-07-21 04:33 | CT ---
EXAM: CT Head Without Intravenous Contrast CLINICAL HISTORY: ITS.REASON CT Reason: cerebral edema TECHNIQUE: Axial computed tomography images of the head/brain without intravenous contrast. CTDI is 49.1 mGy and DLP is 1209.4 mGy-cm. This CT exam was performed using one or more of the following dose reduction techniques: automated exposure control, adjustment of the mA and/or kV according to patient size, and/or use of iterative reconstruction technique. COMPARISON: July 19, [address] head from July 15, 2020 FINDINGS: Brain: There is loss of vega and white matter differentiation and effacement of the sulci over the posterior aspect of the frontal lobes and parietal lobes bilaterally, unchanged since July 19, 2020 but increased compared to July 15, 2020. The etiology is unknown, possible infarct or edema. Consider MRI for further characterization if not already performed. No hemorrhage. Ventricles: Unremarkable. No ventriculomegaly. Bones/joints: Unremarkable. No acute fracture. Soft tissues: Unremarkable. Sinuses: The sphenoid sinuses demonstrate mild mucosal thickening similar to previous. Mastoid air cells: Unremarkable as visualized. No mastoid effusion. IMPRESSION: There is loss of vega and white matter differentiation and effacement of the sulci over the posterior aspect of the frontal lobes and parietal lobes bilaterally, unchanged since July 19, 2020 but increased compared to July 15, 2020. The etiology is unknown, possible infarct or edema. Consider MRI for further characterization if not already performed.
[2020-07-21 04:37] LABS: HCT 43.2 % (39.0-53.0); HGB 14.1 gm/dL (13.0-17.5); MCH 31.5 pg (25.0-35.0); MCHC 32.6 g/dL (31.0-37.0); MCV 96.6 fL (80.0-100.0); Mean Platelet Volume 7.4; Platelet Count 335 k/uL (150-450); RBC 4.47 m/uL (4.30-5.90); RDW 13.7 % (11.5-15.5); WBC 20.2 k/uL (3.8-10.6)
[2020-07-21 04:49] LABS: African American GFR (CKD) >90 (>60 ml/min/1.73 sqM); Anion Gap 5 mmol/L; Blood Urea Nitrogen 28 mg/dL (9-20); Calcium 9.5 mg/dL (8.4-10.2); Carbon Dioxide 33 mmol/L (22-30); Chloride 113 mmol/L (98-107); Glucose 123 mg/dL (74-99); Non-African American GFR(CKD) 89 (>60 ml/min/1.73 sqM); Potassium 3.7 mmol/L (3.5-5.1); Sodium 151 mmol/L (137-145)
[2020-07-21 06:51] LABS: Glucose,Whole Blood 99 mg/dL (75-99)
--- NOTE | 2020-07-21 07:17 | XR ---
EXAMINATION TYPE: XR chest 1V portable DATE OF EXAM: 07/21/2020 CLINICAL HISTORY: Difficulty breathing progress study. TECHNIQUE: Single AP portable semiupright view of the chest is obtained. COMPARISON: Chest x-ray from one day earlier and older studies. FINDINGS: Stable endotracheal tube, orogastric tube, and right subclavian central venous catheter. Reticular and alveolar increased markings bilaterally remain present . Cardiac silhouette size is enl arged. Multilevel spurring in the mid to lower thoracic spine is redemonstrated. No pleural effusion or pneumothorax noted. IMPRESSION: Persistent bilateral bilateral multifocal infiltrates and/or edema. No significant change from most recent x-ray.
[2020-07-21] MEDS ORDERED: CISATRACURIUM 2 MG/ML 5 ML VIAL IV ONE (08:20)
[2020-07-21] MEDS: CHLORHEXIDINE GLUCONATE 15 ML CUP MUCOUS MEM SCH ×2 (08:47→20:19)
[2020-07-21] MEDS: ASPIRIN 81 MG PO SCH (08:47)
[2020-07-21] MEDS: METOPROLOL TARTRATE 25 MG TAB PO SCH ×2 (08:47→20:19)
[2020-07-21] MEDS: TICAGRELOR 90 MG TAB PO SCH ×2 (08:47→20:19)
[2020-07-21] MEDS: FUROSEMIDE 10 MG/ML 4 ML VIAL IV SCH (08:47)
[2020-07-21] MEDS: PANTOPRAZOLE 40 MG/10 ML VIAL IV SCH (08:48)
[2020-07-21] MEDS: levETIRAcetam IV 500 MG in SODIUM CHLORIDE 0.9% 100 ML IVPB SCH (09:06)
--- NOTE | 2020-07-21 11:09 | P.PN ---
Subjective Progress Note Date: 07/21/20 Principal diagnosis: Acute cardiopulmonary arrest, anoxic brain injury This is a 54-year-old male patient with known history of pulmonary fibrosis and apparently is on the transplant list at the [facility]. He was supposed to have a pulmonary function tests done today however he was not feeling well. He was complaining of indigestion and developed worsening shor tness of breath and his heart rate was 44. Before the was able to call EMS he collapsed at home. He was found to be in ventricular fibrillation and was shocked twice by the fire department. Upon arrival by EMS he was still in ventricular fibrillation had 4 more shocks 3 of epinephrine and bolused with amiodarone. He did develop return of spontaneous circulation and brought here to the emergency room. EKG revealed ST segment elevation in the lateral leads and the patient was subsequently taken emergently to [facility]. He had undergone stenting to the mid LAD lesion that was 90% stenosed. He remained intubated on mechanical ventilator and return to the intensive care unit where he is seen today in consultation. Computed tomography scan of the brain revealed no acute intracranial abnormality. Current vent settings are assist control at a rate of 18, tidal volume 450, FiO2 40% and a PEEP of 5 and arterial blood gases on 100% FiO2 revealed a pO2 greater than 400, pCO2 43 and a pH of 7.22. White count 46. Hemoglobin 16.3. Platelets 385. Sodium 137. Potassium 4.2. Creatinine 1.53. Glucose 288. AST 225. ALT 114. Troponin 2.63. Echocardiogram pending. Currently on propofol at 30 mcg/kg/m. Heparin drip. He was initiated on Brilinta. Patient was reevaluated today on 07/16/20, patient remains in the ICU, intubated and mechanically ventilated. He is on assist control rate of 18 tidal volume is 450 FiO2 is 40% and PEEP of 5 ABG showed a pO2 of 129 pCO2 of 34 pH of 7.40. Patient is presently on propofol at 10 mcg/kg/m. Chest x-ray showed interstitial lung disease, cannot rule out underlying congestive heart failure, however I did recommend one dose of Lasix 40 mg IV push 1. Patient is not responsive to any stimuli, opens eyes only there is downward gaze deviation. Breathing over the ventilator set rate all labs were reviewed chest x-ray was also reviewed and the patient will be started on enteral feeding. Patient was reevaluated today on 07/17/20, remains in the ICU, intubated, and mechanically ventilated. His ventilator settings are assist control rate of 18 tidal volume is 450 FiO2 is 40% and PEEP is 5. ABG showed a pO2 of 161 pCO2 of 39 pH of 7.45. Patient was on minimal dose of propofol at 30 mcg/kg/m, however I recommended that we hold propofol this morning, and would like to assess mental status again off propofol. Patient is also scheduled to have EGD this morning. Patient is not responding to any commands, no gaze deviation noted today. At times noted by nurses that he was biting on the endotracheal tube had to be placed on small amount of sedation. Chest x-ray continues to show diffuse interstitial lung disease consistent with pulmonary fibrosis. His WBC count today is 20 hemoglobin is 14.2 hematocrit is 42. Electrolytes are normal, renal profile is normal. Liver enzymes, are borderline elevated/AST and ALP. Ammonia level is normal. Patient was reevaluated today on 07/18/20, remains intubated and mechanically ventilated. Patient is presently on assist control rate of 18 tidal volume is 450 FiO2 40% and PEEP is 5. ABG showed a pO2 of 97 pCO2 41 pH of 7.44. Patient is now off propofol, he was on 20 mcg/kg/m, and the plan is to hold off propofol lung enough to continue to assess mental status. Patient remains unresponsive to any stimuli. CT of the brain yesterday showed diffuse cerebral edema, and he is down placed on mannitol by neurology at 1 g/kg loading dose, and he was placed on 3% hypertonic saline at 40 mL per hour. The goal is to reach a sodium of 145-155. Considering the patient has poor IV access, went ahead and placed a right subclavian central line. Also placed a left radial arterial line for hemodynamic monitoring. Chest x-ray continues to show evidence of pulmonary f ibrosis. Consistent with usual interstitial pneumonitis/UIP. Labs today showed WBC of 16 hemoglobin is 13.0. Celexa lites are normal renal profile is normal. Patient was reevaluated today on 07/19/20, remains intubated and mechanically ventilated. Patient is on assist control rate of 18 tidal volume is 450 FiO2 is 40% and PEEP of 5 . Patient remains unresponsive, has been off propofol for the last 24 hours, and no responses whatsoever except opening eyes on his own intermittently. Does not respond to any verbal or painful stimuli. His ABG today showed a pO2 of 130 pCO2 of 43 pH of 7.45. Patient is not requiring any pressors, he is done with the mannitol effusion, and he is now on 3% saline as recommended by neurology to get his sodium up to the low [address] of the brain showed no change continues to have cerebral edema in spite of mannitol and in spite of hypertonic saline. Then urologist who was on the case is recommending transferring the patient to [facility], however considering his overall clinical status, I don't believe he will be accepted at [facility], the admitting physician will try and discussed the case with the transfer team at [facility], but again I have a feeling that the patient will not be accepted. Patient is on enteral feeding up to goal. Chest x-ray today showed no change, patient has clearly severe interstitial lung disease consistent with usual interstitial pneumonitis. On 07/21/2020 patient seen in follow-up in intensive care unit, he remains intubated, currently on assist control mode of ventilation with a rate of 18, tidal volume is 450, FiO2 of 30%, and PEEP of 5, despite his blood gases showed pO2 of 109, pCO2 42, and pH of 7.49, IV fluids. Patient has remained unresponsive, his been off the Diprivan and drip, he is currently on 3% hypertonic saline at a rate of 10 ML per hour for cerebral edema, point and was seen at a rate of 10 ML per hour, no other drips, nutritional support in the form of vital high protein at 45 ML per hour with a goal of 45. Neurology is following, patient has not woken up and followed any command, he is breathing over the ventilator, not following any commands, no spontaneous movement. No seizure-like activity noted. Repeat brain CT shows loss of vega and white matter differentiation and effacement of the salt diet over the posterior aspect of the frontal lobes and parietal lobes bilaterally, unchanged since 07/19/2020 with etiology possibly related to cerebral edema. EEG showed no epileptiform discharges. Chest x-ray today shows persistent bilateral multifocal infiltrates with no change from the most recent study. he has been afebrile, he modynamically stable, not requiring any vasopressor support. Remains on Lasix daily, 40 mg, he is positive almost 300 mL over the last 24 hours. Objective - Vital Signs Vital signs: Vital Signs Temp 98.2 F 07/21/20 08:00 Pulse 95 07/21/20 10:00 Resp 33 H 07/21/20 10:00 BP 113/80 07/21/20 07:00 Pulse Ox 90 L 07/21/20 10:00 Intake & Output 07/20/20 07/21/20 07/21/20 18:59 06:59 18:59 Intake Total 7725.709 5378.06 532.935 Output Total 1215 660 195 Balance -145.509 440.06 337.935 Weight 100 kg Intake: IV 319 346 192 0.9 NS 110 120 40 NS @ 75 10 Pressure bag 39 36 12 Sodium Chloride 3%( 60 90 40 Hypertonic) 500 ml @ 5 mls/hr IV .Q24H [facility] Rx#: [id number] levETIRAcetam IV 500 mg 100 100 100 In Sodium Chloride 0.9% 100 ml @ 400 mls/hr IVPB Q12HR [facility] Rx#:[id number] Intake, IV Titration 95.491 79.06 85.935 Amount propofoL 1,000 mg In 95.491 79.06 85.935 Empty Bag 1 bag @ Titrate IV .Q0M [facility] Rx#: [id number] Tube Feeding 585 585 225 Lipid 10 Sodium Chloride 3%( 10 Hypertonic) 500 ml @ 5 mls/hr IV .Q24H [facility] Rx#: [id number] Other 60 90 30 Output: Urine 1215 660 195 Other: Voiding Method Indwelling Catheter Indwelling Catheter ABP, PAP, CO, CI - Last Documented Arterial Blood Pressure 127/67 - Exam GENERAL EXAM: Today, sedated, 54-year-old white male on assist control mode of ventilation, off sedation, however not following any commands, not spontaneously responding, coughing a lot, breathing over the ventilator, dyssynchronous, comfortable in no apparent distress. HEAD: Normocephalic/atraumatic. EYES: Normal reaction of pupils, equal size. Conjunctiva pink, sclera white. NOSE: Clear with pink turbinates. THROAT: No erythema or exudates. NECK: No masses, no JVD, no thyroid enlargement, no adenopathy. CHEST: No chest wall deformity. Symmetrical expansion. LUNGS: Equal air entry with no crackles, wheeze, rhonchi or dullness. CVS: Regular rate and rhythm, normal S1 and S2, no gallops, no murmurs, no rubs ABDOMEN: Soft, nontender. No hepatosplenomegaly, normal bowel sounds, no guarding or rigidity. EXTREMITIES: No clubbing, no edema, no cyanosis, 2+ pulses and upper and lower extremities. MUSCULOSKELETAL: Muscle strength and tone normal. SPINE: No scoliosis or deformity SKIN: No rashes CENTRAL NERVOUS SYSTEM: Does not follow command, cephalopathic, breathes over the ventilator, no spontaneous eye contact, or movement - Labs CBC & Chem 7: 07/21/20 04:25 07/21/20 08:00 Labs: Abnormal Lab Results - Last 24 Hours (Table) 07/20/20 07/20/20 07/20/20 Range/Units 12:00 16:08 18:38 WBC (3.8-10.6) k/uL ABG pH (7.35-7.45) ABG pO2 (83-108) mmHg ABG HCO3 (21-25) mmol/L ABG Total CO2 (19-24) mmol/L ABG O2 Saturation (94-97) % Sodium 152 H 151 H (137-145) mmol/L Chloride (98-107) mmol/L Carbon Dioxide (22-30) mmol/L BUN (9-20) mg/dL Glucose (74-99) mg/dL POC Glucose (mg/dL) 118 H (75-99) mg/dL Osmolality 321 H (280-301) mosm/kg 07/20/20 07/21/20 07/21/20 Range/Units 20:30 00:15 00:18 WBC (3.8-10.6) k/uL ABG pH (7.35-7.45) ABG pO2 (83-108) mmHg ABG HCO3 (21-25) mmol/L ABG Total CO2 (19-24) mmol/L ABG O2 Saturation (94-97) % Sodium 151 H 151 H (137-145) mmol/L Chloride (98-107) mmol/L Carbon Dioxide (22-30) mmol/L BUN (9-20) mg/dL Glucose (74-99) mg/dL POC Glucose (mg/dL) 106 H (75-99) mg/dL Osmolality (280-301) mosm/kg 07/21/20 07/21/20 07/21/20 Range/Units 04:25 04:25 04:28 WBC 20.2 H (3.8-10.6) k/uL ABG pH 7.49 H (7.35-7.45) ABG pO2 109 H (83-108) mmHg ABG HCO3 32 H (21-25) mmol/L ABG Total CO2 33 H (19-24) mmol/L ABG O2 Saturation 97.8 H (94-97) % Sodium 151 H (137-145) mmol/L Chloride 113 H (98-107) mmol/L Carbon Dioxide 33 H (22-30) mmol/L BUN 28 H (9-20) mg/dL Glucose 123 H (74-99) mg/dL POC Glucose (mg/dL) (75-99) mg/dL Osmolality (280-301) mosm/kg 07/21/20 Range/Units 08:00 WBC (3.8-10.6) k/uL ABG pH (7.35-7.45) ABG pO2 (83-108) mmHg ABG HCO3 (21-25) mmol/L ABG Total CO2 (19-24) mmol/L ABG O2 Saturation (94-97) % Sodium 152 H (137-145) mmol/L Chloride (98-107) mmol/L Carbon Dioxide (22-30) mmol/L BUN (9-20) mg/dL Glucose (74-99) mg/dL POC Glucose (mg/dL) (75-99) mg/dL Osmolality (280-301) mosm/kg Assessment and Plan Plan: Assessment: #1. Acute cardiopulmonary arrest secondary to acute ST elevated myocardial infarction, prolonged downtime/CPR including several different ablations with return of spontaneous circulation. Patient was intubated on 07/15/2020 upon presentation, maintained intubated today on 07/21/2020 related to no improvement in his neurological status #2. Acute anoxic brain injury and anoxic metabolic encephalopathy, with no signs of neurological recovery since admission. #3. Diffuse cerebral edema secondary to anoxic brain injury and cardiac arrest, on hypertonic saline, patient has received mannitol #4. Hypernatremia related to hypertonic saline infusion #5. Coronary artery disease with 90% occlusion of the mid LAD, status post stent placement #6. Acute hypoxic respiratory failure related to cardiac arrest requiring intubation and mechanical ventilation #7. History of severe idiopathic pulmonary fibrosis/UIP supposedly the patient was on the list for lung transplant at the [facility] #8. History of chronic tobacco dependence #9. Severe clubbing secondary to underlying interstitial lung disease/UIP Plan: Continue current medical treatment, neurology is following, patient remains on hypertonic saline, however despite hypertonic saline infusion and mannitol inf fusion patient has not made any significant neurological recovery thus far. His chest x-ray has been reviewed, showing stable findings with persistent bilateral multifocal infiltrates related to underlying history of UIP. The blood and sputum culture will be sent, monitor febrile pattern. Continue same vent settings, drop FiO2 down to 25%. Repeat EEG today, neurology is closely following, patient's was updated on patient's condition, she wants to continue with a full code right now, we recommended early tracheostomy and PEG tube placement, we'll consult surgical services Dr. Crockett for placement of tracheostomy and PEG tube placement as soon as possible. Continue nutritional support, GI and DVT prophylaxis, will follow I performed a history & physical examination of the patient and discussed their management with my nurse practitioner, Aliyah Rodriguez. I reviewed the nurse practitioner's note and agree with the documented findings and plan of care. Lung sounds are positive for diffuse crackles. The findings and the impression was discussed with the patient. I attest to the documentation by the nurse practitioner. Time with Patient: Greater than 30
[2020-07-21 11:22] VITALS: BMI 31.6
--- NOTE | 2020-07-21 12:07 | P.PN ---
Subjective Progress Note Date: 07/21/20 This is a 54-year-old gentleman with known history of pulmonary fibrosis, he was also on the transplant list at [facility]. Complained of indigestion and shortness of breath on presentation here, before his was able to call EMS he collapsed at home. He was found to be in ventricular fibrillation and was shocked by the fire department, and then again subsequently 4 times by EMS. He developed return of spontaneous circulation, was brought here to the emergency room. His EKG on presentation here showed ST segment elevation in the lateral leads, patient was taken to the cardiac catheterization lab where he underwent stenting of the mid LAD. He remains intubated on mechanical ventilation in the intensive care unit this morning. Patient has remained unresponsive since his arrival here, he is off of the present and. Neurology is following, patient has not woken up and followed any commands he is breathing over the ventilator, no spontaneous movement, no seizure activity. His repeat brain CT shows loss of vega and white matter differentiation and effacement of the sulci over the pposterior aspect of the frontal lobes and parietal lobes bilaterally, but increase as compared with July 15. Chest x-ray shows persistent bilateral multifocal infiltrates. He has been afebrile, hemodynamically stable, not requiring any vasopressor support. Objective - Vital Signs Vital signs: Vital Signs Temp 98.2 F 07/21/20 08:00 Pulse 101 H 07/21/20 11:00 Resp 26 H 07/21/20 11:00 BP 113/80 07/21/20 07:00 Pulse Ox 92 L 07/21/20 11:00 Intake & Output 07/20/20 07/21/20 07/21/20 18:59 06:59 18:59 Intake Total 5631.198 4761.06 590.935 Output Total 1215 660 255 Balance -145.509 440.06 335.935 Weight 100 kg 100 kg Intake: IV 319 346 205 0.9 NS 110 120 50 NS @ 75 10 Pressure bag 39 36 15 Sodium Chloride 3%( 60 90 40 Hypertonic) 500 ml @ 5 mls/hr IV .Q24H [facility] Rx#: [id number] levETIRAcetam IV 500 mg 100 100 100 In Sodium Chloride 0.9% 100 ml @ 400 mls/hr IVPB Q12HR [facility] Rx#:[id number] Intake, IV Titration 95.491 79.06 85.935 Amount propofoL 1,000 mg In 95.491 79.06 85.935 Empty Bag 1 bag @ Titrate IV .Q0M [facility] Rx#: [id number] Tube Feeding 585 585 270 Lipid 10 Sodium Chloride 3%( 10 Hypertonic) 500 ml @ 5 mls/hr IV .Q24H [facility] Rx#: [id number] Other 60 90 30 Output: Urine 1215 660 255 Other: Voiding Method Indwelling Catheter Indwelling Catheter Indwelling Catheter ABP, PAP, CO, CI - Last Documented Arterial Blood Pressure 118/64 - Exam GENERAL EXAM: Today, sedated, 54-year-old white male on assist control mode of ventilation, off sedation, however not following any commands, not spontaneously responding, coughing a lot, breathing over the ventilator, dyssynchronous, comfortable in no apparent distress. HEAD: Normocephalic/atraumatic. EYES: Normal reaction of pupils, equal size. Conjunctiva pink, sclera white. NOSE: Clear with pink turbinates. THROAT: No erythema or exudates. NECK: No masses, no JVD, no thyroid enlargement, no adenopathy. CHEST: No chest wall deformity. Symmetrical expansion. LUNGS: Equal air entry with no crackles, wheeze, rhonchi or dullness. CVS: Regular rate and rhythm, normal S1 and S2, no gallops, no murmurs, no rubs ABDOMEN: Soft, nontender. No hepatosplenomegaly, normal bowel sounds, no guarding or rigidity. EXTREMITIES: No clubbing, no edema, no cyanosis, 2+ pulses and upper and lower extremities. MUSCULOSKELETAL: Muscle strength and tone normal. SPINE: No scoliosis or deformity SKIN: No rashes CENTRAL NERVOUS SYSTEM: Does not follow command, cephalopathic, breathes over the ventilator, no spontaneous eye contact, or movement - Labs CBC & Chem 7: 07/21/20 04:25 07/21/20 08:00 Labs: Abnormal Lab Results - Last 24 Hours (Table) 07/20/20 07/20/20 07/20/20 Range/Units 12:00 16:08 18:38 WBC (3.8-10.6) k/uL ABG pH (7.35-7.45) ABG pO2 (83-108) mmHg ABG HCO3 (21-25) mmol/L ABG Total CO2 (19-24) mmol/L ABG O2 Saturation (94-97) % Sodium 152 H 151 H (137-145) mmol/L Chloride (98-107) mmol/L Carbon Dioxide (22-30) mmol/L BUN (9-20) mg/dL Glucose (74-99) mg/dL POC Glucose (mg/dL) 118 H (75-99) mg/dL Osmolality 321 H (280-301) mosm/kg 07/20/20 07/21/20 07/21/20 Range/Units 20:30 00:15 00:18 WBC (3.8-10.6) k/uL ABG pH (7.35-7.45) ABG pO2 (83-108) mmHg ABG HCO3 (21-25) mmol/L ABG Total CO2 (19-24) mmol/L ABG O2 Saturation (94-97) % Sodium 151 H 151 H (137-145) mmol/L Chloride (98-107) mmol/L Carbon Dioxide (22-30) mmol/L BUN (9-20) mg/dL Glucose (74-99) mg/dL POC Glucose (mg/dL) 106 H (75-99) mg/dL Osmolality (280-301) mosm/kg 07/21/20 07/21/20 07/21/20 Range/Units 04:25 04:25 04:28 WBC 20.2 H (3.8-10.6) k/uL ABG pH 7.49 H (7.35-7.45) ABG pO2 109 H (83-108) mmHg ABG HCO3 32 H (21-25) mmol/L ABG Total CO2 33 H (19-24) mmol/L ABG O2 Saturation 97.8 H (94-97) % Sodium 151 H (137-145) mmol/L Chloride 113 H (98-107) mmol/L Carbon Dioxide 33 H (22-30) mmol/L BUN 28 H (9-20) mg/dL Glucose 123 H (74-99) mg/dL POC Glucose (mg/dL) (75-99) mg/dL Osmolality (280-301) mosm/kg 07/21/20 Range/Units 08:00 WBC (3.8-10.6) k/uL ABG pH (7.35-7.45) ABG pO2 (83-108) mmHg ABG HCO3 (21-25) mmol/L ABG Total CO2 (19-24) mmol/L ABG O2 Saturation (94-97) % Sodium 152 H (137-145) mmol/L Chloride (98-107) mmol/L Carbon Dioxide (22-30) mmol/L BUN (9-20) mg/dL Glucose (74-99) mg/dL POC Glucose (mg/dL) (75-99) mg/dL Osmolality (280-301) mosm/kg Assessment and Plan Plan: Assessment and Plan : #1. Acute cardiopulmonary arrest secondary to acute ST elevated myocardial infarction, LAD stenting, prolonged downtime/CPR including several different ablations with return of spontaneous circulation. Patient was intubated on 07/15/2020 upon presentation, maintained intubated today on 07/21/2020 related to no improvement in his neurological status #2. Acute anoxic brain injury and anoxic metabolic encephalopathy, with no signs of neurological recovery since admission. #3. Diffuse cerebral edema secondary to anoxic brain injury and cardiac arrest, on hypertonic saline, patient has received mannitol #4. Hypernatremia related to hypertonic saline infusion #5. Coronary artery disease with 90% occlusion of the mid LAD, status post stent placement #6. Acute hypoxic respiratory failure related to cardiac arrest requiring intubation and mechanical ventilation #7. History of severe idiopathic pulmonary fibrosis/UIP supposedly the patient was on the list for lung transplant at the [facility] #8. History of chronic tobacco dependence #9. Severe clubbing secondary to underlying interstitial lung disease/UIP #10 Hyperlipidemia Plan Continue current medical treatment. A repeat EEG will also be performed today, neurology following. At this point in time she wants to continue with full CODE STATUS. Pulmonary are recommending early tracheostomy and PEG tube placement. DNP note has been reviewed, I agree with a documented findings and plan of care. Patient was seen and examined.
[2020-07-21 12:22] LABS: Glucose,Whole Blood 108 mg/dL (75-99)
[2020-07-21] MEDS ORDERED: LORazepam 2 MG/ML INJ ONE (13:25)
[2020-07-21] MEDS: levETIRAcetam IV 1,000 MG in SALINE 1 100ML.BAG IVPB SCH ×2 (14:11→14:13)
--- NOTE | 2020-07-21 15:13 | P.GSCN ---
History of Present Illness Consult date: 07/21/20 Reason for Consult: Respiratory failure History of present illness: 54-year-old male came to the hospital with acute cardiopulmonary arrest. Aye jenkins's vitals were obtained and he was taken to the radiographer cardiac catheterization. Patient underwent stenting of a 90% LAD lesion. Remains on antiplatelet therapy. Patient had significant downtime while at home and has suspected anoxic brain injury. Some seizure activity recently. Underlying history of pulmonary fibrosis and apparently is on the [facility] transplant list. We were consulted today for tracheostomy and PEG tube placement. Patient was made no code yesterday per family. Review of Systems ROS unobtainable: due to endotracheal tube Past Medical History Past Medical History: Chest Pain / Angina, GERD/Reflux Additional Past Medical History / Comment(s): Idiopathic Pulm Fibrosis, chronic diahrrea, former smoker History of Any Multi-Drug Resistant Organisms: None Reported Past Surgical History: No Surgical Hx Reported Past Psychological History: No Psychological Hx Reported Smoking Status: Former smoker Past Alcohol Use History: None Reported Past Drug Use History: None Reported Medications and Allergies Home Medications Medication Instructions Recorded Confirmed Type Cetirizine HCl 10 mg PO DAILY 07/15/20 07/15/20 History Loperamide HCl [Imodium A-D] 2 - 4 mg PO QID PRN 07/15/20 07/15/20 History Nintedanib Esylate [Ofev] 150 mg PO Q12H 07/15/20 07/15/20 History Omeprazole Magnesium [PriLOSEC OTC] 20 mg PO DAILY 07/15/20 07/15/20 History Allergies Allergy/AdvReac Type Severity Reaction Status Date / Time Penicillins Allergy Rash/Hives Verified 07/15/20 12:05 Surgical - Exam Vital Signs Pulse Resp BP Pulse Ox 104 H 18 98/78 100 07/15/20 11:10 07/15/20 11:10 07/15/20 11:10 07/15/20 11:10 Physical exam: General: Well-developed, well-nourished on ventilator HEENT: Normocephalic, sclerae nonicteric, trachea midline Abdomen: Nontender, nondistended Extremities: Bilateral edema Neuro: Unresponsive Results - Labs 07/21/20 04:25 07/21/20 12:20 Abnormal Lab Results - Last 24 Hours (Table) 07/20/20 07/20/2020 Range/Units 16:08 18:38 20:30 WBC (3.8-10.6) k/uL ABG pH (7.35-7.45) ABG pO2 (83-108) mmHg ABG HCO3 (21-25) mmol/L ABG Total CO2 (19-24) mmol/L ABG O2 Saturation (94-97) % Sodium 151 H 151 H (137-145) mmol/L Chloride (98-107) mmol/L Carbon Dioxide (22-30) mmol/L BUN (9-20) mg/dL Glucose (74-99) mg/dL POC Glucose (mg/dL) 118 H (75-99) mg/dL 07/21/20 07/21/20 07/21/20 Range/Units 00:15 00:18 04:25 WBC 20.2 H (3.8-10.6) k/uL ABG pH (7.35-7.45) ABG pO2 (83-108) mmHg ABG HCO3 (21-25) mmol/L ABG Total CO2 (19-24) mmol/L ABG O2 Saturation (94-97) % Sodium 151 H (137-145) mmol/L Chloride (98-107) mmol/L Carbon Dioxide (22-30) mmol/L BUN (9-20) mg/dL Glucose (74-99) mg/dL POC Glucose (mg/dL) 106 H (75-99) mg/dL 07/21/20 07/21/20 07/21/20 Range/Units 04:25 04:28 08:00 WBC (3.8-10.6) k/uL ABG pH 7.49 H (7.35-7.45) ABG pO2 109 H (83-108) mmHg ABG HCO3 32 H (21-25) mmol/L ABG Total CO2 33 H (19-24) mmol/L ABG O2 Saturation 97.8 H (94-97) % Sodium 151 H 152 H (137-145) mmol/L Chloride 113 H (98-107) mmol/L Carbon Dioxide 33 H (22-30) mmol/L BUN 28 H (9-20) mg/dL Glucose 123 H (74-99) mg/dL POC Glucose (mg/dL) (75-99) mg/dL 07/21/20 07/21/20 Range/Units 12:20 12:20 WBC (3.8-10.6) k/uL ABG pH (7.35-7.45) ABG pO2 (83-108) mmHg ABG HCO3 (21-25) mmol/L ABG Total CO2 (19-24) mmol/L ABG O2 Saturation (94-97) % Sodium 152 H (137-145) mmol/L Chloride (98-107) mmol/L Carbon Dioxide (22-30) mmol/L BUN (9-20) mg/dL Glucose (74-99) mg/dL POC Glucose (mg/dL) 108 H (75-99) mg/dL Diabetes panel 07/20/20 07/20/20 07/21/20 Range/Units 16:08 20:30 00:18 Sodium 151 H 151 H 151 H (137-145) mmol/L Potassium (3.5-5.1) mmol/L Chloride (98-107) mmol/L Carbon Dioxide (22-30) mmol/L BUN (9-20) mg/dL Creatinine (0.66-1.25) mg/dL Glucose (74-99) mg/dL Calcium (8.4-10.2) mg/dL 07/21/20 07/21/20 07/21/20 Range/Units 04:25 08:00 12:20 Sodium 151 H 152 H 152 H (137-145) mmol/L Potassium 3.7 (3.5-5.1) mmol/L Chloride 113 H (98-107) mmol/L Carbon Dioxide 33 H (22-30) mmol/L BUN 28 H (9-20) mg/dL Creatinine 0.96 (0.66-1.25) mg/dL Glucose 123 H (74-99) mg/dL Calcium 9.5 (8.4-10.2) mg/dL Calcium panel 07/21/20 Range/Units 04:25 Calcium 9.5 (8.4-10.2) mg/dL Pituitary panel 07/20/20 07/20/20 07/21/20 Range/Units 16:08 20:30 00:18 Sodium 151 H 151 H 151 H (137-145) mmol/L Potassium (3.5-5.1) mmol/L Chloride (98-107) mmol/L Carbon Dioxide (22-30) mmol/L BUN (9-20) mg/dL Creatinine (0.66-1.25) mg/dL Glucose (74-99) mg/dL Calcium (8.4-10.2) mg/dL 07/21/20 07/21/20 07/21/20 Range/Units 04:25 08:00 12:20 Sodium 151 H 152 H 152 H (137-145) mmol/L Potassium 3.7 (3.5-5.1) mmol/L Chloride 113 H (98-107) mmol/L Carbon Dioxide 33 H (22-30) mmol/L BUN 28 H (9-20) mg/dL Creatinine 0.96 (0.66-1.25) mg/dL Glucose 123 H (74-99) mg/dL Calcium 9.5 (8.4-10.2) mg/dL Adrenal panel 07/20/20 07/20/20 07/21/20 Range/Units 16:08 20:30 00:18 Sodium 151 H 151 H 151 H (137-145) mmol/L Potassium (3.5-5.1) mmol/L Chloride (98-107) mmol/L Carbon Dioxide (22-30) mmol/L BUN (9-20) mg/dL Creatinine (0.66-1.25) mg/dL Glucose (74-99) mg/dL Calcium (8.4-10.2) mg/dL 07/21/20 07/21/20 07/21/20 Range/Units 04:25 08:00 12:20 Sodium 151 H 152 H 152 H (137-145) mmol/L Potassium 3.7 (3.5-5.1) mmol/L Chloride 113 H (98-107) mmol/L Carbon Dioxide 33 H (22-30) mmol/L BUN 28 H (9-20) mg/dL Creatinine 0.96 (0.66-1.25) mg/dL Glucose 123 H (74-99) mg/dL Calcium 9.5 (8.4-10.2) mg/dL Assessment and Plan (1) Ventilator dependence Narrative/Plan: 54-year-old male remains on ventilator after recent arrest. Monitor neurologic status. Will discuss with family options of tracheostomy and PEG tube placement. Current Visit: Yes Status: Acute Code(s): Z99.11 - DEPENDENCE ON RESPIRATOR [VENTILATOR] STATUS SNOMED Code(s): 507841286
--- NOTE | 2020-07-21 16:31 | EEG ---
ELECTROENCEPHALOGRAM REPORT EEG REPORT: DATE OF SERVICE: 07/21/2020 CLINICAL HISTORY: This is a 54-year-old gentleman with history of pulmonary fibrosis, who presented to the Emergency Department on 07/15/2020 after cardiac arrest, lasting for 20 minutes. The patient continued to have altered mental status. The video EEG was obtained to evaluate for seizure and epileptiform activity. Relevant medication: IV propofol, which was held for the exam. EEG TYPE: A routine 21 channel EEG was performed with video using the 10-20 electrode placement system. DESCRIPTION: The patient is intubated on a ventilator and was on IV sedation (propofol) that was held for the EEG. There was no posterior dominant rhythm throughout the study. The background consists of diffuse low-voltage nonrhythmic 0.5-1 hertz delta activity. There is no physiological stage 2 sleep seen. INTERICTAL AND ICTAL: None. ACTIVATION PROCEDURE: Photic stimulation did not evoke a posterior driving response. Hyperventilation was not performed. CLINICAL INTERPRETATION: This is an abnormal routine EEG. The background slowing is suggestive of severe encephalopathy. There are no focal slowing, epileptiform discharges or seizures seen throughout this study. Clinical correlation is recommended. MMODL / IJN: [id number] / MATTHEW
--- NOTE | 2020-07-21 17:24 | P.PN ---
Subjective Progress Note Date: 07/21/20 (delayed charting seen at 0815) Principal diagnosis: unresponsive Patient is a 54-year-old male with a history of pulmonary fibrosis, angina, and GERD who initially complained of indigestion, but had a syncopal episode and became pulseless. His weight*bystander CPR and then EMS continued CPR. He had Ros within the emergency department. Probable down time was 20+ minutes. He was found to have ST segment elevated myocardial infarction emergently to the Occupational Hygienist with a stent placed to the LAD. He was started on broad went up from the Occupational Hygienist and admitted to the ICU. Critical care and neurology were consulted. Neurology reviewed his CT head and thought there was subtle vega- white matter differentiation loss. He underwent an echocardiogram which showed left ventricle hypokinesis with an ejection fraction of 30-35%. He was started on Lasix. He was noted to be unresponsive on the vent however was breathing over the vent. On the morning of 07/17 he underwent an EEG which showed background slowing suggestive mild to moderate encephalopathy. Neurology initially felt we would know more about the neuro possible recovery 1-2 weeks after his cardiac arrest. Repeat CT brain was done on the evening of 07/17/20 which shows diffuse cerebral edema with slight loss of the normal vega-white matter differentiation. Neurology does not cover hospital over the weekend however they were able to take a phone call on 07/18 due to the diffuse cerebral edema they recommended initiating 3% saline as well as mannitol. Patient was monitored closely. He continues to breath over the vent have a positive cough but no gag. He has not had any neurologic improvement despite hypertonic saline and manitol. has elected to keep him a full code. Both Crissy Warner and Devin Segovia have decline the patient in transfer on 07/19. Patient seen and examined at bedside. No acute events overnight. General: Ill-appearing, no distress, appears at stated age Derm: warm, dry, clubbing bilateral hands and feet Head: atraumatic, normocephalic, symmetric Eyes: EOMI, no lid lag, anicteric sclera Mouth: no lip lesion, mucus membranes moist Cardiovascular: S1S2 reg, no murmur, positive posterior tibial pulse bilateral, Lungs: Course bs bilateral, no rhonchi, no rales , no accessory muscle use Abdominal: soft, nontender to palpation, no guarding, no appreciable o rganomegaly Ext: no gross muscle atrophy, no edema, no contractures Neuro: Pupils equal round reactive to light, breathing over the vent, positive cough, + gag, during doll's testing his eyes fixated on the ceiling, no withdrawal to pain in all 4 extremities or supraorbital ridge, no tremors, Psych: Nonresponsive on vent STEMI with stent to the LAD Ischemic systolic cardiomyopathy Diffuse cerebral edema due anoxic encephalopathy Leukocytosis, undetermined etiology concerns for developing infection Hypernatremia, due to hypertonic saline Acute hypoxic respiratory failure secondary to cardiopulmonary arrest Severe idiopathic pulmonary fibrosis/UIP being worked up for lung transplant at [facility] History of chronic tobacco abuse Ventricular fibrillation Leukocytosis, reactive Acute kidney injury, resolved Ischemic hepatitis, improving Continue with aspirin, Birllenta, supportive care with tube feedings, continue management as per pulmonary, cardio, and neuro recs appreciated. Poor over all prognosis. Continue with Keppra for seizure prophylaxis. 3% per neruology recs Son updated over the phone at length DVT prophylaxis: SCDs Discussed with: nursing, Dr. Jason Villa, and Dr. Ashley Villa Anticipated discharge: unknown Anticipated discharge place: unknown A total of 25 minutes were spent on the complex care of this patient. Objective - Vital Signs Vital signs: Vital Signs Temp 101.4 F H 07/21/20 16:00 Pulse 107 H 07/21/20 16:00 Resp 22 07/21/20 16:00 BP 113/80 07/21/20 15:00 Pulse Ox 93 L 07/21/20 16:00 Intake & Output 07/20/20 07/21/20 07/21/20 18:59 06:59 18:59 Intake Total 3907.145 1726.06 1104.935 Output Total 1215 660 625 Balance -145.509 440.06 479.935 Weight 100 kg 100 kg Intake: IV 319 346 464 0.9 NS 110 120 90 NS @ 75 10 Pressure bag 39 36 34 Sodium Chloride 3%( 60 90 40 Hypertonic) 500 ml @ 5 mls/hr IV .Q24H [facility] Rx#: [id number] levETIRAcetam IV 500 mg 100 100 300 In Sodium Chloride 0.9% 100 ml @ 400 mls/hr IVPB Q12HR [facility] Rx#:[id number] Intake, IV Titration 95.491 79.06 85.935 Amount propofoL 1,000 mg In 95.491 79.06 85.935 Empty Bag 1 bag @ Titrate IV .Q0M [facility] Rx#: [id number] Tube Feeding 585 585 495 Lipid 10 Sodium Chloride 3%( 10 Hypertonic) 500 ml @ 5 mls/hr IV .Q24H [facility] Rx#: [id number] Other 60 90 60 Output: Urine 1215 660 625 Other: Voiding Method Indwelling Catheter Indwelling Catheter Indwelling Catheter ABP, PAP, CO, CI - Last Documented Arterial Blood Pressure 104/59 - Labs CBC & Chem 7: 07/21/20 04:25 07/21/20 15:49 Labs: Abnormal Lab Results - Last 24 Hours (Table) 07/20/20 07/20/20 07/21/20 Range/Units 18:38 20:30 00:15 WBC (3.8-10.6) k/uL ABG pH (7.35-7.45) ABG pO2 (83-108) mmHg ABG HCO3 (21-25) mmol/L ABG Total CO2 (19-24) mmol/L ABG O2 Saturation (94-97) % Sodium 151 H (137-145) mmol/L Chloride (98-107) mmol/L Carbon Dioxide (22-30) mmol/L BUN (9-20) mg/dL Glucose (74-99) mg/dL POC Glucose (mg/dL) 118 H 106 H (75-99) mg/dL 07/21/20 07/21/20 07/21/20 Range/Units 00:18 04:25 04:25 WBC 20.2 H (3.8-10.6) k/uL ABG pH (7.35-7.45) ABG pO2 (83-108) mmHg ABG HCO3 (21-25) mmol/L ABG Total CO2 (19-24) mmol/L ABG O2 Saturation (94-97) % Sodium 151 H 151 H (137-145) mmol/L Chloride 113 H (98-107) mmol/L Carbon Dioxide 33 H (22-30) mmol/L BUN 28 H (9-20) mg/dL Glucose 123 H (74-99) mg/dL POC Glucose (mg/dL) (75-99) mg/dL 07/21/20 07/21/20 07/21/20 Range/Units 04:28 08:00 12:20 WBC (3.8-10.6) k/uL ABG pH 7.49 H (7.35-7.45) ABG pO2 109 H (83-108) mmHg ABG HCO3 32 H (21-25) mmol/L ABG Total CO2 33 H (19-24) mmol/L ABG O2 Saturation 97.8 H (94-97) % Sodium 152 H (137-145) mmol/L Chloride (98-107) mmol/L Carbon Dioxide (22-30) mmol/L BUN (9-20) mg/dL Glucose (74-99) mg/dL POC Glucose (mg/dL) 108 H (75-99) mg/dL 07/21/20 07/21/20 Range/Units 12:20 15:49 WBC (3.8-10.6) k/uL ABG pH (7.35-7.45) ABG pO2 (83-108) mmHg ABG HCO3 (21-25) mmol/L ABG Total CO2 (19-24) mmol/L ABG O2 Saturation (94-97) % Sodium 152 H 151 H (137-145) mmol/L Chloride (98-107) mmol/L Carbon Dioxide (22-30) mmol/L BUN (9-20) mg/dL Glucose (74-99) mg/dL POC Glucose (mg/dL) (75-99) mg/dL
--- NOTE | 2020-07-21 19:38 | P.PN ---
Subjective Progress Note Date: 07/21/20 Patient was seen at bedside and per patient nurse, the called back last night yesterday and spoke with the nurse and wanted the patient to be FULL Code. No seizure like activity noted overnight or today. Patient continues to be intubated, on ventilator and on IV sedation (Propofol 20mcg/kg/min which was held about 45 minutes prior to my arrival). He continues not to follow commands. His last sodium is 151. Currently on 3% 10cc/hour. Objective - Vital Signs Vital signs: Vital Signs Temp 98.2 F 07/21/20 08:00 Pulse 98 07/21/20 08:00 Resp 23 07/21/20 08:00 BP 113/80 07/21/20 07:00 Pulse Ox 94 L 07/21/20 08:00 Intake & Output 07/20/20 07/21/20 07/21/20 18:59 06:59 18:59 Intake Total 2852.562 5146.06 166 Output Total 1215 660 75 Balance -145.509 440.06 91 Weight 100 kg Intake: IV 319 346 46 0.9 NS 110 120 20 NS @ 75 10 Pressure bag 39 36 6 Sodium Chloride 3%( 60 90 20 Hypertonic) 500 ml @ 5 mls/hr IV .Q24H [facility] Rx#: [id number] levETIRAcetam IV 500 mg 100 100 In Sodium Chloride 0.9% 100 ml @ 400 mls/hr IVPB Q12HR [facility] Rx#:[id number] Intake, IV Titration 95.491 79.06 Amount propofoL 1,000 mg In 95.491 79.06 Empty Bag 1 bag @ Titrate IV .Q0M [facility] Rx#: [id number] Tube Feeding 585 585 90 Lipid 10 Sodium Chloride 3%( 10 Hypertonic) 500 ml @ 5 mls/hr IV .Q24H [facility] Rx#: [id number] Other 60 90 30 Output: Urine 1215 660 75 Other: Voiding Method Indwelling Catheter Indwelling Catheter ABP, PAP, CO, CI - Last Documented Arterial Blood Pressure 115/63 - Exam GENERAL: The patient is intubated on ventilator and on IV Propofol drip--held for 45 minutes prior to arrival. HENT: Neck is supple. Left forehead has slight edema from fall. LUNG: Intubated on ventilator and breathing over the vent. NEUROLOGICAL: Limited because of patient's condition Higher mental function: The patient is comatose. GCS 5 (E3, V1, M1). Not following commands or attempting to verbalize. Pupils are rounds and are about 3-4mm bilaterally and sluggishly reactive to light. Primary gaze is looking downward. +ve corneal reflex bilaterally. +Positive gag and cough reflex. No facial weakness. Motor: Strength unable to assess because of patient's condition. No movement noted to painful stimuli throughout. No spontaneous movement noted. No posturing is noted. Sensation: Could not be assessed because of his condition. Reflexes: 1+ throughout. Plantars are mute bilaterally. Remained again and sedation was held for 2 1/2 hours: Same exam as above. - Labs CBC & Chem 7: 07/21/20 04:25 07/21/20 15:49 Labs: Abnormal Lab Results - Last 24 Hours (Table) 07/20/20 07/20/20 07/20/20 Range/Units 12:00 16:08 18:38 WBC (3.8-10.6) k/uL ABG pH (7.35-7.45) ABG pO2 (83-108) mmHg ABG HCO3 (21-25) mmol/L ABG Total CO2 (19-24) mmol/L ABG O2 Saturation (94-97) % Sodium 152 H 151 H (137-145) mmol/L Chloride (98-107) mmol/L Carbon Dioxide (22-30) mmol/L BUN (9-20) mg/dL Glucose (74-99) mg/dL POC Glucose (mg/dL) 118 H (75-99) mg/dL Osmolality 321 H (280-301) mosm/kg 07/20/20 07/21/20 07/21/20 Range/Units 20:30 00:15 00:18 WBC (3.8-10.6) k/uL ABG pH (7.35-7.45) ABG pO2 (83-108) mmHg ABG HCO3 (21-25) mmol/L ABG Total CO2 (19-24) mmol/L ABG O2 Saturation (94-97) % Sodium 151 H 151 H (137-145) mmol/L Chloride (98-107) mmol/L Carbon Dioxide (22-30) mmol/L BUN (9-20) mg/dL Glucose (74-99) mg/dL POC Glucose (mg/dL) 106 H (75-99) mg/dL Osmolality (280-301) mosm/kg 07/21/20 07/21/20 07/21/20 Range/Units 04:25 04:25 04:28 WBC 20.2 H (3.8-10.6) k/uL ABG pH 7.49 H (7.35-7.45) ABG pO2 109 H (83-108) mmHg ABG HCO3 32 H (21-25) mmol/L ABG Total CO2 33 H (19-24) mmol/L ABG O2 Saturation 97.8 H (94-97) % Sodium 151 H (137-145) mmol/L Chloride 113 H (98-107) mmol/L Carbon Dioxide 33 H (22-30) mmol/L BUN 28 H (9-20) mg/dL Glucose 123 H (74-99) mg/dL POC Glucose (mg/dL) (75-99) mg/dL Osmolality (280-301) mosm/kg 07/21/20 Range/Units 08:00 WBC (3.8-10.6) k/uL ABG pH (7.35-7.45) ABG pO2 (83-108) mmHg ABG HCO3 (21-25) mmol/L ABG Total CO2 (19-24) mmol/L ABG O2 Saturation (94-97) % Sodium 152 H (137-145) mmol/L Chloride (98-107) mmol/L Carbon Dioxide (22-30) mmol/L BUN (9-20) mg/dL Glucose (74-99) mg/dL POC Glucose (mg/dL) (75-99) mg/dL Osmolality (280-301) mosm/kg Assessment and Plan Assessment: This is a 54 year-old gentleman with history of pulmonary fibrosis who presented to the emergency department on 07/15/2020 because of cardiac arrest at home lasting 20 minutes. CPR was started and he was in V-fib and received shocked by EMS. As result he was intubated and on ventilaror. EKG showed STEMI Anoxic brain injury due to cardiac arrest Encephalopathy the due primarily anoxic brain injury from his cardiac arrest and elevated LFT, current sedation (on IV Propofol) Hypernatremia due to hypertonic saline. Pyrexia Cardiac arrest lasting 20 minutes STEMI status post PCI Elevated troponin due to above Leukocystosis Acute hypoxic respiratory failure requiring mechanical ventilation Acute kidney injury--resolved Elevated liver function tests due to above (like as shock to liver)---improving History of pulmonary fibrosis Plan: CT of the head: No acute intracranial abnormality. CT of the head on the 07/19/2020 was reported as no acute hemorrhage, hydrocephalus or mass effect. Unchanged. Diffuse cerebral edema. CT of the head 07/21/20: Was reported as a there is loss of vega and white matter differentiation and effacement of sulci over the posterior aspect of the frontal lobe and parietal lobes bilaterally, unchanged since the 07/19/2002 but increased Compared to 07/15/2020. The etiology is unknown, possible infarct or edema. Consider MRI for further catheterization if not already performed. EEG on 07/17/2020: The background slowing suggestive of mild to moderate encephalopathy. There are no focal slowing, epileptiform discharges or seizure seen during the study. Excessive fast activity is a likely due to medication (sedation) effect. Ordered routine EEG 07/20/20 pre-liminary report: The study was obscured because of signfiicant artificant throughout the study. There are few EPOCS without myogenic artificat and no seizure or epileptiform discharges seen. Will repeat EEG today and will attempt to give patient NIMBEX prior to the study. Because of the patient the vertical nystagmus. I start the patient on prophylaxis Keppra 500 mg twice a day starting on . Continue 3% with the goal of sodium between 145-155. Sodium checks every 4-6 hours. Cardiology is on board. Patient is currently on aspirin 81 mg 's well as the Berl[place] 90 mg twice a day started by cardiology. I'll defer the medical managements and the respiratory management to the primary team/ICU team. Regarding pyrexia, will defer infection work-up to primary team. Patient is on Tylenol 325mg Q6 hour PRN. The plan was discussed with ICU team and primary team. UPDATE: At around 1:15 PM today was notified by the nurse that the patient was having the seizure-like activity in which she was having jerking of the right upper extremity and had repetitive turning of his right head. During that time the pa tient was off IV sedation. As a result patient was given 4 mg of Ativan. I also gave him 2 g of Keppra IV loading dose and I increased the Keppra from 500 mg 1 tablet twice a day to 1500 mg 1 tablet twice a day. Because of the prolonged cardiac arrest leading to severe cerebral edema and as a result him having seizures his prognosis seems poor. Patient has only brainstem reflex and no cerebral dysfunction. He has not made any improvement since his admission on 07/15/2020. Patient likely needs to be trach and PEG and his quality of life would be dependent on everything. This was related to the patient's (Tomas) as well as the patient's son (Bala) both via phone. Jose Villa M.D. Neuro-hospitalist Time with Patient: Greater than 30
[2020-07-21] MEDS: levETIRAcetam IV 1,500 MG in SALINE 1 100ML.BAG IVPB SCH (20:19)
[2020-07-22 00:16] LABS: Glucose,Whole Blood 102 mg/dL (75-99)
[2020-07-22 04:49] LABS: HGB 13.8 gm/dL (13.0-17.5); MCH 31.8 pg (25.0-35.0); MCHC 32.9 g/dL (31.0-37.0); MCV 96.6 fL (80.0-100.0); Platelet Count 350 k/uL (150-450); RBC 4.35 m/uL (4.30-5.90); RDW 13.6 % (11.5-15.5); WBC 18.1 k/uL (3.8-10.6)
[2020-07-22 05:02] LABS: African American GFR (CKD) >90 (>60 ml/min/1.73 sqM); Anion Gap 5 mmol/L; Blood Urea Nitrogen 35 mg/dL (9-20); Calcium 9.3 mg/dL (8.4-10.2); Carbon Dioxide 33 mmol/L (22-30); Chloride 114 mmol/L (98-107); Glucose 129 mg/dL (74-99); Non-African American GFR(CKD) 89 (>60 ml/min/1.73 sqM); Potassium 3.5 mmol/L (3.5-5.1); Sodium 152 mmol/L (137-145)
[2020-07-22 05:26] LABS: ABG Base Excess 9.8 mmol/L; ABG HCO3 33 mmol/L (21-25); ABG Oxygen Saturation 95.6 % (94-97); ABG PCO2 40 mmHg (35-45); ABG PH 7.52 (7.35-7.45); ABG PO2 73 mmHg (83-108); ABG TCO2 34 mmol/L (19-24); Allen Test Performed? Yes
[2020-07-22 06:26] LABS: Glucose,Whole Blood 111 mg/dL (75-99)
--- NOTE | 2020-07-22 08:27 | XR ---
EXAMINATION TYPE: XR chest 1V portable DATE OF EXAM: 07/22/2020 Comparison: 07/21/2020 Clinical History: 54-year-old male Intubation Findings: ET tube tip at the level of the medial clavicular heads. NG tube courses below the diaphragm. Right s ubclavian CVC tip in the right atrium. Heart upper limits of normal in size. Diffuse finding medium r eticular opacities persist with minimal improvement from prior. Impression: Diffuse interstitial lung disease persists but shows slight improvement from prior.
[2020-07-22] MEDS ORDERED: IPRATROPIUM-ALBUTEROL 3 ML NEB INHALATION PRN (08:29)
[2020-07-22] MEDS ORDERED: Potassium Replacement Protocol 1 EACH MISC MISCELLANE PRN ×2 (08:41→15:41)
[2020-07-22] MEDS: ASPIRIN 81 MG PO SCH (08:44)
[2020-07-22] MEDS: METOPROLOL TARTRATE 25 MG TAB PO SCH ×2 (08:45→21:50)
[2020-07-22] MEDS: CHLORHEXIDINE GLUCONATE 15 ML CUP MUCOUS MEM SCH ×2 (08:45→21:50)
[2020-07-22] MEDS: PANTOPRAZOLE 40 MG/10 ML VIAL IV SCH (08:45)
[2020-07-22] MEDS: TICAGRELOR 90 MG TAB PO SCH ×2 (08:45→21:50)
[2020-07-22] MEDS: FUROSEMIDE 10 MG/ML 4 ML VIAL IV SCH (08:45)
[2020-07-22] MEDS: POTASSIUM CHLORIDE 20 MEQ in WATER FOR INJECTION 1 100ML.BAG IVPB SCH ×2 (08:49→10:37)
--- NOTE | 2020-07-22 09:03 | P.PN ---
Subjective Progress Note Date: 07/22/20 This is a 54-year-old gentleman with known history of pulmonary fibrosis, he was also on the transplant list at [facility]. Complained of indigestion and shortness of breath on presentation here, before his was able to call EMS he collapsed at home. He was found to be in ventricular fibrillation and was shocked by the fire department, and then again subsequently 4 times by EMS. He developed return of spontaneous circulation, was brought here to the emergency room. His EKG on presentation here showed ST segment elevation in the lateral leads, patient was taken to the cardiac catheterization lab where he underwent stenting of the mid LAD. He remains intubated on mechanical ventilation in the intensive care unit this morning. Patient has remained unresponsive since his arrival here, he is off of the present and. Neurology is following, patient has not woken up and followed any commands he is breathing over the ventilator, no spontaneous movement, no seizure activity. His repeat brain CT shows loss of vega and white matter differentiation and effacement of the sulci over the pposterior aspect of the frontal lobes and parietal lobes bilaterally, but increase as compared with July 15. Chest x-ray shows persistent bilateral multifocal infiltrates. He has been afebrile, hemodynamically stable, not requiring any vasopressor support. 07-22- Patient was seen and evaluated this morning, no significant change from yesterday. Chest x-ray shows diffuse interstitial lung disease, persistent with slight improvement. Hemodynamically remaining stable, blood pressure 104/60 with a heart rate in the 90s, afebrile. Plan is for a PEG and trach. White bl ood cell count 18.1, hemoglobin 13.8, platelet count 350. Sodium 152, potassium 3.5, BUN 35, creatinine 0.9. Objective - Vital Signs Vital signs: Vital Signs Temp 98.6 F 07/22/20 08:00 Pulse 94 07/22/20 08:00 Resp 24 07/22/20 08:00 BP 113/80 07/22/20 07:00 Pulse Ox 94 L 07/22/20 08:00 Intake & Output 07/21/20 07/22/20 07/22/20 18:59 06:59 18:59 Intake Total 4562.341 7840.8 13 Output Total 825 605 75 Balance 498.000 459.8 -62 Weight 100 kg 96 kg Intake: IV 503 256 13 0.9 NS 120 120 10 Pressure bag 43 36 3 Sodium Chloride 3%( 40 Hypertonic) 500 ml @ 5 mls/hr IV .Q24H JB Rx#: [id number] levETIRAcetam IV 500 mg 300 100 In Sodium Chloride 0.9% 100 ml @ 400 mls/hr IVPB Q12HR JB Rx#:[id number] Intake, IV Titration 100.000 178.8 Amount propofoL 1,000 mg In 100.000 178.8 Empty Bag 1 bag @ Titrate IV .Q0M JB Rx#: [id number] Tube Feeding 630 540 Other 90 90 Output: Urine 825 605 75 Other: Voiding Method Indwelling Catheter Indwelling Catheter ABP, PAP, CO, CI - Last Documented Arterial Blood Pressure 104/62 - Exam GENERAL EXAM: Today, sedated, 54-year-old white male on assist control mode of ventilation, off sedation, however not following any commands, not spontaneously responding, coughing a lot, breathing over the ventilator, dyssynchronous, comfortable in no apparent distress. HEAD: Normocephalic/atraumatic. EYES: Normal reaction of pupils, equal size. Conjunctiva pink, sclera white. NOSE: Clear with pink turbinates. THROAT: No erythema or exudates. NECK: No masses, no JVD, no thyroid enlargement, no adenopathy. CHEST: No chest wall deformity. Symmetrical expansion. LUNGS: Equal air entry with no crackles, wheeze, rhonchi or dullness. CVS: Regular rate and rhythm, normal S1 and S2, no gallops, no murmurs, no rubs ABDOMEN: Soft, nontender. No hepatosplenomegaly, normal bowel sounds, no guar ding or rigidity. EXTREMITIES: No clubbing, no edema, no cyanosis, 2+ pulses and upper and lower extremities. MUSCULOSKELETAL: Muscle strength and tone normal. SPINE: No scoliosis or deformity SKIN: No rashes CENTRAL NERVOUS SYSTEM: Does not follow command, cephalopathic, breathes over the ventilator, no spontaneous eye contact, or movement - Labs CBC & Chem 7: 07/22/20 04:35 07/22/20 04:35 Labs: Abnormal Lab Results - Last 24 Hours (Table) 07/21/20 07/21/20 07/21/20 Range/Units 04:25 12:20 12:20 WBC (3.8-10.6) k/uL ABG pH (7.35-7.45) ABG pO2 (83-108) mmHg ABG HCO3 (21-25) mmol/L ABG Total CO2 (19-24) mmol/L Sodium 152 H (137-145) mmol/L Chloride (98-107) mmol/L Carbon Dioxide (22-30) mmol/L BUN (9-20) mg/dL Glucose (74-99) mg/dL POC Glucose (mg/dL) 108 H (75-99) mg/dL Procalcitonin 0.36 H (0.02-0.09) ng/mL 07/21/20 07/21/20 07/22/20 Range/Units 15:49 21:40 00:15 WBC (3.8-10.6) k/uL ABG pH (7.35-7.45) ABG pO2 (83-108) mmHg ABG HCO3 (21-25) mmol/L ABG Total CO2 (19-24) mmol/L Sodium 151 H 151 H (137-145) mmol/L Chloride (98-107) mmol/L Carbon Dioxide (22-30) mmol/L BUN (9-20) mg/dL Glucose (74-99) mg/dL POC Glucose (mg/dL) 102 H (75-99) mg/dL Procalcitonin (0.02-0.09) ng/mL 07/22/20 07/22/20 07/22/20 Range/Units 04:35 04:35 05:20 WBC 18.1 H (3.8-10.6) k/uL ABG pH 7.52 H (7.35-7.45) ABG pO2 73 L (83-108) mmHg ABG HCO3 33 H (21-25) mmol/L ABG Total CO2 34 H (19-24) mmol/L Sodium 152 H (137-145) mmol/L Chloride 114 H (98-107) mmol/L Carbon Dioxide 33 H (22-30) mmol/L BUN 35 H (9-20) mg/dL Glucose 129 H (74-99) mg/dL POC Glucose (mg/dL) (75-99) mg/dL Procalcitonin (0.02-0.09) ng/mL 07/22/20 Range/Units 06:24 WBC (3.8-10.6) k/uL ABG pH (7.35-7.45) ABG pO2 (83-108) mmHg ABG HCO3 (21-25) mmol/L ABG Total CO2 (19-24) mmol/L Sodium (137-145) mmol/L Chloride (98-107) mmol/L Carbon Dioxide (22-30) mmol/L BUN (9-20) mg/dL Glucose (74-99) mg/dL POC Glucose (mg/dL) 111 H (75-99) mg/dL Procalcitonin (0.02-0.09) ng/mL Microbiology - Last 24 Hours (Table) 07/21/20 15:25 Gram Stain - Preliminary Sputum Sputum Culture - Preliminary Assessment and Plan Plan: Assessment and Plan : #1. Acute cardiopulmonary arrest secondary to acute ST elevated myocardial infarction, LAD stenting, prolonged downtime/CPR including several different ablations with return of spontaneous circulation. Patient was intubated on 07/15/2020 upon presentation, maintained intubated today on 07/21/2020 related to no improvement in his neurological status #2. Acute anoxic brain injury and anoxic metabolic encephalopathy, with no signs of neurological recovery since admission. #3. Diffuse cerebral edema secondary to anoxic brain injury and cardiac arrest, on hypertonic saline, patient has received mannitol #4. Hypernatremia related to hypertonic saline infusion #5. Coronary artery disease with 90% occlusion of the mid LAD, status post stent placement #6. Acute hypoxic respiratory failure related to cardiac arrest requiring intubation and mechanical ventilation #7. History of severe idiopathic pulmonary fibrosis/UIP supposedly the patient was on the list for lung transplant at the [facility] #8. History of chronic tobacco dependence #9. Severe clubbing secondary to underlying interstitial lung disease/UIP #10 Hyperlipidemia Plan Continue current medical treatment. Repeat EEG was performed yesterday, suggestive of severe encephalopathy with no focal slowing. Overall prognosis poor. We will follow this patient along with you now on an as-needed basis only, least on hesitate to call if you've any questions. DNP note has been reviewed, I agree with a documented findings and plan of care. Patient was seen and examined.
[2020-07-22] MEDS: levETIRAcetam IV 1,500 MG in SALINE 1 100ML.BAG IVPB SCH ×2 (09:49→22:21)
[2020-07-22] MEDS ORDERED: LORazepam 2 MG/ML INJ ONE (10:14)
[2020-07-22] MEDS ORDERED: VALPROATE SODIUM 2,000 MG in SODIUM CHLORIDE 0.9% 100 ML IVPB STA (10:17)
--- NOTE | 2020-07-22 10:55 | PN ---
PROGRESS NOTE PULMONARY/CRITICAL CARE PROGRESS NOTE: DATE OF SERVICE: 07/22/2020 Critical care time is 33 minutes. This is a patient who is status post cardiopulmonary arrest. He sustained an acute ST- segment elevation myocardial infarction. He had a prolonged resuscitative phase. He likely sustained severe anoxic brain injury. He was actually intubated on the day of admission which was July 15. The patient has been on the ventilator since. Currently, the patient is on the volume assist-control mode, rate of 18, tidal volume 450, FiO2 25%, PEEP of 5. Blood gases show a pO2 of 73, pCO2 of 40, pH of 7.52. Blood gases consistent with a metabolic alkalosis. His saline is running at [employer] at 30 mcg/kg per minute. 3% saline is on hold and he is on Vital high-protein at 45 with a goal of 45. He is scheduled for tracheostomy and PEG tube placement tomorrow by Dr. Crockett. The patient will have a midline placed. Yesterday he developed seizures. He received antiseizure medications as per Neurology. The patient has a history of diffuse cerebral edema, anoxic brain injury, CAD, and underlying severe idiopathic pulmonary fibrosis. Current vital signs are reviewed. Temperature 98.6, heart rate 94, respiratory rate is 23, blood pressure 114/57. The saturations are 93%. Appears in no acute distress. HEENT: Examination is grossly unremarkable. He has an orally placed endotracheal tube and NG tube. NECK: Supple, full range of motion. No adenopathy. Neck veins are flat. CARDIOVASCULAR: Examination reveals regular rhythm and rate. Heart rate right around 100 beats per minute. S1, S2 normal. Heart sounds are distant. LUNGS: Reveal diffuse coarse rhonchi. Breath sounds equal. ABDOMEN: Soft, bowel sounds are heard. EXTREMITIES: Intact. Minimal edema. SKIN: Without rash. NEUROLOGIC: Examination is unchanged. Current labs reviewed. White count 18.1, hemoglobin 13.8, hematocrit 42.0, platelet count 350,000. Blood gases have been noted. Sodium 152, potassium 3.5, chloride 114, CO2 is 33, anion gap is 5. BUN and creatinine were 35 and 0.96. Microbiology is negative. Chest x-ray shows diffuse interstitial infiltrates consistent with underlying diagnosis of pulmonary fibrosis. CURRENT MEDICATIONS: Reviewed. He is on Tylenol, Artificial Tears, aspirin, atropine p.r.n., chlorhexidine, Nimbex, Lasix, DuoNeb, Keppra, Maalox, metoprolol, Narcan, Protonix, potassium replacement, propofol, Brilinta, and Depacon. ASSESSMENT: 1. Acute cardiopulmonary arrest, secondary to acute ST-segment elevation myocardial infarction, with prolonged resuscitative phase and likely anoxic brain injury. 2. Status post intubation and mechanical ventilation on July 15 for hypoxemic respiratory failure with failure to wean from mechanical ventilation. 3. Acute anoxic brain injury, currently being followed by Neurology. 4. Diffuse cerebral edema, previously on hypertonic saline. 5. Hyponatremia, secondary to hypertonic saline. 6. CAD, 90% occlusion of the mid LAD, status post stent placement. 7. Acute hypoxemic respiratory failure secondary to cardiac arrest. 8. Idiopathic pulmonary fibrosis/UIP, previously on the transplant list at [facility]. 9. History of chronic tobacco dependence. 10.Anticipated PEG tube and tracheostomy tube placement tomorrow by Dr. Javon Crockett. PLAN: The patient's overall prognosis remains poor. Neurology is following the patient. The did agree to tracheostomy and PEG tube placement. Will also go ahead and place a midline. He had seizures yesterday. He was given Keppra. Currently on Diprivan. 3% saline is on hold. Will continue to follow. He is being nourished. Overall prognosis remains poor. Critical care time 33 minutes. MMMICL / IJN: [id number] /
[2020-07-22] MEDS: IPRATROPIUM-ALBUTEROL 3 ML NEB INHALATION SCH ×4 (11:28→23:00)
--- NOTE | 2020-07-22 12:14 | P.PN ---
Subjective Progress Note Date: 07/22/20 Principal diagnosis: Respiratory failure Patient remains on the ventilator. Still unresponsive. Actively seizing when propofol is decreased. Discussion with family so far has led to a decision to proceed with tracheostomy and PEG tube placement from both neurology and the [facility]. Tolerating tube feeds at goal. Objective - Vital Signs Vital signs: Vital Signs Temp 98.6 F 07/22/20 08:00 Pulse 96 07/22/20 11:44 Resp 28 H 07/22/20 11:00 BP 113/80 07/22/20 07:00 Pulse Ox 92 L 07/22/20 11:00 Intake & Output 07/21/20 07/22/20 07/22/20 18:59 06:59 18:59 Intake Total 0528.415 4523.8 620 Output Total 825 605 840 Balance 498.000 459.8 -220 Weight 100 kg 96 kg Intake: IV 503 256 265 0.9 NS 120 120 50 Potassium Chloride 20 meq 200 In Water For Injection 1 100ml.bag @ 50 mls/hr IVPB Q2H JB Rx#: [id number] Pressure bag 43 36 15 Sodium Chloride 3%( 40 Hypertonic) 500 ml @ 5 mls/hr IV .Q24H JB Rx#: [id number] levETIRAcetam IV 500 mg 300 100 In Sodium Chloride 0.9% 100 ml @ 400 mls/hr IVPB Q12HR J[facility] Rx#:[id number] Intake, IV Titration 100.000 178.8 100 Amount propofoL 1,000 mg In 100.000 178.8 100 Empty Bag 1 bag @ Titrate IV .Q0M JB Rx#: [id number] Tube Feeding 630 540 225 Other 90 90 30 Output: Urine 825 605 840 Other: Voiding Method Indwelling Catheter Indwelling Catheter Indwelling Catheter ABP, PAP, CO, CI - Last Documented Arterial Blood Pressure 93/55 - Exam Abdomen: Soft, nontender, nondistended - Labs CBC & Chem 7: 07/22/20 04:35 07/22/20 09:00 Labs: Abnormal Lab Results - Last 24 Hours (Table) 07/21/20 07/21/20 07/21/20 Range/Units 04:25 12:20 12:20 WBC (3.8-10.6) k/uL ABG pH (7.35-7.45) ABG pO2 (83-108) mmHg ABG HCO3 (21-25) mmol/L ABG Total CO2 (19-24) mmol/L Sodium 152 H (137-145) mmol/L Chloride (98-107) mmol/L Carbon Dioxide (22-30) mmol/L BUN (9-20) mg/dL Glucose (74-99) mg/dL POC Glucose (mg/dL) 108 H (75-99) mg/dL Procalcitonin 0.36 H (0.02-0.09) ng/mL 07/21/20 07/21/20 07/22/20 Range/Units 15:49 21:40 00:15 WBC (3.8-10.6) k/uL ABG pH (7.35-7.45) ABG pO2 (83-108) mmHg ABG HCO3 (21-25) mmol/L ABG Total CO2 (19-24) mmol/L Sodium 151 H 151 H (137-145) mmol/L Chloride (98-107) mmol/L Carbon Dioxide (22-30) mmol/L BUN (9-20) mg/dL Glucose (74-99) mg/dL POC Glucose (mg/dL) 102 H (75-99) mg/dL Procalcitonin (0.02-0.09) ng/mL 07/22/20 07/22/20 07/22/20 Range/Units 04:35 04:35 05:20 WBC 18.1 H (3.8-10.6) k/uL ABG pH 7.52 H (7.35-7.45) ABG pO2 73 L (83-108) mmHg ABG HCO3 33 H (21-25) mmol/L ABG Total CO2 34 H (19-24) mmol/L Sodium 152 H (137-145) mmol/L Chloride 114 H (98-107) mmol/L Carbon Dioxide 33 H (22-30) mmol/L BUN 35 H (9-20) mg/dL Glucose 129 H (74-99) mg/dL POC Glucose (mg/dL) (75-99) mg/dL Procalcitonin (0.02-0.09) ng/mL 07/22/20 07/22/20 Range/Units 06:24 09:00 WBC (3.8-10.6) k/uL ABG pH (7.35-7.45) ABG pO2 (83-108) mmHg ABG HCO3 (21-25) mmol/L ABG Total CO2 (19-24) mmol/L Sodium 152 H (137-145) mmol/L Chloride (98-107) mmol/L Carbon Dioxide (22-30) mmol/L BUN (9-20) mg/dL Glucose (74-99) mg/dL POC Glucose (mg/dL) 111 H (75-99) mg/dL Procalcitonin (0.02-0.09) ng/mL Microbiology - Last 24 Hours (Table) 07/21/20 15:25 Gram Stain - Preliminary Sputum Sputum Culture - Preliminary Assessment and Plan (1) Ventilator dependence Narrative/Plan: Will discuss further with the patient's by phone. We'll tentatively schedule for tracheostomy and PEG tube placement tomorrow. Current Visit: Yes Status: Acute Code(s): Z99.11 - DEPENDENCE ON RESPIRATOR [VENTILATOR] STATUS SNOMED Code(s): 070448198
[2020-07-22 12:54] LABS: Glucose,Whole Blood 105 mg/dL (75-99)
--- NOTE | 2020-07-22 13:32 | P.PN ---
Subjective Progress Note Date: 07/22/20 (delayed charting seen at 0945) Principal diagnosis: unresponsive Patient is a 54-year-old male with a history of pulmonary fibrosis, angina, and GERD who initially complained of indigestion, but had a syncopal episode and became pulseless. His weight*bystander CPR and then EMS continued CPR. He had Ros within the emergency department. Probable down time was 20+ minutes. He was found to have ST segment elevated myocardial infarction emergently to the Substance Addiction Coordinator with a stent placed to the LAD. He was started on broad went up from the Substance Addiction Coordinator and admitted to the ICU. Critical care and neurology were consulted. Neurology reviewed his CT head and thought there was subtle vega- white matter differentiation loss. He underwent an echocardiogram which showed left ventricle hypokinesis with an ejection fraction of 30-35%. He was started on Lasix. He was noted to be unresponsive on the vent however was breathing over the vent. On the morning of 07/17 he underwent an EEG which showed background slowing suggestive mild to moderate encephalopathy. Neurology initially felt we would know more about the neuro possible recovery 1-2 weeks after his cardiac arrest. Repeat CT brain was done on the evening of 07/17/20 which shows diffuse cerebral edema with slight loss of the normal vega-white matter differentiation. Neurology does not cover hospital over the weekend however they were able to take a phone call on 07/18 due to the diffuse cerebral edema they recommended initiating 3% saline as well as mannitol. Patient was monitored closely. He continues to breath over the vent have a positive cough but no gag. He has not had any neurologic improvement despite hypertonic saline and manitol. has elected to keep him a full code. He started having seizure activity on 07/21 and was started on keppra. Both Crissy Warner and Devin Segovia have decline the patient in transfer on 07/19. Patient seen and examined at bedside. Had seizure activity again today and during EEG, he was given ativan and depakote. General: Ill-appearing, no distress, appears at stated age Derm: warm, dry, clubbing bilateral hands and feet Head: atraumatic, normocephalic, symmetric Eyes: EOMI, no lid lag, anicteric sclera Mouth: no lip lesion, mucus membranes moist Cardiovascular: S1S2 reg, no murmur, positive posterior tibial pulse bilateral, Lungs: Course bs bilateral, no rhonchi, no rales , no accessory muscle use Abdominal: soft, nontender to palpation, no guarding, no appreciable organomegaly Ext: no gross muscle atrophy, no edema, no contractures Neuro: Pupils equal round reactive to light, breathing over the vent, positive cough, + gag, during doll's testing his eyes fixated on the ceiling, no withdrawal to pain in all 4 extremities or supraorbital ridge, no tremors, Psych: Nonresponsive on vent Aborted sudden cardiac arrest STEMI with stent to the LAD Ischemic systolic cardiomyopathy Diffuse cerebral edema due anoxic encephalopathy Leukocytosis, undetermined etiology concerns for developing infection Hypernatremia, due to hypertonic saline Acute hypoxic respiratory failure secondary to cardiopulmonary arrest Severe idiopathic pulmonary fibrosis/UIP being worked up for lung transplant at [facility] History of chronic tobacco abuse Ventricular fibrillation Leukocytosis, reactive- prolacitonin Acute kidney injury, resolved Ischemic hepatitis, improving Continue with aspirin, Birllenta, supportive care with tube feedings, continue management as per pulmonary, cardio, and neuro recs appreciated. Poor over all prognosis. Continue with Keppra and depakote for seizure prophylaxis. 3% per neruology recs Plan is for trach and Peg has wanted him full code DVT prophylaxis: SCDs Discussed with: nursing, Anticipated discharge: unknown Anticipated discharge place: unknown A total of 25 minutes were spent on the complex care of this patient. Objective - Vital Signs Vital signs: Vital Signs Temp 98.9 F 07/22/20 12:00 Pulse 98 07/22/20 12:00 Resp 28 H 07/22/20 12:00 BP 113/80 07/22/20 07:00 Pulse Ox 93 L 07/22/20 12:00 Intake & Output 07/21/20 07/22/20 07/22/20 18:59 06:59 18:59 Intake Total 3294.113 2532.8 778 Output Total 825 605 940 Balance 498.000 459.8 -162 Weight 100 kg 96 kg Intake: IV 503 256 378 0.9 NS 120 120 60 Potassium Chloride 20 meq 200 In Water For Injection 1 100ml.bag @ 50 mls/hr IVPB Q2H JB Rx#: [id number] Pressure bag 43 36 18 Sodium Chloride 3%( 40 Hypertonic) 500 ml @ 5 mls/hr IV .Q24H JB Rx#: [id number] Valproate Sodium 2,000 mg 100 In Sodium Chloride 0.9% 100 ml @ 120 mls/hr IVPB ONCE STA Rx#:[id number] levETIRAcetam IV 500 mg 300 100 In Sodium Chloride 0.9% 100 ml @ 400 mls/hr IVPB Q12HR [facility] Rx#:[id number] Intake, IV Titration 100.000 178.8 100 Amount propofoL 1,000 mg In 100.000 178.8 100 Empty Bag 1 bag @ Titrate IV .Q0M JB Rx#: [id number] Tube Feeding 630 540 270 Other 90 90 30 Output: Urine 825 605 940 Other: Voiding Method Indwelling Catheter Indwelling Catheter Indwelling Catheter ABP, PAP, CO, CI - Last Documented Arterial Blood Pressure 88/53 - Labs CBC & Chem 7: 07/22/20 04:35 07/22/20 12:45 Labs: Abnormal Lab Results - Last 24 Hours (Table) 07/21/20 07/21/20 07/21/20 Range/Units 04:25 15:49 21:40 WBC (3.8-10.6) k/uL ABG pH (7.35-7.45) ABG pO2 (83-108) mmHg ABG HCO3 (21-25) mmol/L ABG Total CO2 (19-24) mmol/L Sodium 151 H 151 H (137-145) mmol/L Chloride (98-107) mmol/L Carbon Dioxide (22-30) mmol/L BUN (9-20) mg/dL Glucose (74-99) mg/dL POC Glucose (mg/dL) (75-99) mg/dL Procalcitonin 0.36 H (0.02-0.09) ng/mL 07/22/20 07/22/20 07/22/20 Range/Units 00:15 04:35 04:35 WBC 18.1 H (3.8-10.6) k/uL ABG pH (7.35-7.45) ABG pO2 (83-108) mmHg ABG HCO3 (21-25) mmol/L ABG Total CO2 (19-24) mmol/L Sodium 152 H (137-145) mmol/L Chloride 114 H (98-107) mmol/L Carbon Dioxide 33 H (22-30) mmol/L BUN 35 H (9-20) mg/dL Glucose 129 H (74-99) mg/dL POC Glucose (mg/dL) 102 H (75-99) mg/dL Procalcitonin (0.02-0.09) ng/mL 07/22/20 07/22/20 07/22/20 Range/Units 05:20 06:24 09:00 WBC (3.8-10.6) k/uL ABG pH 7.52 H (7.35-7.45) ABG pO2 73 L (83-108) mmHg ABG HCO3 33 H (21-25) mmol/L ABG Total CO2 34 H (19-24) mmol/L Sodium 152 H (137-145) mmol/L Chloride (98-107) mmol/L Carbon Dioxide (22-30) mmol/L BUN (9-20) mg/dL Glucose (74-99) mg/dL POC Glucose (mg/dL) 111 H (75-99) mg/dL Procalcitonin (0.02-0.09) ng/mL 07/22/20 Range/Units 12:43 WBC (3.8-10.6) k/uL ABG pH (7.35-7.45) ABG pO2 (83-108) mmHg ABG HCO3 (21-25) mmol/L ABG Total CO2 (19-24) mmol/L Sodium (137-145) mmol/L Chloride (98-107) mmol/L Carbon Dioxide (22-30) mmol/L BUN (9-20) mg/dL Glucose (74-99) mg/dL POC Glucose (mg/dL) 105 H (75-99) mg/dL Procalcitonin (0.02-0.09) ng/mL Microbiology - Last 24 Hours (Table) 07/21/20 15:25 Gram Stain - Preliminary Sputum Sputum Culture - Preliminary
[2020-07-22] MEDS: VALPROATE SODIUM 500 MG in SODIUM CHLORIDE 0.9% 100 ML IVPB SCH (18:32)
[2020-07-22] MEDS: POTASSIUM CHLORIDE 10 MEQ in WATER FOR INJECTION 1 100ML.BAG IVPB SCH ×2 (18:32→18:58)
--- NOTE | 2020-07-22 21:10 | P.PN ---
Subjective Progress Note Date: 07/22/20 I spoke with a overnight the ICU nurse and he stated the patient did not have any seizure-like activity but the patient was on IV propofol. While the IV propofol was held patient started having jerking of the right upper extremity and the having jerking of the right side of the head jerking to the right side as well per the patient nurse. Seizure onset was around 1007 today and lasted for 15-20 minutes until the patient received [id number] and was restarted on propofol drip. When he is off the sedation the patient is not following commands or attempting to verbalize. Objective - Vital Signs Vital signs: Vital Signs Temp 98.8 F 07/22/20 16:00 Pulse 105 H 07/22/20 19:27 Resp 30 H 07/22/20 19:00 BP 113/80 07/22/20 15:00 Pulse Ox 93 L 07/22/20 19:00 Intake & Output 07/22/20 07/22/20 07/23/20 06:59 18:59 06:59 Intake Total 1064.8 1496.7 107 Output Total 605 1580 125 Balance 459.8 -83.3 -18 Weight 96 kg Intake: IV 256 656 13 0.9 NS 120 120 10 Potassium Chloride 20 meq 300 In Water For Injection 1 100ml.bag @ 50 mls/hr IVPB Q2H [facility] Rx#: [id number] Pressure bag 36 36 3 Valproate Sodium 2,000 mg 200 In Sodium Chloride 0.9% 100 ml @ 120 mls/hr IVPB ONCE [facility] Rx#:[id number] levETIRAcetam IV 500 mg 100 In Sodium Chloride 0.9% 100 ml @ 400 mls/hr IVPB Q12HR [facility] Rx#:[id number] Intake, IV Titration 178.8 183.7 Amount propofoL 1,000 mg In 178.8 183.7 Empty Bag 1 bag @ Titrate IV .Q0M [facility] Rx#: [id number] Tube Feeding 540 597 94 Other 90 60 Output: Urine 605 1580 125 Other: Voiding Method Indwelling Catheter Indwelling Catheter ABP, PAP, CO, CI - Last Documented Arterial Blood Pressure 99/55 - Exam GENERAL: The patient is intubated on ventilator and on IV Propofol 30mcg/kg/min. HENT: Neck is supple. Left forehead has slight edema from fall. LUNG: Intubated on ventilator and breathing over the vent. NEUROLOGICAL: Limited because of patient's condition Higher mental function: The patient is comatose. GCS 4 (E2, V1, M1). Not following commands or attempting to verbalize. Pupils are rounds and are about 2-3-mm bilaterally and sluggishly reactive to light. Primary gaze is midline +ve corneal reflex bilaterally. +Positive gag and cough reflex. No facial weakness. Motor: Strength unable to assess because of patient's condition. No movement noted to painful stimuli throughout. No spontaneous movement noted. No posturing is noted. Sensation: Could not be assessed because of his condition. Reflexes: 1+ throughout. Plantars are mute bilaterally. When off sedation no change in exam. - Labs CBC & Chem 7: 07/22/20 04:35 07/22/20 12:45 Labs: Abnormal Lab Results - Last 24 Hours (Table) 07/21/20 07/22/20 07/22/20 Range/Units 21:40 00:15 04:35 WBC 18.1 H (3.8-10.6) k/uL ABG pH (7.35-7.45) ABG pO2 (83-108) mmHg ABG HCO3 (21-25) mmol/L ABG Total CO2 (19-24) mmol/L Sodium 151 H (137-145) mmol/L Chloride (98-107) mmol/L Carbon Dioxide (22-30) mmol/L BUN (9-20) mg/dL Glucose (74-99) mg/dL POC Glucose (mg/dL) 102 H (75-99) mg/dL 07/22/20 07/22/20 07/22/20 Range/Units 04:35 05:20 06:24 WBC (3.8-10.6) k/uL ABG pH 7.52 H (7.35-7.45) ABG pO2 73 L (83-108) mmHg ABG HCO3 33 H (21-25) mmol/L ABG Total CO2 34 H (19-24) mmol/L Sodium 152 H (137-145) mmol/L Chloride 114 H (98-107) mmol/L Carbon Dioxide 33 H (22-30) mmol/L BUN 35 H (9-20) mg/dL Glucose 129 H (74-99) mg/dL POC Glucose (mg/dL) 111 H (75-99) mg/dL 07/22/20 07/22/20 Range/Units 09:00 12:43 WBC (3.8-10.6) k/uL ABG pH (7.35-7.45) ABG pO2 (83-108) mmHg ABG HCO3 (21-25) mmol/L ABG Total CO2 (19-24) mmol/L Sodium 152 H (137-145) mmol/L Chloride (98-107) mmol/L Carbon Dioxide (22-30) mmol/L BUN (9-20) mg/dL Glucose (74-99) mg/dL POC Glucose (mg/dL) 105 H (75-99) mg/dL Microbiology - Last 24 Hours (Table) 07/21/20 15:25 Gram Stain - Preliminary Sputum Sputum Culture - Preliminary Assessment and Plan Assessment: This is a 54 year-old gentleman with history of pulmonary fibrosis who presented to the emergency department on 07/15/2020 because of cardiac arrest at home lasting 20 minutes. CPR was started and he was in V-fib and received shocked by EMS. As result he was intubated and on ventilaror. EKG showed STEMI Anoxic brain injury due to cardiac arrest Convulsive status due to above Encephalopathy the due primarily anoxic brain injury from his cardiac arrest Hypernatremia due to hypertonic saline. Pyrexia Cardiac arrest lasting 20 minutes STEMI status post PCI Elevated troponin due to above Leukocystosis--tending down Acute hypoxic respiratory failure requiring mechanical ventilation Acute kidney injury--resolved Elevated liver function tests due to above (like as shock to liver)---improving History of pulmonary fibrosis Plan: CT of the head: No acute intracranial abnormality. CT of the head on the 07/19/2020 was reported as no acute hemorrhage, hydrocephalus or mass effect. Unchanged. Diffuse cerebral edema. CT of the head 07/21/20: Was reported as a there is loss of vega and white matter differentiation and effacement of sulci over the posterior aspect of the frontal lobe and parietal lobes bilaterally, unchanged since the 07/19/2002 but increased Compared to 07/15/2020. The etiology is unknown, possible infarct or edema. Consider MRI for further catheterization if not already performed. EEG on 07/17/2020: The background slowing suggestive of mild to moderate encephalopathy. There are no focal slowing, epileptiform discharges or seizure seen during the study. Excessive fast activity is a likely due to medication (sedation) effect. Ordered routine EEG 07/20/20 pre-liminary report: The study was obscured because of signfiicant artificant throughout the study. There are few EPOCS without myogenic artificat and no seizure or epileptiform discharges seen. Will repeat EEG today with NIMBEX (07/21/20): Mcdonald slowing suggestive of severe encephalopathy. There are no focal slowing, peripheral discharges or seizure and seen throughout the study. Patient is on Keppra 1500 mg twice a day. Because of his outcome falls as of seizure seen today. He was given informative the Ativan and was restarted on propofol and that his seizure resolved. Also give him a loading dose of Depakote 2000 mg as well as started on 20 mix per cake of Depakote divided into twice a day dose. EEG was ordered for today. Continue 3% with the goal of sodium between 145-155. Sodium checks every 4-6 hours. Cardiology is on board. Patient is currently on aspirin 81 mg 's well as the Berlant 90 mg twice a day started by cardiology. I'll defer the medical managements and the respiratory management to the primary team/ICU team. Regarding pyrexia, will defer infection work-up to primary team. Patient is on Tylenol 325mg Q6 hour PRN. Because of the prolonged cardiac arrest leading to severe cerebral edema and as a result him having seizures his prognosis seems poor. Patient has only brainstem reflex and no cerebral dysfunction. He has not made any improvement since his admission on 07/15/2020. Patient likely needs to be trach and PEG and his quality of life would be dependent on everything. The plan was discussed with ICU team and primary team. Jose Villa M.D. Neuro-hospitalist Time with Patient: Greater than 30
--- NOTE | 2020-07-22 21:16 | EEG ---
ELECTROENCEPHALOGRAM REPORT DATE OF SERVICE: 07/22/2020 CLINICAL HISTORY: This is a 54-year-old gentleman with history of pulmonary fibrosis, presented to the emergency department on 07/15/2020 after cardiac arrest lasting 20 minutes. On 07/21/2020, he had jerking of the right upper extremity when he was off the sedation. Video EEG was obtained to evaluate for seizure and epileptiform activity. RELEVANT MEDICATION: IV propofol drip which was held for the exam and is on Keppra. EEG TYPE: A routine 21 channel EEG was performed with video using the 10/20 electrode placement system. DESCRIPTION: Patient is intubated on ventilator. The propofol drip has been held for the exam. There is not posterior background rhythm. The background was hard to appreciated and seems suppressed. ITERICTAL AND ICTAL From the beginning of the study, there are low to moderate voltage 7-8 hertz sharply contoured activity that is rhythmic theta activity over the right temporal derivatives which evolves into the right central region then to the entire right hemisphere at 10:09. Then the sharply contoured rhythmic activity evolves into the entire left hemisphere at around 10:13. Ativan 4 mg is given at 10:17 am and at 10:18 am there is resolution of seizure. Clinically, the patient has a jerking of the right upper extremity. ACTIVATION PROCEDURES: Photic stimulation and hyperventilation were not performed. CLINICAL INTERPRETATION: This is an abnormal routine EEG. This study is suggestive of status epilepticus. The seizures resolves after after 4 mg Ativan. This study compared to the previous study on 07/21/2020 is worse. Clinical correlation is recommended. MMODL / IJN: [id number] / MATTHEW
[2020-07-23 00:43] LABS: ABG Base Excess 9.7 mmol/L; ABG HCO3 32 mmol/L (21-25); ABG Oxygen Saturation 94.7 % (94-97); ABG PCO2 37 mmHg (35-45); ABG PH 7.54 (7.35-7.45); ABG PO2 67 mmHg (83-108); ABG TCO2 33 mmol/L (19-24); Allen Test Performed? Yes
[2020-07-23 00:50] LABS: Basophils # (A) 0.3 k/uL (0-0.2); Basophils % (A) 1 %; Eosinophils # (A) 0.8 k/uL (0-0.7); Eosinophils % (A) 5 %; HCT 43.3 % (39.0-53.0); HGB 14.1 gm/dL (13.0-17.5); Lymphocytes # (A) 2.2 k/uL (1.0-4.8); Lymphocytes % (A) 12 %; MCHC 32.7 g/dL (31.0-37.0); Mean Platelet Volume 8.2; Monocytes # (A) 0.9 k/uL (0-1.0); Monocytes % (A) 5 %; Neutrophils # (A) 13.7 k/uL (1.3-7.7); Neutrophils % (A) 76 %; Platelet Count 349 k/uL (150-450); RBC 4.56 m/uL (4.30-5.90); RDW 13.5 % (11.5-15.5); WBC 18.1 k/uL (3.8-10.6)
[2020-07-23 00:59] LABS: Albumin 3.3 g/dL (3.5-5.0); Calcium 9.2 mg/dL (8.4-10.2); Magnesium 2.6 mg/dL (1.6-2.3); Potassium 3.9 mmol/L (3.5-5.1); Total Bilirubin 1.5 mg/dL (0.2-1.3)
[2020-07-23 01:13] LABS: D-Dimer 6.39 mg/L FEU (<0.60); Partial Thromboplastin Time 24.1 sec (22.0-30.0); Prothrombin Time 10.2 sec (9.0-12.0)
--- NOTE | 2020-07-23 01:42 | CT ---
EXAM: CT Chest With Intravenous Contrast CLINICAL HISTORY: ITS.REASON CT Reason: Organ Donation Testing TECHNIQUE: Axial computed tomography images of the chest with intravenous contrast. CTDI is 6.792 mGy and DLP is 529.5 mGy-cm. This CT exam was performed using one or more of the following dose reduction techniques: automated exposure control, adjustment of the mA and/or kV according to patient size, and/or use of iterative reconstruction technique. COMPARISON: No relevant prior studies available. FINDINGS: Lungs: There are severe fibrotic changes throughout both lungs with peripheral honeycombing. The right lung measures 14.6 x 7.6 cm. The left lung measures 16.7 x 7 cm. There is a small amount of debris in the right lower lobe bronchus with mild right infrahilar infiltrate. Pleural space: Unremarkable. No pneumothorax. No significant effusion. Heart: The heart is not enlarged. Mild coronary calcification is present. No significant pericardial effusion. Bones/joints: Moderate multilevel degenerative changes are seen throughout the thoracic spine. No fracture or subluxation is seen. Soft tissues: Unremarkable. Vasculature: Unremarkable. No thoracic aortic aneurysm. Lymph nodes: Unremarkable. No enlarged lymph nodes. Tubes, lines and devices: There is an NG tube extending into the stomach. There is a right internal jugular central venous catheter extending to the cavoatrial junction. There is an endotracheal tube in standard position. IMPRESSION: There are severe fibrotic changes throughout both lungs with peripheral honeycombing. There is a small amount of debris in the right lower lobe bronchus with mild right infrahilar infiltrate. Tubes and lines in good position. No evidence of pulmonary embolism or acute aortic abnormality. EXAM: CT Abdomen and Pelvis With Intravenous Contrast CLINICAL HISTORY: ITS.REASON CT Reason: Organ Donation Testing TECHNIQUE: Axial computed tomography images of the abdomen and pelvis with intravenous contrast. CTDI is 6.792 mGy and DLP is 529.5 mGy-cm. This CT exam was performed using one or more of the following dose reduction techniques: automated exposure control, adjustment of the mA and/or kV according to patient size, and/or use of iterative reconstruction technique. COMPARISON: No relevant prior studies available. FINDINGS: Lung bases: Unremarkable. No mass. No consolidation. ABDOMEN: Liver: There is mild fatty infiltration of the liver. No focal liver lesion is seen. The liver measures 16 cm craniocaudad by 20 cm transverse. Gallbladder and bile ducts: Unremarkable. No calcified stones. No ductal dilation. Pancreas: Unremarkable. No mass. No ductal dilation. Spleen: These spleen appears unremarkable measuring 10 cm craniocaudad. Adrenals: Unremarkable. No mass. Kidneys and ureters: The right kidney measures 13.2 x 5.3 cm. No hydronephrosis. Stomach and bowel: Unremarkable. No obstruction. No mucosal thickening. PELVIS: Appendix: The appendix is normal per Bladder: The urinary bladder is decompressed by Zaldivar catheter. Reproductive: Unremarkable as visualized. ABDOMEN and PELVIS: Intraperitoneal space: Unremarkable. No free air. No significant fluid collection. Bones/joints: Mild to moderate degenerative changes in the lumbar spine. No fracture or subluxation. The left kidney measures 12 x 5.2 cm. No hydronephrosis. Soft tissues: Unremarkable. Vasculature: Unremarkable. No abdominal aortic aneurysm. Lymph nodes: Unremarkable. No enlarged lymph nodes. IMPRESSION: No acute findings in the abdomen or pelvis.
[2020-07-23] MEDS: VALPROATE SODIUM 500 MG in SODIUM CHLORIDE 0.9% 100 ML IVPB SCH ×5 (01:52→23:59)
[2020-07-23 02:08] LABS: Glucose,Whole Blood 104 mg/dL (75-99)
[2020-07-23] MEDS: IPRATROPIUM-ALBUTEROL 3 ML NEB INHALATION SCH ×6 (03:19→23:08)
[2020-07-23 05:06] LABS: ABG Base Excess 8.7 mmol/L; ABG HCO3 32 mmol/L (21-25); ABG Oxygen Saturation 96.1 % (94-97); ABG PCO2 39 mmHg (35-45); ABG PH 7.51 (7.35-7.45); ABG PO2 81 mmHg (83-108); ABG TCO2 33 mmol/L (19-24); Allen Test Performed? Yes
[2020-07-23 05:31] LABS: Appearance,Urine Clear (Clear); Bilirubin,Urine Negative (Negative); Blood,Urine Moderate (Negative); Color,Urine Yellow; Glucose,Urine (UA) Negative (Negative); Ketones,Urine Trace (Negative); Leukocyte Esterase,Urine Negative (Negative); Mucus,Urine Rare /hpf; Nitrite,Urine Negative (Negative); Protein,Urine Trace (Negative); RBC,Urine 33 /hpf (0-5); Squamous Epithelial Cell,Urine <1 /hpf (0-4); WBC,Urine 2 /hpf (0-5)
[2020-07-23 05:35] LABS: Specific Gravity,Urine >1.050 (1.001-1.035)
[2020-07-23] MEDS ORDERED: Potassium Replacement Protocol 1 EACH MISC MISCELLANE PRN (07:56)
[2020-07-23] MEDS ORDERED: POTASSIUM BICARBONATE/CIT AC 20 MEQ TABLET.EFF NG-TUBE SCH (08:00)
[2020-07-23 08:29] LABS: ABG Base Excess 8.7 mmol/L; ABG HCO3 31 mmol/L (21-25); ABG Oxygen Saturation 96.8 % (94-97); ABG PCO2 38 mmHg (35-45); ABG PH 7.53 (7.35-7.45); ABG PO2 81 mmHg (83-108); ABG TCO2 33 mmol/L (19-24)
[2020-07-23 08:30] LABS: Allen Test Performed? no
[2020-07-23] MEDS: levETIRAcetam IV 1,500 MG in SALINE 1 100ML.BAG IVPB SCH ×2 (09:18→21:21)
[2020-07-23] MEDS: ASPIRIN 81 MG PO SCH (09:18)
[2020-07-23] MEDS: FUROSEMIDE 10 MG/ML 4 ML VIAL IV SCH (09:18)
[2020-07-23] MEDS: CHLORHEXIDINE GLUCONATE 15 ML CUP MUCOUS MEM SCH ×2 (09:18→21:22)
[2020-07-23] MEDS: TICAGRELOR 90 MG TAB PO SCH ×2 (09:18→21:21)
[2020-07-23] MEDS: METOPROLOL TARTRATE 25 MG TAB PO SCH ×2 (09:18→21:21)
[2020-07-23] MEDS: PANTOPRAZOLE 40 MG/10 ML VIAL IV SCH (09:19)
[2020-07-23 10:42] LABS: Basophils # (A) 0.1 k/uL (0-0.2); Basophils % (A) 1 %; Eosinophils # (A) 0.8 k/uL (0-0.7); Eosinophils % (A) 4 %; HCT 44.6 % (39.0-53.0); HGB 14.2 gm/dL (13.0-17.5); Lymphocytes # (A) 2.6 k/uL (1.0-4.8); Lymphocytes % (A) 14 %; MCH 30.4 pg (25.0-35.0); MCHC 31.8 g/dL (31.0-37.0); MCV 95.5 fL (80.0-100.0); Mean Platelet Volume 8.5; Monocytes # (A) 0.7 k/uL (0-1.0); Monocytes % (A) 4 %; Neutrophils # (A) 14.1 k/uL (1.3-7.7); Neutrophils % (A) 76 %; Platelet Count 396 k/uL (150-450); RBC 4.67 m/uL (4.30-5.90); RDW 13.8 % (11.5-15.5); WBC 18.6 k/uL (3.8-10.6)
[2020-07-23 10:57] LABS: D-Dimer 6.74 mg/L FEU (<0.60); Prothrombin Time 10.5 sec (9.0-12.0)
--- NOTE | 2020-07-23 10:59 | P.PN ---
Subjective Progress Note Date: 07/23/20 Principal diagnosis: Cardiac arrest 54-year-old male with a history of pulmonary fibrosis, angina, and GERD who initially complained of indigestion, but had a syncopal episode and became pulseless. His weight*bystander CPR and then EMS continued CPR. He had Ros within the emergency department. Probable down time was 20+ minutes. He was found to have ST segment elevated myocardial infarction emergently to the [employer] with a stent placed to the LAD. He was started on broad went up from the [employer] and admitted to the ICU. Critical care and neurology were consulted. Neurology reviewed his CT head and thought there was subtle vega-white matter differentiation loss. He underwent an echocardiogram which showed left ventricle hypokinesis with an ejection fraction of 30-35%. He was started on Lasix. He was noted to be unresponsive on the vent however was breathing over the vent. On the morning of 07/17 he underwent an EEG which showed background slowing suggestive mild to moderate encephalopathy. Neurology initially felt we would know more about the neuro possible recovery 1-2 weeks after his cardiac arrest. Repeat CT brain was done on the evening of 07/17/20 which shows diffuse cerebral edema with slight loss of the normal vega-white matter differentiation. Neurology does not cover hospital over the weekend however they were able to take a phone call on 07/18 due to the diffuse cerebral edema they recommended initiating 3% saline as well as mannitol. Patient was monitored closely. He continues to breath over the vent have a positive cough but no gag. He has not had any neurologic improvement despite hypertonic saline and manitol. has elected to keep him a full code. He started having seizure activity on 07/21 and was started on keppra. 07/23: Doing well, no overnight issues. No seizures noted. Still requiring full vent support. Objective - Vital Signs Vital signs: Vital Signs Temp 99.6 F 07/23/20 08:00 Pulse 105 H 07/23/20 10:00 Resp 26 H 07/23/20 10:00 BP 113/80 07/23/20 06:00 Pulse Ox 93 L 07/23/20 10:00 Intake & Output 07/22/20 07/23/20 07/23/20 18:59 06:59 18:59 Intake Total 1496.7 650 276 Output Total 1580 760 660 Balance -83.3 -110 -384 Intake: IV 656 456 152 0.9 NS 120 120 40 Potassium Chloride 20 meq 300 In Water For Injection 1 100ml.bag @ 50 mls/hr IVPB Q2H [facility] Rx#: [id number] Pressure bag 36 36 12 Valproate Sodium 2,000 mg 200 300 In Sodium Chloride 0.9% 100 ml @ 120 mls/hr IVPB ONCE [facility] Rx#:[id number] levETIRAcetam IV 1,500 mg 100 In Saline 1 100ml.bag @ 400 mls/hr IVPB Q12HR COUNT INCLUDES [facility] Rx#:[id number] Intake, IV Titration 183.7 100 Amount propofoL 1,000 mg In 183.7 100 Empty Bag 1 bag @ Titrate IV .Q0M COUNT INCLUDES [facility] Rx#: [id number] Tube Feeding 597 94 94 Other 60 30 Output: Urine 1580 760 660 Other: Voiding Method Indwelling Catheter Indwelling Catheter ABP, PAP, CO, CI - Last Documented Arterial Blood Pressure 99/58 - Exam General: Ill-appearing, no distress, appears at stated age Derm: warm, dry, clubbing bilateral hands and feet Head: atraumatic, normocephalic, symmetric Eyes: EOMI, no lid lag, anicteric sclera Mouth: no lip lesion, mucus membranes moist Cardiovascular: S1S2 reg, no murmur, positive posterior tibial pulse bilateral, Lungs: Course bs bilateral, no rhonchi, no rales , no accessory muscle use Abdominal: soft, nontender to palpation, no guarding, no appreciable organomegaly Ext: no gross muscle atrophy, no edema, no contractures Neuro: Pupils equal round reactive to light, breathing over the vent, positive cough, + gag, during doll's testing his eyes fixated on the ceiling, no withdrawal to pain in all 4 extremities or supraorbital ridge, no tremors, Psych: Nonresponsive on vent - Labs CBC & Chem 7: 07/23/20 10:20 07/23/20 05:07 Labs: Abnormal Lab Results - Last 24 Hours (Table) 07/22/20 07/22/20 07/23/20 Range/Units 12:43 22:32 00:35 WBC 18.1 H (3.8-10.6) k/uL Neutrophils # 13.7 H (1.3-7.7) k/uL Eosinophils # 0.8 H (0-0.7) k/uL Basophils # 0.3 H (0-0.2) k/uL Fibrinogen (200-500) mg/dL D-Dimer (<0.60) mg/L FEU ABG pH (7.35-7.45) ABG pO2 (83-108) mmHg ABG HCO3 (21-25) mmol/L ABG Total CO2 (19-24) mmol/L Sodium 152 H (137-145) mmol/L Chloride (98-107) mmol/L Carbon Dioxide (22-30) mmol/L BUN (9-20) mg/dL Glucose (74-99) mg/dL POC Glucose (mg/dL) 105 H (75-99) mg/dL Magnesium (1.6-2.3) mg/dL Total Bilirubin (0.2-1.3) mg/dL GGT (15-73) U/L AST (17-59) U/L ALT (4-49) U/L Albumin (3.5-5.0) g/dL Lipase (23-300) U/L Ur Specific [place] (1.001-1.035) Urine Protein (Negative) Urine Ketones (Negative) Urine Blood (Negative) Urine RBC (0-5) /hpf Urine Mucus (None) /hpf 07/23/20 07/23/20 07/23/20 Range/Units 00:35 00:35 00:38 WBC (3.8-10.6) k/uL Neutrophils # (1.3-7.7) k/uL Eosinophils # (0-0.7) k/uL Basophils # (0-0.2) k/uL Fibrinogen 932 H (200-500) mg/dL D-Dimer 6.39 H (<0.60) mg/L FEU ABG pH 7.54 H (7.35-7.45) ABG pO2 67 L (83-108) mmHg ABG HCO3 32 H (21-25) mmol/L ABG Total CO2 33 H (19-24) mmol/L Sodium 152 H (137-145) mmol/L Chloride 114 H (98-107) mmol/L Carbon Dioxide 33 H (22-30) mmol/L BUN 38 H (9-20) mg/dL Glucose 120 H (74-99) mg/dL POC Glucose (mg/dL) (75-99) mg/dL Magnesium 2.6 H (1.6-2.3) mg/dL Total Bilirubin 1.5 H (0.2-1.3) mg/dL GGT 192 H (15-73) U/L AST 78 H (17-59) U/L ALT 69 H (4-49) U/L Albumin 3.3 L (3.5-5.0) g/dL Lipase 530 H (23-300) U/L Ur Specific [place] (1.001-1.035) Urine Protein (Negative) Urine Ketones (Negative) Urine Blood (Negative) Urine RBC (0-5) /hpf Urine Mucus (None) /hpf 07/23/20 07/23/20 07/23/20 Range/Units 02:06 04:57 05:07 WBC (3.8-10.6) k/uL Neutrophils # (1.3-7.7) k/uL Eosinophils # (0-0.7) k/uL Basophils # (0-0.2) k/uL Fibrinogen (200-500) mg/dL D-Dimer (<0.60) mg/L FEU ABG pH 7.51 H (7.35-7.45) ABG pO2 81 L (83-108) mmHg ABG HCO3 32 H (21-25) mmol/L ABG Total CO2 33 H (19-24) mmol/L Sodium 151 H (137-145) mmol/L Chloride (98-107) mmol/L Carbon Dioxide (22-30) mmol/L BUN (9-20) mg/dL Glucose (74-99) mg/dL POC Glucose (mg/dL) 104 H (75-99) mg/dL Magnesium (1.6-2.3) mg/dL Total Bilirubin (0.2-1.3) mg/dL GGT (15-73) U/L AST (17-59) U/L ALT (4-49) U/L Albumin (3.5-5.0) g/dL Lipase (23-300) U/L Ur Specific [place] (1.001-1.035) Urine Protein (Negative) Urine Ketones (Negative) Urine Blood (Negative) Urine RBC (0-5) /hpf Urine Mucus (None) /hpf 07/23/20 07/23/20 07/23/20 Range/Units 05:07 08:27 10:20 WBC 18.6 H (3.8-10.6) k/uL Neutrophils # 14.1 H (1.3-7.7) k/uL Eosinophils # 0.8 H (0-0.7) k/uL Basophils # (0-0.2) k/uL Fibrinogen (200-500) mg/dL D-Dimer (<0.60) mg/L FEU ABG pH 7.53 H (7.35-7.45) ABG pO2 81 L (83-108) mmHg ABG HCO3 31 H (21-25) mmol/L ABG Total CO2 33 H (19-24) mmol/L Sodium (137-145) mmol/L Chloride (98-107) mmol/L Carbon Dioxide (22-30) mmol/L BUN (9-20) mg/dL Glucose (74-99) mg/dL POC Glucose (mg/dL) (75-99) mg/dL Magnesium (1.6-2.3) mg/dL Total Bilirubin (0.2-1.3) mg/dL GGT (15-73) U/L AST (17-59) U/L ALT (4-49) U/L Albumin (3.5-5.0) g/dL Lipase (23-300) U/L Ur Specific [place] >1.050 H (1.001-1.035) Urine Protein Trace H (Negative) Urine Ketones Trace H (Negative) Urine Blood Moderate H (Negative) Urine RBC 33 H (0-5) /hpf Urine Mucus Rare H (None) /hpf Microbiology - Last 24 Hours (Table) 07/22/20 05:20 Blood Culture - Preliminary Blood No Growth after 24 hours Assessment and Plan Plan: Aborted sudden cardiac arrest STEMI with stent to the LAD Ischemic systolic cardiomyopathy Diffuse cerebral edema due anoxic encephalopathy Leukocytosis, undetermined etiology concerns for developing infection Hypernatremia, due to hypertonic saline Acute hypoxic respiratory failure secondary to cardiopulmonary arrest Severe idiopathic pulmonary fibrosis/UIP being worked up for lung transplant at [facility] History of chronic tobacco abuse Ventricular fibrillation Leukocytosis, reactive- prolacitonin Acute kidney injury, resolved Ischemic hepatitis, improving Continue current medications. has decided to do a gift of life harvest which is scheduled tomorrow afternoon. Code status changed to DNR DVT prophylaxis: SCDs Discussed with: nursing, Anticipated discharge: 07/24 A total of 25 minutes were spent on the complex care of this patient.
[2020-07-23 11:02] LABS: Albumin 3.5 g/dL (3.5-5.0); Calcium 9.2 mg/dL (8.4-10.2); Magnesium 2.5 mg/dL (1.6-2.3); Phosphorus 4.4 mg/dL (2.5-4.5); Potassium 3.8 mmol/L (3.5-5.1); Total Bilirubin 1.7 mg/dL (0.2-1.3); Total Protein 7.4 g/dL (6.3-8.2)
--- NOTE | 2020-07-23 11:02 | PN ---
PROGRESS NOTE PULMONARY/CRITICAL CARE PROGRESS NOTE: DATE OF SERVICE: 07/23/2020 Critical care time 34 minutes. This is a 54-year-old male who is status post cardiopulmonary arrest. He sustained an acute ST-segment elevation myocardial infarction. He had a very prolonged resuscitative phase. He was admitted back on July 15. He sustained significant anoxic brain injury. He was intubated on the day of admission which was July 15. He remains on the ventilator. He is on the volume assist-control mode, rate of 18, tidal volume 450, FiO2 of 25%, PEEP of 5. Blood gases show a pO2 of 81, pCO2 of 38, and pH of 7.52. This is consistent with a metabolic alkalosis. He is on propofol at 30 mcg/kg per minute, saline at KVO and Vital High protein at 47 with a goal of 47. He apparently is now a [facility] candidate. The patient is apparently going to have his kidneys, liver, and heart valve harvested tomorrow at 2 o'clock. Apparently his has changed her mind. Initially she wanted a tracheostomy and PEG tube placement for long-term acute care facility. Apparently, overnight, she decided to do differently. The patient did develop some seizures while he was here. That was treated with antiseizure medications per Neurology. He also has a history of diffuse cerebral edema, anoxic brain injury, CAD, and idiopathic pulmonary fibrosis for which he was on the transplant list at [facility]. Current vital signs include temperature 99.6, heart rate 106, respiratory rate 24, blood pressure 95/56, saturations are 93%. Appears in no acute distress. HEENT: Examination is grossly unremarkable. There is an orally placed endotracheal tube and NG tube. NECK: Supple, full range of motion. No adenopathy. Neck veins are flat. CARDIOVASCULAR: Examination reveals regular rhythm and rate. Heart rate 100 beats per minute. S1, S2 normal. It is sinus. LUNGS: Reveal some bibasilar crackles. This is underlying pulmonary fibrosis. The crackles are Velcro in nature. ABDOMEN: Soft, bowel sounds are heard. EXTREMITIES: Intact. He is clubbed. No cyanosis or edema. SKIN: Without rash. NEUROLOGIC: Examination is unchanged. The patient is unresponsive. Currently, his white count is 18.1, hemoglobin 14.1, hematocrit 43.3, platelet count 349, PT 10.2, INR 1, PTT 24.1, fibrinogen 9932. D-dimer 6.39. Sodium 151, potassium 3.9, chloride 114, CO2 is 33, anion gap is 5. BUN and creatinine were 38 and 1.13. The rest of the labs are reviewed. N Terminal ProBNP is 2300. Urine is reviewed. Microbiology is negative. CT scan of the chest, abdomen, pelvis shows fibrotic changes throughout both lungs consistent with the patient's known history of pulmonary fibrosis. There is a small amount of debris in the right lower lobe bronchus. No evidence of pulmonary embolism or acute aortic abnormality. A CT of the abdomen shows no acute findings. No chest x-ray from today. MEDICATIONS: Reviewed. Currently, the patient is on Tylenol, Artificial Tears, aspirin, chlorhexidine, Lasix, DuoNeb, Keppra, Maalox, metoprolol, Narcan, Protonix, potassium replacement, propofol, Brilinta, and Depacon. ASSESSMENT: 1. Acute cardiopulmonary arrest, secondary to acute ST-segment elevation myocardial infarction, with prolonged resuscitative phase and severe anoxic brain injury. 2. Status post intubation and mechanical ventilation on July 15 for hypoxemic respiratory failure, with failure to wean from mechanical ventilation. 3. Acute anoxic brain injury, currently being followed by Neurology. The patient has shown no improvement. 4. Diffuse cerebral edema, patient previously on hypertonic saline. 5. Hypernatremia, secondary to hypertonic saline. 6. Coronary artery disease, with 90% occlusion of the mid LAD, status post stent placement. 7. Acute hypoxemic respiratory failure secondary to cardiac arrest. 8. Idiopathic pulmonary fibrosis/UIP, previously on the transplant list at [facility]. 9. History of chronic tobacco dependence. 10.Anticipated PEG tube placement and tracheostomy tube placement, today, which was discontinued after the patient's decided to make the patient a [facility] candidate. PLAN: The patient apparently is a [facility] candidate. His organs will be harvested tomorrow at 2 p.m. Apparently, they are planning on using the kidneys, liver and heart valves. We will change of 0.9 at KVO to D5W. His sodium is creeping up to 151. No vent changes. Additional recommendations and suggestions are forthcoming. Prognosis is obviously very poor. No additional seizures. Critical care time 34 minutes. MMODL / IJN: [id number] /
--- NOTE | 2020-07-23 12:08 | P.PN ---
Subjective Progress Note Date: 07/23/20 The patient was seen at bedside and the he continues to be intubated on a ventilator and is on IV propofol 30 mcg/kg/min. Per the patient's nurse the has decided that to do a [facility] harvest which is scheduled tomorrow in the afternoon. Objective - Vital Signs Vital signs: Vital Signs Temp 99.6 F 07/23/20 08:00 Pulse 101 H 07/23/20 11:55 Resp 26 H 07/23/20 10:00 BP 113/80 07/23/20 06:00 Pulse Ox 93 L 07/23/20 10:00 Intake & Output 07/22/20 07/23/20 07/23/20 18:59 06:59 18:59 Intake Total 1496.7 650 276 Output Total 1580 760 660 Balance -83.3 -110 -384 Intake: IV 656 456 152 0.9 NS 120 120 40 Potassium Chloride 20 meq 300 In Water For Injection 1 100ml.bag @ 50 mls/hr IVPB Q2H [facility] Rx#: [id number] Pressure bag 36 36 12 Valproate Sodium 2,000 mg 200 300 In Sodium Chloride 0.9% 100 ml @ 120 mls/hr IVPB ONCE [facility] Rx#:[id number] levETIRAcetam IV 1,500 mg 100 In Saline 1 100ml.bag @ 400 mls/hr IVPB Q12HR [facility] Rx#:[id number] Intake, IV Titration 183.7 100 Amount propofoL 1,000 mg In 183.7 100 Empty Bag 1 bag @ Titrate IV .Q0M [facility] Rx#: [id number] Tube Feeding 597 94 94 Other 60 30 Output: Urine 1580 760 660 Other: Voiding Method Indwelling Catheter Indwelling Catheter ABP, PAP, CO, CI - Last Documented Arterial Blood Pressure 99/58 - Exam GENERAL: The patient is intubated on ventilator and on IV Propofol 30mcg/kg/min. HENT: Neck is supple. Left forehead has slight edema from fall. LUNG: Intubated on ventilator and breathing over the vent. NEUROLOGICAL: Limited because of patient's condition Higher mental function: The patient is comatose. GCS 1 (E1, V1, M1). Not following commands or attempting to verbalize. Pupils are rounds and are about 2mm bilaterally and sluggishly reactive to light. Primary gaze is midline No facial weakness. Motor: Strength unable to assess because of patient's condition. No movement noted to painful stimuli throughout. No spontaneous movement noted. No posturing is noted. Sensation: Could not be assessed because of his condition. Reflexes: 1+ throughout. Plantars are mute bilaterally. When off sedation no change in exam. - Labs CBC & Chem 7: 07/23/20 10:20 07/23/20 10:20 Labs: Abnormal Lab Results - Last 24 Hours (Table) 07/22/20 07/22/20 07/23/20 Range/Units 12:43 22:32 00:35 WBC 18.1 H (3.8-10.6) k/uL Neutrophils # 13.7 H (1.3-7.7) k/uL Eosinophils # 0.8 H (0-0.7) k/uL Basophils # 0.3 H (0-0.2) k/uL Fibrinogen (200-500) mg/dL D-Dimer (<0.60) mg/L FEU ABG pH (7.35-7.45) ABG pO2 (83-108) mmHg ABG HCO3 (21-25) mmol/L ABG Total CO2 (19-24) mmol/L Sodium 152 H (137-145) mmol/L Chloride (98-107) mmol/L Carbon Dioxide (22-30) mmol/L BUN (9-20) mg/dL Glucose (74-99) mg/dL POC Glucose (mg/dL) 105 H (75-99) mg/dL Magnesium (1.6-2.3) mg/dL Total Bilirubin (0.2-1.3) mg/dL GGT (15-73) U/L AST (17-59) U/L ALT (4-49) U/L Albumin (3.5-5.0) g/dL Amylase (30-110) U/L Lipase (23-300) U/L Ur Specific [place] (1.001-1.035) Urine Protein (Negative) Urine Ketones (Negative) Urine Blood (Negative) Urine RBC (0-5) /hpf Urine Mucus (None) /hpf 07/23/20 07/23/20 07/23/20 Range/Units 00:35 00:35 00:38 WBC (3.8-10.6) k/uL Neutrophils # (1.3-7.7) k/uL Eosinophils # (0-0.7) k/uL Basophils # (0-0.2) k/uL Fibrinogen 932 H (200-500) mg/dL D-Dimer 6.39 H (<0.60) mg/L FEU ABG pH 7.54 H (7.35-7.45) ABG pO2 67 L (83-108) mmHg ABG HCO3 32 H (21-25) mmol/L ABG Total CO2 33 H (19-24) mmol/L Sodium 152 H (137-145) mmol/L Chloride 114 H (98-107) mmol/L Carbon Dioxide 33 H (22-30) mmol/L BUN 38 H (9-20) mg/dL Glucose 120 H (74-99) mg/dL POC Glucose (mg/dL) (75-99) mg/dL Magnesium 2.6 H (1.6-2.3) mg/dL Total Bilirubin 1.5 H (0.2-1.3) mg/dL GGT 192 H (15-73) U/L AST 78 H (17-59) U/L ALT 69 H (4-49) U/L Albumin 3.3 L (3.5-5.0) g/dL Amylase (30-110) U/L Lipase 530 H (23-300) U/L Ur Specific [place] (1.001-1.035) Urine Protein (Negative) Urine Ketones (Negative) Urine Blood (Negative) Urine RBC (0-5) /hpf Urine Mucus (None) /hpf 07/23/20 07/23/20 07/23/20 Range/Units 02:06 04:57 05:07 WBC (3.8-10.6) k/uL Neutrophils # (1.3-7.7) k/uL Eosinophils # (0-0.7) k/uL Basophils # (0-0.2) k/uL Fibrinogen (200-500) mg/dL D-Dimer (<0.60) mg/L FEU ABG pH 7.51 H (7.35-7.45) ABG pO2 81 L (83-108) mmHg ABG HCO3 32 H (21-25) mmol/L ABG Total CO2 33 H (19-24) mmol/L Sodium 151 H (137-145) mmol/L Chloride (98-107) mmol/L Carbon Dioxide (22-30) mmol/L BUN (9-20) mg/dL Glucose (74-99) mg/dL POC Glucose (mg/dL) 104 H (75-99) mg/dL Magnesium (1.6-2.3) mg/dL Total Bilirubin (0.2-1.3) mg/dL GGT (15-73) U/L AST (17-59) U/L ALT (4-49) U/L Albumin (3.5-5.0) g/dL Amylase (30-110) U/L Lipase (23-300) U/L Ur Specific [place] (1.001-1.035) Urine Protein (Negative) Urine Ketones (Negative) Urine Blood (Negative) Urine RBC (0-5) /hpf Urine Mucus (None) /hpf 07/23/20 07/23/20 07/23/20 Range/Units 05:07 08:27 10:20 WBC 18.6 H (3.8-10.6) k/uL Neutrophils # 14.1 H (1.3-7.7) k/uL Eosinophils # 0.8 H (0-0.7) k/uL Basophils # (0-0.2) k/uL Fibrinogen (200-500) mg/dL D-Dimer (<0.60) mg/L FEU ABG pH 7.53 H (7.35-7.45) ABG pO2 81 L (83-108) mmHg ABG HCO3 31 H (21-25) mmol/L ABG Total CO2 33 H (19-24) mmol/L Sodium (137-145) mmol/L Chloride (98-107) mmol/L Carbon Dioxide (22-30) mmol/L BUN (9-20) mg/dL Glucose (74-99) mg/dL POC Glucose (mg/dL) (75-99) mg/dL Magnesium (1.6-2.3) mg/dL Total Bilirubin (0.2-1.3) mg/dL GGT (15-73) U/L AST (17-59) U/L ALT (4-49) U/L Albumin (3.5-5.0) g/dL Amylase (30-110) U/L Lipase (23-300) U/L Ur Specific [place] >1.050 H (1.001-1.035) Urine Protein Trace H (Negative) Urine Ketones Trace H (Negative) Urine Blood Moderate H (Negative) Urine RBC 33 H (0-5) /hpf Urine Mucus Rare H (None) /hpf 07/23/20 07/23/20 Range/Units 10:20 10:20 WBC (3.8-10.6) k/uL Neutrophils # (1.3-7.7) k/uL Eosinophils # (0-0.7) k/uL Basophils # (0-0.2) k/uL Fibrinogen 892 H (200-500) mg/dL D-Dimer 6.74 H (<0.60) mg/L FEU ABG pH (7.35-7.45) ABG pO2 (83-108) mmHg ABG HCO3 (21-25) mmol/L ABG Total CO2 (19-24) mmol/L Sodium 154 H (137-145) mmol/L Chloride 114 H (98-107) mmol/L Carbon Dioxide 33 H (22-30) mmol/L BUN 36 H (9-20) mg/dL Glucose 117 H (74-99) mg/dL POC Glucose (mg/dL) (75-99) mg/dL Magnesium 2.5 H (1.6-2.3) mg/dL Total Bilirubin 1.7 H (0.2-1.3) mg/dL GGT (15-73) U/L AST 79 H (17-59) U/L ALT 76 H (4-49) U/L Albumin (3.5-5.0) g/dL Amylase 122 H (30-110) U/L Lipase 474 H (23-300) U/L Ur Specific [place] (1.001-1.035) Urine Protein (Negative) Urine Ketones (Negative) Urine Blood (Negative) Urine RBC (0-5) /hpf Urine Mucus (None) /hpf Microbiology - Last 24 Hours (Table) 07/21/20 15:25 Gram Stain - Preliminary Sputum Sputum Culture - Preliminary Gram Neg Bacilli 07/22/20 05:20 Blood Culture - Preliminary Blood No Growth after 24 hours Assessment and Plan Assessment: This is a 54 year-old gentleman with history of pulmonary fibrosis who presented to the emergency department on 07/15/2020 because of cardiac arrest at home l asting 20 minutes. CPR was started and he was in V-fib and received shocked by EMS. As result he was intubated and on ventilaror. EKG showed STEMI Anoxic brain injury due to cardiac arrest Convulsive status due to above Encephalopathy the due primarily anoxic brain injury from his cardiac arrest Hypernatremia due to hypertonic saline. Pyrexia Cardiac arrest lasting 20 minutes STEMI status post PCI Elevated troponin due to above Leukocystosis--tending down Acute hypoxic respiratory failure requiring mechanical ventilation Acute kidney injury--resolved Elevated liver function tests due to above (like as shock to liver)---improving History of pulmonary fibrosis Plan: CT of the head: No acute intracranial abnormality. CT of the head on the 07/19/2020 was reported as no acute hemorrhage, hydrocephalus or mass effect. Unchanged. Diffuse cerebral edema. CT of the head 07/21/20: Was reported as a there is loss of vega and white matter differentiation and effacement of sulci over the posterior aspect of the frontal lobe and parietal lobes bilaterally, unchanged since the 07/19/2002 but increased Compared to 07/15/2020. The etiology is unknown, possible infarct or edema. Consider MRI for further catheterization if not already performed. EEG on 07/17/2020: The background slowing suggestive of mild to moderate encephalopathy. There are no focal slowing, epileptiform discharges or seizure seen during the study. Excessive fast activity is a likely due to medication (sedation) effect. EEG 07/20/20 pre-liminary report: The study was obscured because of signfiicant artificant throughout the study. There are few EPOCS without myogenic artificat and no seizure or epileptiform discharges seen. EEG with NIMBEX (07/21/20): Mcdonald slowing suggestive of severe encephalopathy. There are no focal slowing, peripheral discharges or seizure and seen throughout the study. EEG 07/22/2020: Showed that the patient was in the status epilepticus. The seizure resolved after 4 mg Ativan. The EEG study compared to the previous study on 07/21/2020 is worse. No clear background over bilateral hemisphere. Patient is on Keppra 1500 mg twice a day. Is on Depakote 15 mg per kg into divided dose. Early the patient is on the propofol IV 30mcg/kg/min. 3% hypertonic saline as discontinued Since the family decided to do a gift of life harvest which is scheduled for tomorrow afternoon. Therefore no further neurology intervention. Neurology will sign off. Jose Villa M.D. Neuro-hospitalist Time with Patient: Less than 30
[2020-07-23 18:46] LABS: Glucose,Whole Blood 105 mg/dL (75-99)
[2020-07-23 20:24] LABS: Basophils # (A) 0.1 k/uL (0-0.2); Basophils % (A) 1 %; Eosinophils # (A) 0.6 k/uL (0-0.7); Eosinophils % (A) 3 %; HCT 42.9 % (39.0-53.0); HGB 14.1 gm/dL (13.0-17.5); Lymphocytes # (A) 2.3 k/uL (1.0-4.8); Lymphocytes % (A) 13 %; MCH 31.5 pg (25.0-35.0); MCHC 32.8 g/dL (31.0-37.0); MCV 96.1 fL (80.0-100.0); Mean Platelet Volume 8.1; Monocytes # (A) 0.9 k/uL (0-1.0); Monocytes % (A) 5 %; Neutrophils # (A) 14.2 k/uL (1.3-7.7); Neutrophils % (A) 77 %; Platelet Count 343 k/uL (150-450); RBC 4.46 m/uL (4.30-5.90); RDW 13.6 % (11.5-15.5); WBC 18.4 k/uL (3.8-10.6)
[2020-07-23 20:25] LABS: ABG Base Excess 10.7 mmol/L; ABG HCO3 34 mmol/L (21-25); ABG Oxygen Saturation 99.5 % (94-97); ABG PCO2 43 mmHg (35-45); ABG PO2 139 mmHg (83-108); ABG TCO2 35 mmol/L (19-24); Allen Test Performed? Yes
[2020-07-23 20:43] LABS: Albumin 3.2 g/dL (3.5-5.0); Magnesium 2.7 mg/dL (1.6-2.3); Phosphorus 4.4 mg/dL (2.5-4.5); Potassium 3.9 mmol/L (3.5-5.1); Total Bilirubin 1.3 mg/dL (0.2-1.3)
[2020-07-23 20:47] LABS: D-Dimer 8.44 mg/L FEU (<0.60); Partial Thromboplastin Time 24.3 sec (22.0-30.0); Prothrombin Time 10.2 sec (9.0-12.0)
[2020-07-23] MEDS ORDERED: POTASSIUM CHLORIDE 20 MEQ in WATER FOR INJECTION 1 100ML.BAG IVPB STA (21:06)
[2020-07-23] MEDS: ACETAMINOPHEN TAB 325 MG TAB PO PRN (21:21)
[2020-07-23 22:35] VITALS: BP 90/67
[2020-07-23 23:38] LABS: Glucose,Whole Blood 99 mg/dL (75-99)
[2020-07-24] MEDS: IPRATROPIUM-ALBUTEROL 3 ML NEB INHALATION SCH ×4 (04:07→21:48)
[2020-07-24 04:58] LABS: ABG Base Excess 10.3 mmol/L; ABG HCO3 34 mmol/L (21-25); ABG Oxygen Saturation 99.1 % (94-97); ABG PCO2 46 mmHg (35-45); ABG PH 7.48 (7.35-7.45); ABG PO2 194 mmHg (83-108); ABG TCO2 35 mmol/L (19-24); Allen Test Performed? Yes
[2020-07-24 05:43] LABS: Glucose,Whole Blood 102 mg/dL (75-99)
[2020-07-24] MEDS: VALPROATE SODIUM 500 MG in SODIUM CHLORIDE 0.9% 100 ML IVPB SCH ×3 (07:02→18:40)
[2020-07-24 09:17] VITALS: TEMP 99.1
[2020-07-24] MEDS: levETIRAcetam IV 1,500 MG in SALINE 1 100ML.BAG IVPB SCH (09:20)
[2020-07-24] MEDS: CHLORHEXIDINE GLUCONATE 15 ML CUP MUCOUS MEM SCH (09:21)
[2020-07-24] MEDS: METOPROLOL TARTRATE 25 MG TAB PO SCH (09:21)
[2020-07-24] MEDS: PANTOPRAZOLE 40 MG/10 ML VIAL IV SCH (09:22)
[2020-07-24] MEDS: TICAGRELOR 90 MG TAB PO SCH (09:22)
[2020-07-24] MEDS: ASPIRIN 81 MG PO SCH (09:32)
[2020-07-24] MEDS ORDERED: LORazepam 2 MG/ML INJ IV PRN ×3 (10:04→17:47)
[2020-07-24 10:16] LABS: ABG HCO3 34 mmol/L (21-25); ABG PCO2 44 mmHg (35-45); ABG PO2 142 mmHg (83-108); ABG TCO2 35 mmol/L (19-24); Allen Test Performed? no
[2020-07-24 10:34] LABS: Basophils # (A) 0.1 k/uL (0-0.2); Basophils % (A) 1 %; Eosinophils # (A) 0.5 k/uL (0-0.7); Eosinophils % (A) 3 %; HCT 43.8 % (39.0-53.0); Lymphocytes # (A) 1.9 k/uL (1.0-4.8); Lymphocytes % (A) 11 %; MCH 31.1 pg (25.0-35.0); MCHC 32.1 g/dL (31.0-37.0); MCV 97.1 fL (80.0-100.0); Mean Platelet Volume 8.4; Monocytes # (A) 0.7 k/uL (0-1.0); Monocytes % (A) 4 %; Neutrophils # (A) 14.3 k/uL (1.3-7.7); Neutrophils % (A) 80 %; Platelet Count 330 k/uL (150-450); RBC 4.51 m/uL (4.30-5.90); RDW 13.5 % (11.5-15.5); WBC 17.9 k/uL (3.8-10.6)
[2020-07-24 10:52] LABS: ALT 61 U/L (4-49); AST 63 U/L (17-59); African American GFR (CKD) >90 (>60 ml/min/1.73 sqM); Albumin 3.2 g/dL (3.5-5.0); Alkaline Phosphatase 110 U/L (38-126); Anion Gap 1 mmol/L; Blood Urea Nitrogen 38 mg/dL (9-20); Calcium 9.2 mg/dL (8.4-10.2); Carbon Dioxide 37 mmol/L (22-30); Chloride 117 mmol/L (98-107); Glucose 125 mg/dL (74-99); Magnesium 2.8 mg/dL (1.6-2.3); Non-African American GFR(CKD) 79 (>60 ml/min/1.73 sqM); Sodium 155 mmol/L (137-145); Total Bilirubin 1.4 mg/dL (0.2-1.3)
[2020-07-24 10:53] LABS: D-Dimer 6.09 mg/L FEU (<0.60); Prothrombin Time 10.2 sec (9.0-12.0)
--- NOTE | 2020-07-24 11:23 | PN ---
PROGRESS NOTE PULMONARY/CRITICAL CARE PROGRESS NOTE: DATE OF SERVICE: 07/24/2020 Critical care time 33 minutes. This is a 54-year-old male status post cardiopulmonary arrest. He sustained an acute ST-segment elevation myocardial infarction. He had a prolonged resuscitative phase. He was admitted back on July 15. Unfortunately, he sustained significant anoxic brain injury. He was intubated on 07/15. He has remained on the ventilator since. Currently, he is on the volume assist-control mode rate of 18, tidal volume 450, FiO2 of 50%, PEEP of 5. Blood gases show a pO2 of 194, pCO2 of 46 and a pH of 7.48. Currently, he is on Diprivan at 20 mcg/kg/minute and saline at 10 mL an hour. He is not getting any tube feeds. The patient's sputum showed evidence of gram-negative bacilli. He is a [facility] candidate. They are planning to harvest his organs around 3 o'clock today. Initially, the wanted everything done. She changed her mind just a day ago. He has been seen by a number of consultants including Neurology. Current vital signs are reviewed, temperature is 99.1 heart rate 94, respiratory rate 22, blood pressure 92/52, saturations 97%. Appears in no acute distress. HEENT: Examination is grossly unremarkable. NECK: Supple, full range of motion. No adenopathy. Neck veins are flat. Orally placed endotracheal tube and NG tube are noted. CARDIOVASCULAR: Examination reveals a regular rhythm and rate. Heart rate mid 90s. S1, S2 normal. No murmur. LUNGS: Reveal diffuse coarse rhonchi. No wheezes or crackles. ABDOMEN: Soft. No bowel sounds. EXTREMITIES: Intact. Minimal edema. SKIN: Without rash. He has significant clubbing of the extremities. NEUROLOGIC: Examination is unchanged. LAB DATA: Reviewed. Blood gases show a pO2 of 194, pCO2 of 46, pH of 7.48. No additional labs done today. Microbiology showing gram-negative bacilli in the sputum from July 21. No chest x-ray today. MEDICATIONS: Reviewed. Currently, he is on Tylenol, Artificial Tears, aspirin, chlorhexidine, DuoNeb, Keppra, Ativan, Maalox, Lopressor, Narcan, Protonix, potassium replacement, propofol, Brilinta, and Depacon. ASSESSMENT: 1. Acute cardiopulmonary arrest, secondary to acute ST-segment elevation myocardial infarction, with prolonged resuscitative phase, and severe anoxic brain injury. 2. Status post intubation and mechanical ventilation on July 15 for hypoxemic respiratory failure, with failure to wean from mechanical ventilation. 3. Acute anoxic brain injury, currently being followed by Neurology. The patient has shown no improvement. 4. Diffuse cerebral edema, the patient previously on hypertonic saline. 5. Hyponatremia, secondary to hypertonic saline. 6. Coronary artery disease, with 90% occlusion of the mid LAD, status post stent placement. 7. Acute hypoxemic respiratory failure secondary to cardiac arrest. 8. Idiopathic pulmonary fibrosis/UIP, previous on the transplant list at [facility]. 9. History of chronic tobacco dependence. 10.Anticipated organ harvest by [facility], today at 3 pm. PLAN: The patient is a [facility] candidate. His organs will be harvested today at 3 pm. They are planning on taking the liver, kidneys, and possibly the heart valves. Additional recommendations and suggestions are forthcoming. He is on Diprivan and saline. Blood gases are reasonable. No additional recommendations are made. Obviously, prognosis is very poor. Critical care time 33 minutes. MMODL / IJN: [id number] /
[2020-07-24 11:32] LABS: Appearance,Urine Clear (Clear); Bilirubin,Urine Negative (Negative); Blood,Urine Moderate (Negative); Color,Urine Yellow; Glucose,Urine (UA) Negative (Negative); Ketones,Urine Negative (Negative); Leukocyte Esterase,Urine Negative (Negative); Mucus,Urine Rare /hpf; Nitrite,Urine Negative (Negative); PH, Urine 5.5 (5.0-8.0); Protein,Urine Trace (Negative); RBC,Urine 98 /hpf (0-5); Specific Gravity,Urine 1.035 (1.001-1.035); Squamous Epithelial Cell,Urine <1 /hpf (0-4); Urobilinogen,Urine <2.0 mg/dL (<2.0); WBC,Urine 4 /hpf (0-5)
[2020-07-24] MEDS ORDERED: PIPERACILLIN-TAZOBACTAM 3.375 GM in SODIUM CHLORIDE 0.9% 100 ML IVPB ONE (13:30)
[2020-07-24] MEDS ORDERED: HEPARIN SODIUM,PORCINE 5,000 UNIT/ML 1 ML VIAL IV STA (14:28)
[2020-07-24] MEDS ORDERED: GLYCOPYRROLATE 0.2 MG/ML 2 ML VIAL IVP PRN (14:29)
[2020-07-24] MEDS ORDERED: MORPHINE SULFATE 2 MG/ML SYRINGE IV PRN (14:29)
[2020-07-24] MEDS ORDERED: MORPHINE SULFATE (100 MG/2 ML) 100 MG in SODIUM CHLORIDE 0.9% 100 ML IV SCH (14:30)
[2020-07-24] MEDS ORDERED: MORPHINE SULFATE 4 MG/ML SYRINGE IVP STA (14:39)
[2020-07-24] MEDS ORDERED: LORazepam 2 MG/ML INJ IV ONE (14:39)
[2020-07-24] MEDS ORDERED: MIDAZOLAM 2 MG/2 ML VIAL ONE (14:58)
[2020-07-24] MEDS ORDERED: LORazepam 2 MG/ML INJ ONE (15:03)
[2020-07-24 15:08] LABS: Bilirubin, Delta 0.5 mg/dL (0.0-0.2); Bilirubin,Unconjugated 0.7 mg/dL (0.0-1.1); Total Bilirubin 1.2 mg/dL (0.2-1.3)
[2020-07-24] MEDS ORDERED: ONDANSETRON 4 MG/2 ML VIAL IVP PRN (17:45)
[2020-07-24] MEDS ORDERED: ARTIFICIAL TEARS-HYPROMELLOSE DROPS 15 ML BTL BOTH EYES PRN (17:45)
[2020-07-24] MEDS ORDERED: ACETAMINOPHEN SUPPOSITORY 650 MG SUPP RECTAL PRN (17:45)
[2020-07-24] MEDS ORDERED: DRY MOUTH SPRAY 44.3 SPRAY/44.3 ML SPRAY MUCOUS MEM PRN (17:45)
--- NOTE | 2020-07-24 17:45 | P.EN ---
Patient transitioned to comfort measure as 1500. Taken to the operating room for possible organ donation with [facility]. Prior to going transition to comfort I spoke with family and they were in agreement with pre medication prior to extubation to ensure no seizure activity and pain control. We proceeded to the OR and his propofol was stopped he was given versed 5 mg at 1539 pm, Heparin per [facility] of life protocol. He was extubated at 1545. He was started on a morphine gtt at 2 mg/hr at time of extubation. This was bolused and increased inordered to maintain comfort as needed. He given the following medications for comfort: 1548 Versed 2 mg 1600 Versed 2 mg 1604 Ativan 2 mg 1625 Versed 1 mg 1627 Ativan 4 mg 1644 Ativan 4 mg He did not pass within 90 minutes he was take back to the ICU and made comfort measure. Family accompained him back to the ICU.
[2020-07-24 17:50] VITALS: PULSE 102; RESP 31
--- NOTE | 2020-07-24 19:06 | P.PN ---
Subjective Progress Note Date: 07/24/20 Patient was seen at bedside and he remained to be intubated on ventilator. Patient was on propofol 20 mcg/kg/min. per the patient nurse when she turned the propofol down to 10mcg/kg/min patient was seizing. Therefore the pump was increased to 20mcg/kg/min. Today the patient is schedule for organ donation. Objective - Vital Signs Vital signs: Vital Signs Temp 99.1 F 07/24/20 09:00 Pulse 102 H 07/24/20 15:00 Resp 31 H 07/24/20 15:00 BP 90/67 07/23/20 23:00 Pulse Ox 97 07/24/20 15:00 Intake & Output 07/23/20 07/24/20 07/24/20 18:59 06:59 18:59 Intake Total 561 706.3 189.9 Output Total 1520 725 255 Balance -959 -18.7 -65.1 Weight 91.3 kg Intake: IV 356 547 152 0.9 NS 120 120 40 Pressure bag 36 27 12 Valproate Sodium 500 mg 100 In Sodium Chloride 0.9% 100 ml @ 100 mls/hr IVPB Q6HR JB Rx#:[id number] levETIRAcetam IV 1,500 mg 100 400 100 In Saline 1 100ml.bag @ 400 mls/hr IVPB Q12HR JB Rx#:[id number] Intake, IV Titration 81 159.3 37.9 Amount propofoL 1,000 mg In 81 159.3 37.9 Empty Bag 1 bag @ Titrate IV .Q0M JB Rx#: [id number] Tube Feeding 94 Other 30 Output: Urine 1520 725 255 Other: Voiding Method Indwelling Catheter Indwelling Catheter Indwelling Catheter ABP, PAP, CO, CI - Last Documented Arterial Blood Pressure 94/58 - Exam GENERAL: The patient is intubated on ventilator and on IV Propofol 20mcg/kg/min. LUNG: Intubated on ventilator and breathing over the vent. NEUROLOGICAL: Limited because of patient's condition Higher mental function: The patient is comatose. GCS 1 (E1, V1, M1). Not follo wing commands or attempting to verbalize. Pupils are rounds and are about 2mm bilaterally and sluggishly reactive to light. Primary gaze is downward. No facial weakness. Motor: Strength unable to assess because of patient's condition. No movement noted to painful stimuli throughout. No spontaneous movement noted. No posturing is noted. Sensation: Could not be assessed because of his condition. Reflexes: 1+ throughout. Plantars are mute bilaterally. - Labs CBC & Chem 7: 07/24/20 09:50 07/24/20 09:50 Labs: Abnormal Lab Results - Last 24 Hours (Table) 07/23/20 07/23/20 07/23/20 Range/Units 18:44 20:16 20:16 WBC 18.4 H (3.8-10.6) k/uL Neutrophils # 14.2 H (1.3-7.7) k/uL Fibrinogen 830 H (200-500) mg/dL D-Dimer 8.44 H (<0.60) mg/L FEU ABG pH (7.35-7.45) ABG pCO2 (35-45) mmHg ABG pO2 (83-108) mmHg ABG HCO3 (21-25) mmol/L ABG Total CO2 (19-24) mmol/L ABG O2 Saturation (94-97) % Sodium (137-145) mmol/L Chloride (98-107) mmol/L Carbon Dioxide (22-30) mmol/L BUN (9-20) mg/dL Glucose (74-99) mg/dL POC Glucose (mg/dL) 105 H (75-99) mg/dL Magnesium (1.6-2.3) mg/dL Total Bilirubin (0.2-1.3) mg/dL Delta Bilirubin (0.0-0.2) mg/dL AST (17-59) U/L ALT (4-49) U/L Albumin (3.5-5.0) g/dL Urine Protein (Negative) Urine Blood (Negative) Urine RBC (0-5) /hpf Urine Mucus (None) /hpf 07/23/20 07/23/20 07/24/20 Range/Units 20:16 20:21 04:52 WBC (3.8-10.6) k/uL Neutrophils # (1.3-7.7) k/uL Fibrinogen (200-500) mg/dL D-Dimer (<0.60) mg/L FEU ABG pH 7.50 H 7.48 H (7.35-7.45) ABG pCO2 46 H (35-45) mmHg ABG pO2 139 H 194 H (83-108) mmHg ABG HCO3 34 H 34 H (21-25) mmol/L ABG Total CO2 35 H 35 H (19-24) mmol/L ABG O2 Saturation 99.5 H 99.1 H (94-97) % Sodium 153 H (137-145) mmol/L Chloride 114 H (98-107) mmol/L Carbon Dioxide 36 H (22-30) mmol/L BUN 37 H (9-20) mg/dL Glucose 118 H (74-99) mg/dL POC Glucose (mg/dL) (75-99) mg/dL Magnesium 2.7 H (1.6-2.3) mg/dL Total Bilirubin (0.2-1.3) mg/dL Delta Bilirubin (0.0-0.2) mg/dL AST 72 H (17-59) U/L ALT 70 H (4-49) U/L Albumin 3.2 L (3.5-5.0) g/dL Urine Protein (Negative) Urine Blood (Negative) Urine RBC (0-5) /hpf Urine Mucus (None) /hpf 07/24/20 07/24/20 07/24/20 Range/Units 05:38 09:50 09:50 WBC 17.9 H (3.8-10.6) k/uL Neutrophils # 14.3 H (1.3-7.7) k/uL Fibrinogen 789 H (200-500) mg/dL D-Dimer 6.09 H (<0.60) mg/L FEU ABG pH (7.35-7.45) ABG pCO2 (35-45) mmHg ABG pO2 (83-108) mmHg ABG HCO3 (21-25) mmol/L ABG Total CO2 (19-24) mmol/L ABG O2 Saturation (94-97) % Sodium (137-145) mmol/L Chloride (98-107) mmol/L Carbon Dioxide (22-30) mmol/L BUN (9-20) mg/dL Glucose (74-99) mg/dL POC Glucose (mg/dL) 102 H (75-99) mg/dL Magnesium (1.6-2.3) mg/dL Total Bilirubin (0.2-1.3) mg/dL Delta Bilirubin (0.0-0.2) mg/dL AST (17-59) U/L ALT (4-49) U/L Albumin (3.5-5.0) g/dL Urine Protein (Negative) Urine Blood (Negative) Urine RBC (0-5) /hpf Urine Mucus (None) /hpf 07/24/20 07/24/20 07/24/20 Range/Units 09:50 09:50 10:00 WBC (3.8-10.6) k/uL Neutrophils # (1.3-7.7) k/uL Fibrinogen (200-500) mg/dL D-Dimer (<0.60) mg/L FEU ABG pH 7.50 H (7.35-7.45) ABG pCO2 (35-45) mmHg ABG pO2 142 H (83-108) mmHg ABG HCO3 34 H (21-25) mmol/L ABG Total CO2 35 H (19-24) mmol/L ABG O2 Saturation 99.0 H (94-97) % Sodium 155 H (137-145) mmol/L Chloride 117 H (98-107) mmol/L Carbon Dioxide 37 H (22-30) mmol/L BUN 38 H (9-20) mg/dL Glucose 125 H (74-99) mg/dL POC Glucose (mg/dL) (75-99) mg/dL Magnesium 2.8 H (1.6-2.3) mg/dL Total Bilirubin 1.4 H (0.2-1.3) mg/dL Delta Bilirubin 0.5 H (0.0-0.2) mg/dL AST 63 H (17-59) U/L ALT 61 H (4-49) U/L Albumin 3.2 L (3.5-5.0) g/dL Urine Protein (Negative) Urine Blood (Negative) Urine RBC (0-5) /hpf Urine Mucus (None) /hpf 07/24/20 Range/Units 10:50 WBC (3.8-10.6) k/uL Neutrophils # (1.3-7.7) k/uL Fibrinogen (200-500) mg/dL D-Dimer (<0.60) mg/L FEU ABG pH (7.35-7.45) ABG pCO2 (35-45) mmHg ABG pO2 (83-108) mmHg ABG HCO3 (21-25) mmol/L ABG Total CO2 (19-24) mmol/L ABG O2 Saturation (94-97) % Sodium (137-145) mmol/L Chloride (98-107) mmol/L Carbon Dioxide (22-30) mmol/L BUN (9-20) mg/dL Glucose (74-99) mg/dL POC Glucose (mg/dL) (75-99) mg/dL Magnesium (1.6-2.3) mg/dL Total Bilirubin (0.2-1.3) mg/dL Delta Bilirubin (0.0-0.2) mg/dL AST (17-59) U/L ALT (4-49) U/L Albumin (3.5-5.0) g/dL Urine Protein Trace H (Negative) Urine Blood Moderate H (Negative) Urine RBC 98 H (0-5) /hpf Urine Mucus Rare H (None) /hpf Microbiology - Last 24 Hours (Table) 07/21/20 15:25 Gram Stain - Final Sputum Sputum Culture - Final Serratia marcescens 07/22/20 05:20 Blood Culture - Preliminary Blood No Growth after 48 hours Assessment and Plan Assessment: This is a 54 year-old gentleman with history of pulmonary fibrosis who presented to the emergency department on 07/15/2020 because of cardiac arrest at home lasting 20 minutes. CPR was started and he was in V-fib and received shocked by EMS. As result he was intubated and on ventilaror. EKG showed STEMI Anoxic brain injury due to cardiac arrest Convulsive status due to above Encephalopathy the due primarily anoxic brain injury from his cardiac arrest Hypernatremia due to hypertonic saline. Pyrexia Cardiac arrest lasting 20 minutes STEMI status post PCI Elevated troponin due to above Leukocystosis--tending down Acute hypoxic respiratory failure requiring mechanical ventilation Acute kidney injury--resolved Elevated liver function tests due to above (like as shock to liver)---improving History of pulmonary fibrosis Plan: CT of the head: No acute intracranial abnormality. CT of the head on the 07/19/2020 was reported as no acute hemorrhage, hydrocephalus or mass effect. Unchanged. Diffuse cerebral edema. CT of the head 07/21/20: Was reported as a there is loss of vega and white matter differentiation and effacement of sulci over the posterior aspect of the frontal lobe and parietal lobes bilaterally, unchanged since the 07/19/2002 but increased Compared to 07/15/2020. The etiology is unknown, possible infarct or edema. Consider MRI for further catheterization if not already performed. It was attempted to transfer the patient to [facility] and [facility] but denies because of patient outcome (was notified by primary team that [facility] felt it was a poor prognosis). EEG on 07/17/2020: The background slowing suggestive of mild to moderate encephalopathy. There are no focal slowing, epileptiform discharges or seizure seen during the study. Excessive fast activity is a likely due to medication (sedation) effect. EEG 07/20/20 pre-liminary report: The study was obscured because of signfiicant artificant throughout the study. There are few EPOCS without myogenic artificat and no seizure or epileptiform discharges seen. EEG with NIMBEX (07/21/20): Mcdonald slowing suggestive of severe encephalopathy. There are no focal slowing, peripheral discharges or seizure and seen throughout the study. EEG 07/22/2020: Showed that the patient was in the status epilepticus. The seizure resolved after 4 mg Ativan. The EEG study compared to the previous study on 07/21/2020 is worse. No clear background over bilateral hemisphere. Patient is on Keppra 1500 mg twice a day. Is on Depakote 500mg Q6 hours. On IV propofol 20mcg/kg/min Today he was taken for possible donation with [facility]. He was given Versed 5mg, Morphine 2mg/hr and Versed 8mg in total and 6mg of Ativan but he did not pass. The family made him comfort care. I came by the patient room in later evening and spoke with and rest of family who are at bedside. Jose Villa M.D. Neuro-hospitalist Time with Patient: Less than 30
--- NOTE | 2020-07-24 20:46 | P.DS ---
Providers Date of admission: 07/15/20 11:54 Expected date of discharge: 07/24/20 Attending physician: Darnell Claudio MD Consults: 07/15/20 11:12 Consult Physician Stat Consulting Provider: Frederic Olivarez Consult Reason/Comments: STEMI ACTIVATION COMPLETE Do you want consulting provider notified?: Yes 07/15/20 12:21 Consult Physician Routine Consulting Provider: Frederic Olivarez Consult Reason/Comments: Post Interventional patient Do you want consulting provider notified?: Already Contacted 07/15/20 12:39 Consult Physician Routine Consulting Provider: Ozzie Patton Consult Reason/Comments: re: pulmonary fibrosis, vent management Do you want consulting provider notified?: Yes 07/15/20 15:24 Consult Physician ONCE Consulting Provider: Jose Villa Consult Reason/Comments: cardiac arrest, fall Do you want consulting provider notified?: Yes 07/21/20 10:23 Consult Physician Routine Consulting Provider: Javon Crockett Consult Reason/Comments: Trach and Peg placement Do you want consulting provider notified?: Yes Primary care physician: Stated None Hospital Course: Discharge Diagnosis: Aborted sudden cardiac arrest STEMI with stent to the LAD Ischemic systolic cardiomyopathy Diffuse cerebral edema due anoxic encephalopathy Leukocytosis, undetermined etiology concerns for developing infection Hypernatremia, due to hypertonic saline Acute hypoxic respiratory failure secondary to cardiopulmonary arrest Severe idiopathic pulmonary fibrosis/UIP being worked up for lung transplant at [facility] History of chronic tobacco abuse Ventricular fibrillation Leukocytosis, reactive- prolacitonin Acute kidney injury, resolved Ischemic hepatitis Idiopathic pulmonary fibrosis Hospital Course: Patient is a 54-year-old male with a history of pulmonary fibrosis, angina, and GERD who initially complained of indigestion, but had a syncopal episode and became pulseless. His weight*bystander CPR and then EMS continued CPR. He had Ros within the emergency department. Probable down time was 20+ minutes. He was found to have ST segment elevated myocardial infarction emergently to the Hearing Consultant with a stent placed to the LAD. He was started on broad went up from the Hearing Consultant and admitted to the ICU. Critical care and neurology were consulted. Neurology reviewed his CT head and thought there was subtle vega- white matter differentiation loss. He underwent an echocardiogram which showed left ventricle hypokinesis with an ejection fraction of 30-35%. He was started on Lasix. He was noted to be unresponsive on the vent however was breathing over the vent. On the morning of 07/17 he underwent an EEG which showed background slowing suggestive mild to moderate encephalopathy. Neurology initially felt we would know more about the neuro possible recovery 1-2 weeks after his cardiac arrest. Repeat CT brain was done on the evening of 07/17/20 which shows diffuse cerebral edema with slight loss of the normal vega-white matter differentiation. Neurology does not cover hospital over the weekend however they were able to take a phone call on 07/18 due to the diffuse cerebral edema they recommended initiating 3% saline as well as mannitol. Patient was monitored closely. He continues to breath over the vent have a positive cough but no gag. He has not had any neurologic improvement despite hypertonic saline and manitol. has elected to keep him a full code. He started having seizure activity on 07/21 and was started on keppra. He conitnued to have seizure activity and was started on Valproic acid. He conitnued to decline and family decided to transition to compfort measures. Organ donation was attempted (See event note). He was continued on morphine gtt and as needed ativan. Patient seen and examined at bedside with family present non responsive. Exam done during OR time for organ donation Gen: appears comfortable, no distress, no diaphoresis CV: S1S2 regular, + PT pulse bilateral Lungs: course BS bilateral, chest rise equal, + sternal retraction Neuro: No fasiculation, no tremors, no seizure activity, no purposeful m ovements. A total of 35 minutes of time were spent preparing this complex discharge summary . Plan - Discharge Summary Discharge Rx Participant: Yes New Discharge Prescriptions: No Action Nintedanib Esylate [Ofev] 150 mg PO Q12H Loperamide HCl [Imodium A-D] 2 - 4 mg PO QID PRN PRN Reason: Diarrhea Cetirizine HCl 10 mg PO DAILY Omeprazole Magnesium [PriLOSEC OTC] 20 mg PO DAILY Discharge Medication List Cetirizine HCl 10 mg PO DAILY 07/15/20 [History] Loperamide HCl [Imodium A-D] 2 - 4 mg PO QID PRN 07/15/20 [History] Nintedanib Esylate [Ofev] 150 mg PO Q12H 07/15/20 [History] Omeprazole Magnesium [PriLOSEC OTC] 20 mg PO DAILY 07/15/20 [History] Follow up Appointment(s)/Referral(s): None,Stated [Primary Care Provider] - 1-2 days
[2020-07-25 16:37] LABS: LD Isoenzymes 1 32 % (19-38); LD Isoenzymes 2 33 % (30-43); LD Isoenzymes 3 13 % (16-26); LD Isoenzymes 4 6 % (3-12); LD Isoenzymes 5 16 % (3-14); Lactacte Dehydrogenase(LD) ISO 478 U/L (120-250)
--- NOTE | 2020-07-27 16:29 | CDI ---
Documentation Clarification Form Date: 07/27/2020 03:57:06 PM From: Radha Greenfield RN, CCDS Email: [email or web address] Admit Date: 07/15/2020 11:54:00 AM Patient Name: Scarlet Strauss Visit Number: [id number] Discharge Date: 07/24/2020 08:30:00 PM ATTENTION: The Clinical Documentation Specialists (CDI) and [facility] Coding Staff appreciate your assistance in clarifying documentation. Please respond to the clarification below the line at the bottom and electronically sign. The CDI & [facility] Coding staff will review the response and follow-up if needed. Please note: Queries are made part of the Legal Health Record. If you have any questions, please contact the author of this message via ITS. Dr. Candy Christine History/Risk Factors: H&P indicates: "54 year old man with history of pulmonary fibrosis in line to receive lung transplant (treated with nintedanib) presented after complaining of indigestion, then having syncopal, then pulseless episode. He was down for approximately 20 minutes prior to EMS arrival, during which time his had begun chest compressions .Initial rhythm was V Fib, and patient was shocked 4 times en route with ROSC; he also rec'd 300mg amiodarone, and 3 rounds of epinephrine during the code." Clinical Indicators: 07/16 Consult note: "Chest x-ray showed interstitial lung disease, cannot rule out underlying congestive heart failure. Trial of diuresis, chest x-ray is not clear whether this is all fibrosis or could be a component of congestive heart failure, cannot tell, uncertain." Acute hypoxic respiratory failure. 07/19-07/24 progress notes indicate ischemic systolic cardiomyopathy BNP: 07/23: 2300. 07/24: 2780 07/18 Echocardiogram Results: left ventricular systolic function is severely impaired with EF 30-35% 07/15 Chest X Ray: Stable diffuse bilateral pulmonary infiltrates 07/18 Chest X Ray: Diffuse bilateral edema and/or infiltrates suspected. Cannot exclude underlying chronic fibrotic change 07/21 Chest X Ray: Persistent bilateral multifocal infiltrates and/or edema Treatment: IV Lasix 40mg daily. S/P STEMI and CHAVA for stenosis and STEMI In your professional opinion, can you please clarify if CHF was ruled in and indicate type and acuity if known? Systolic Heart Failure: Acute Chronic Acute on Chronic Diastolic Heart Failure: Acute Chronic Acute on Chronic Systolic & Diastolic Heart Failure: Acute Chronic Acute on Chronic Heart Failure Unable to Determine Other, please specify This was reflective of his interstitial lung disease and not CHF MTDD
[2020-07-28 16:37] LABS: LD Isoenzymes 1 33 % (19-38); LD Isoenzymes 2 30 % (30-43); LD Isoenzymes 3 14 % (16-26); LD Isoenzymes 4 8 % (3-12); LD Isoenzymes 5 15 % (3-14); Lactacte Dehydrogenase(LD) ISO 515 U/L (120-250)
== END 2020-07-24 20:30 | disposition expired | DRG 246 ==
LOC: EC 11:02 → 2SICU 11:54
PROVIDERS: ADMIT Internal Medicine; ATTEND Internal Medicine
PROC: 0D9670Z Drainage of Stomach with Drainage Device, Via Natural or Artificial Opening (ICD-10-PCS; 2020-07-15)
PROC: 0BH17EZ Insertion of Endotracheal Airway into Trachea, Via Natural or Artificial Opening (ICD-10-PCS; 2020-07-15)
PROC: B2111ZZ Fluoroscopy of Multiple Coronary Arteries using Low Osmolar Contrast (ICD-10-PCS; principal; 2020-07-15 17:45)
PROC: 027034Z Dilation of Coronary Artery, One Artery with Drug-eluting Intraluminal Device, Percutaneous Approach (ICD-10-PCS; principal; 2020-07-15 17:45)
PROC: 5A1955Z Respiratory Ventilation, Greater than 96 Consecutive Hours (ICD-10-PCS; 2020-07-15 17:45)
PROC: 4A133J1 Monitoring of Arterial Pulse, Peripheral, Percutaneous Approach (ICD-10-PCS; 2020-07-18)
PROC: 3E0G76Z Introduction of Nutritional Substance into Upper GI, Via Natural or Artificial Opening (ICD-10-PCS; 2020-07-18)
PROC: 02HV33Z Insertion of Infusion Device into Superior Vena Cava, Percutaneous Approach (ICD-10-PCS; 2020-07-18)
PROC: 03HY32Z Insertion of Monitoring Device into Upper Artery, Percutaneous Approach (ICD-10-PCS; 2020-07-18)
PROC: 4A133B1 Monitoring of Arterial Pressure, Peripheral, Percutaneous Approach (ICD-10-PCS; 2020-07-18)
DX: I21.09 ST elevation (STEMI) myocardial infarction involving other coronary artery of anterior wall (principal); J96.01 Acute respiratory failure with hypoxia; R40.20 Unspecified coma; K72.00 Acute and subacute hepatic failure without coma; G93.6 Cerebral edema; J84.9 Interstitial pulmonary disease, unspecified; G93.1 Anoxic brain damage, not elsewhere classified; N17.9 Acute kidney failure, unspecified; Z99.11 Dependence on respirator [ventilator] status; E87.0 Hyperosmolality and hypernatremia; E87.3 Alkalosis; E87.1 Hypo-osmolality and hyponatremia; I46.2 Cardiac arrest due to underlying cardiac condition; J84.112 Idiopathic pulmonary fibrosis; I49.01 Ventricular fibrillation; Z76.82 Awaiting organ transplant status; G40.901 Epilepsy, unspecified, not intractable, with status epilepticus; I25.5 Ischemic cardiomyopathy; I25.10 Atherosclerotic heart disease of native coronary artery without angina pectoris; Z66 Do not resuscitate; Z51.5 Encounter for palliative care; Z20.828 Contact with and (suspected) exposure to other viral communicable diseases; E78.5 Hyperlipidemia, unspecified; K21.9 Gastro-esophageal reflux disease without esophagitis; K52.9 Noninfective gastroenteritis and colitis, unspecified; I49.3 Ventricular premature depolarization; D72.829 Elevated white blood cell count, unspecified; Z79.899 Other long term (current) drug therapy; Z87.891 Personal history of nicotine dependence; Z88.0 Allergy status to penicillin
CPT/HCPCS: 36415; 36600; 70450; 71045; 71260; 74177; 80048; 80053; 81001; 82140; 82150; 82248; 82805; 82977; 83036; 83625; 83690; 83735; 83880; 83930; 84100; 84132; 84145; 84295; 84443; 84450; 84460; 84484; 85025; 85027; 85347; 85379; 85384; 85610; 85730; 86850; 86900; 86901; 87040; 87070; 87077; 87086; 87186; 87205; 87635; 93005; 93306; 93454; 94002; 94003; 94640; 95816; 95819; 96374; 99285